=== PATIENT | female | born 1935 | race Caucasian/White ===

== ENCOUNTER 2023-08-05 15:58 | Inpatient (IN) ==
--- NOTE | 2023-08-05 16:26 | Emergency Department Note ---
Impression & Plan AMS (altered mental status), Acute hyponatremia ED Provider Note NAME: SAGAR CAIN AGE: 87 SEX: F : 1935 ARRIVES VIA: Walk-In INFORMANT: Patient, daughter ED PROVIDER(S): Bashir Hoyos DO CHIEF COMPLAINT: AMS HPI: Patient is an 87-year-old female who presents to the ER with a past medical history knee pain, DJD and hyperlipidemia as well as GERD for altered mental status. Daughter who is present at bedside gives the entire history and notes that patient normally texted her around 11 AM. Last known well was last night. She did not text her at 11 and when she eventually called her patient was very confused. She does understand how to work the phone were held attacks. She does not know what was going on. When the daughter got home the house was a mess and patient was not making sense and consequently she brought her in for evaluation. Patient was complaining of a headache at that time. Currently patient complains of a headache as well as some chest pain which has been present since this morning although she forgot about the chest pain intermittently during the exam. Denies any belly pain nausea vomiting or diarrhea. No dysuria urgency or frequency. ADDITIONAL HISTORY OBTAINED: Per HPI Chronic Medical/Social Conditions Affecting Care: Per HPI PAST MEDICAL HISTORY:See Below PAST SURGICAL HISTORY:See Below FAMILY HISTORY:See Below SOCIAL HISTORY:See Below HOME MEDICATIONS:See Below ALLERGIES:See Below VITALS:See Below PHYSICAL EXAMINATION: GENERAL: Sitting up in bed, alert, well appearing, well nourished, no distress, non-toxic EYE EXAM: normal conjunctiva. PERRL and EOM's grossly intact. OROPHARYNX: no exudate, no erythema, lips, buccal mucosa, and tongue normal and mucous membranes are moist NECK: supple, no nuchal rigidity, no adenopathy, non-tender LUNGS: Clear to auscultation. Normal chest wall mechanics HEART: no murmurs, S1 normal and S2 normal ABDOMEN: abdomen soft, non-tender, normo-active bowel sounds, no masses, no rebound or guarding. BACK: Back is symmetrical on inspection and there is no deformity, no midline tenderness, no CVA tenderness. SKIN: no rashes and no bruising UPPER EXTREMITIES: upper extremities are grossly normal. LOWER EXTREMITIES: No pitting edema. NEURO EXAM: Oriented to person but not place or year, cranial nerves II-XII intact, normal speech, no weakness of arms, no weakness of legs. No drift. Finger to nose intact. Gross sensation intact. MEDICAL DECISION MAKING: Patient is an 87-year-old female who presents ER for altered mental status. IV was established blood was obtained. Labs show no significant leukocytosis or anemia. INR unremarkable. BMP along LFTs bilirubin and troponin was negative. Lipase was normal. UA was clean. Patient presented to the ER for altered mental status. No clear source with a negative CT head. She was updated bedside. She was given IV fluids. Updated daughter and patient was admitted after discussion with the hospitalist for further evaluation management treatment. Consults/Care Managements Discussions: Per MDM Triage Nursing notes reviewed. Limited review of prior medical records performed Vital Signs: reviewed and remarkable for HTN Differential diagnosis: Differential diagnoses includes but is not limited to toxic, metabolic, infectious, traumatic, cardiac, neurologic, hematologic, psychiatric and inflammatory etiologies. ER treatment provided: See below Diagnostics interpreted by me include EKG and cardiac monitoring as listed below: -Cardiac Monitoring: An order was placed for continuous cardiac monitoring. The monitor shows a rate of 80 with sinus rhythm. -ECG: Sinus rhythm rate 74 Left axis Septal Q waves QTc 414 -Laboratory studies:Interpreted by me as stated above in MDM and shown below. Imaging studies: Xrays: As interpreted by me: Portable AP upright 1 view of the chest shows no focal infiltrate CTs show: CTA of the head and neck was negative Procedures:none Critical Care: None Past Med/Surg History Medical History Aortic valve sclerosis CKD (chronic kidney disease) stage 3, GFR 30-59 ml/min GERD (gastroesophageal reflux disease) H/O: HTN (hypertension) Hyperparathyroidism Hypothyroid IBS (irritable bowel syndrome) Spinal stenosis, lumbar Surgical History No pertinent past surgical history Social History Smoking Status: Never smoker Hx Alcohol Use: No Hx Substance Use: No Preferred Language: Dominican current occupational status: retired Feels Safe at Home: Yes Allergies Allergies Allergy/AdvReac Type Severity Reaction Status Date / Time domperidone Allergy Unknown UNKNOWN Unverified 08/05/23 17:19 ibuprofen Allergy Unknown CANNOT Unverified 08/05/23 17:19 TAKE DUE KIDNEY FCT naproxen Allergy Unknown CANNOT Unverified 08/05/23 17:19 TAKE DUE TO KIDNEY FCT Penicillins Allergy Unknown HAS Verified 08/05/23 17:19 TOLERATED CEPHALOSPORINS Sulfa (Sulfonamide Allergy Unknown Unknown Verified 08/05/23 17:21 Antibiotics) ibandronate sodium Allergy Unknown Verified 08/05/23 17:20 [From [facility]] shellfish derived Allergy Unknown Verified 08/05/23 17:21 aspirin AdvReac Unknown Unknown Verified 08/05/23 17:19 Home Meds Home Medications Medication Instructions Recorded Confirmed acetaminophen 500 mg tablet 1,000 mg PO QAM 08/05/23 08/05/23 (Tylenol Extra Strength) amlodipine 2.5 mg tablet 2.5 mg PO QAM 08/05/23 08/05/23 aspirin 81 mg tablet,delayed 81 mg PO DAILY 08/05/23 08/05/23 release coenzyme Q10 10 mg capsule (Co 0 mg PO DAILY 08/05/23 08/05/23 Q-10) famotidine 20 mg tablet 20 mg PO AMHS 08/05/23 08/05/23 fentanyl 50 mcg/hr transdermal 1 patch topical [id number] 08/05/23 08/05/23 patch fluticasone propionate 50 2 spray intranasal DAILY PRN Nasal 08/05/23 08/05/23 mcg/actuation nasal Congestion spray,suspension (Flonase Allergy Relief) gabapentin 400 mg capsule 400 mg PO TID 08/05/23 08/05/23 hydrochlorothiazide 25 mg tablet 12.5 mg PO QA 08/05/23 08/05/23 levothyroxine 75 mcg tablet 75 mcg PO QAM 08/05/23 08/05/23 lisinopril 30 mg tablet 30 mg PO QAM 08/05/23 08/05/23 metoprolol succinate 25 mg 25 mg PO .DAILY @ LUNCH 08/05/23 08/05/23 tablet,extended release 24 hr pantoprazole 40 mg tablet,delayed 40 mg PO DAILY 08/05/23 08/05/23 release rosuvastatin 5 mg tablet 5 mg PO DAILY 08/05/23 08/05/23 Results & Data (ED) Vital Signs Vital Signs - 24 hr 08/05/23 16:01 08/05/23 16:14 08/05/23 16:22 Temperature 36.8 C Temperature Source Temporal Artery Scan Pulse Rate 78 77 Pulse Rate from SpO2 Sensor Pulse Rhythm Regular Pulse Strength Normal Respiratory Rate 20 Respiratory Effort / Characteristics Non-Labored Spontaneous Respiratory Depth Normal Respiratory Pattern Regular Blood Pressure 157/90 H Blood Pressure Mean 112 Blood Pressure Position Sitting Pulse Oximetry 93 92 Oxygen Delivery Method Room Air Room Air Sepsis Recent Fever Within 48 Hours No Sepsis New/Unexplained Change in Mental Status No Sepsis Action Taken by Nursing No Action Required 08/05/23 17:50 Temperature Temperature Source Pulse Rate Pulse Rate from SpO2 Sensor 74 Pulse Rhythm Pulse Strength Respiratory Rate Respiratory Effort / Characteristics Respiratory Depth Respiratory Pattern Blood Pressure 140/69 Blood Pressure Mean 92 Blood Pressure Position Pulse Oximetry 93 Oxygen Delivery Method Sepsis Recent Fever Within 48 Hours Sepsis New/Unexplained Change in Mental Status Sepsis Action Taken by Nursing Laboratory Data 08/05/23 16:15 08/05/23 16:15 Lab Results 08/05/23 08/05/23 08/05/23 Range/Units 16:15 16:24 16:29 WBC 10.29 (4.8-10.8) K/ul RBC 4.66 (4.20-5.40) M/uL Hgb 13.9 (12.0-16.0) g/dl Hct 40.5 (37.0-47.0) % MCV 86.9 (80.0-100.0) fL MCH 29.8 (25.0-34.0) pg MCHC 34.3 (32.0-36.0) g/dL RDW Std Deviation 43.2 (36.4-46.3) fL RDW Coeff of Jaylene 13.7 (11.5-14.5) % Plt Count 252 (130-400) K/uL MPV 9.0 L (9.4-12.4) fL Immature Gran % (Auto) 0.4 % Neut % (Auto) 76.2 % Lymph % (Auto) 13.8 % Scott % (Auto) 8.6 % Eos % (Auto) 0.6 % Baso % (Auto) 0.4 % Neut # (Auto) 7.84 H (1.40-6.50) K/uL Lymph # (Auto) 1.42 (1.20-3.40) K/uL Scott # (Auto) 0.89 H (0.11-0.59) K/uL Eos # (Auto) 0.06 (0.00-0.50) K/uL Baso # (Auto) 0.04 (0.00-0.20) K/uL Immature Gran # (Auto) 0.04 (0.01-0.20) K/uL PT 10.9 (9.0-12.0) Seconds INR 1.0 (0.9-1.1) Sodium 134 L (136-145) mmol/L Potassium 4.6 (3.5-5.1) mmol/L Chloride 101 (98-107) mmol/L Carbon Dioxide 26 (21-32) mmol/L Anion Gap 7 (3-11) BUN 24 H (6-23) mg/dl Creatinine 1.28 H (0.6-1.2) mg/dl Est Cr Clr Drug Dosing 24.7 ml/min Est GFR ( Amer) 43.8 ml/min Est GFR (Non-Af Amer) 37.8 ml/min BUN/Creatinine Ratio 18.8 (10-20) Glucose 89 (70-99(Fasting)) mg/dl POC Glucose 85 (70-99) mg/dl Calcium 9.9 (8.6-10.3) mg/dl Total Bilirubin 0.7 (0.2-1.0) mg/dl AST 15 (13-39) U/L ALT 11 (7-52) U/L Alkaline Phosphatase 49 (34-104) U/L Troponin I High Sens 8.7 (0-14) pg/ml Total Protein 7.9 (6.0-8.3) gm/dl Albumin 4.5 (3.4-5.0) gm/dl Globulin 3.4 (2.5-4.0) gm/dl Albumin/Globulin Ratio 1.3 (0.9-2) Lipase 32 (11-82) U/L Urine Color Yellow Urine Appearance Clear (Clear) Urine pH 6.5 (4.5-7.5) Ur Specific [place] 1.019 (1.000-1.030) Urine Protein Negative (Negative) Urine Glucose (UA) Negative (Negative) Urine Ketones Negative (Negative) Urine Blood 2+ H (Negative) Urine Nitrite Negative (Negative) Urine Bilirubin Negative (Negative) Urine Urobilinogen Negative (Negative) Ur Leukocyte Esterase Trace H (Negative) Urine WBC (Auto) 1-5 (0-5) /hpf Urine RBC (Auto) 10-30 H (0-4) /hpf U Hyaline Cast (Auto) 1-5 (0-5) /lpf U Epithel Cells (Auto) >30 H (0-5) /lpf Urine Bacteria (Auto) Negative (Negative) Administered Medications Discontinued Medications Sodium Chloride (Nss) 1,000 mls @ 999 mls/hr IV .Q1H1M ONE Stop: 08/05/23 17:22 Last Infusion: 08/05/23 18:31 Dose: Infused Documented By: Admin: 08/05/23 16:32 Dose: 999 mls/hr Documented By: LEO Ioversol (Optiray 350 500ml) 107 ml IV ONCE ONE Stop: 08/05/23 17:17 Last Admin: 08/05/23 17:17 Dose: 107 ml Documented By: PANDA Imaging Data Radiologist's Impression: Chest X-Ray 08/05/23 16:09 XR chest 1V portable CLINICAL HISTORY: Chest pain, nonspecific COMPARISON STUDY: Chest radiograph June 17, 2022. FINDINGS: Patient is rotated. No pneumothorax or pleural effusion is present. There is no consolidation or evidence for pulmonary edema. Cardiomediastinal silhouette is stable. IMPRESSION: No acute cardiopulmonary findings. No change in appearance of the chest. ACT 112: Negative or not required by law. Electronically signed by: Codey Cameron M.D. 08/05/2023 4:41 PM Head CTA 08/05/23 16:22 CT angio neck with con, CT angio head wo/w CLINICAL HISTORY: ams TECHNIQUE: Contiguous axial CT images of the head were acquired from the base of the skull to the vertex without intravenous contrast administration. CT angiography of the head and neck was performed following intravenous administration of iodinated contrast. Coronal and sagittal MIPS were obtained from the axial data set and were submitted for review. Automated dose lowering techniques and/or adjustment according to patient size were utilized for this examination. All measurements were calculated based on NASCET criteria. CT DOSE: 1214.79 mGy.cm Comparison: None available at the time of this dictation. FINDINGS: CT head: There is no acute intracranial hemorrhage or evidence of acute territorial infarction. No shift of the midline structures, mass effect, or extra-axial abnormalities are shown. Performed interstitial thickening is seen. CTA Neck: The left common carotid artery shares common origin with the innominate artery. Atherosclerotic plaque is present in the aortic arch and at the origin of the great vessels. The common carotid, external carotid, cervical segments of the internal carotid arteries, and the cervical segments of the vertebral arteries are patent without hemodynamically significant stenosis. The vertebral arteries are codominant. CTA Head: The anterior and posterior cerebral circulations are patent. No hemodynamically significant stenosis, aneurysm, dissection, or arteriovenous malformation is shown. IMPRESSION: 1. No acute intracranial hemorrhage, evidence of acute territorial infarction, or other acute intracranial disease process. 2. No occlusion, hemodynamically significant stenosis, or dissection in the major cervical arteries. 3. No occlusion, hemodynamically significant stenosis, aneurysm, dissection, or arteriovenous malformation in the major intracranial arteries. Assessment of stenosis of the internal carotid arteries is based on NASCET criteria. ACT 112: Negative or not required by law. Electronically signed by: Miquel Chua M.D. 08/05/2023 6:22 PM Neck CTA 08/05/23 16:22 CT angio neck with con, CT angio head wo/w CLINICAL HISTORY: ams TECHNIQUE: Contiguous axial CT images of the head were acquired from the base of the skull to the vertex without intravenous contrast administration. CT angiography of the head and neck was performed following intravenous administration of iodinated contrast. Coronal and sagittal MIPS were obtained from the axial data set and were submitted for review. Automated dose lowering techniques and/or adjustment according to patient size were utilized for this examination. All measurements were calculated based on NASCET criteria. CT DOSE: 1214.79 mGy.cm Comparison: None available at the time of this dictation. FINDINGS: CT head: There is no acute intracranial hemorrhage or evidence of acute territorial infarction. No shift of the midline structures, mass effect, or extra-axial abnormalities are shown. Performed interstitial thickening is seen. CTA Neck: The left common carotid artery shares common origin with the innominate artery. Atherosclerotic plaque is present in the aortic arch and at the origin of the great vessels. The common carotid, external carotid, cervical segments of the internal carotid arteries, and the cervical segments of the vertebral arteries are patent without hemodynamically significant stenosis. The vertebral arteries are codominant. CTA Head: The anterior and posterior cerebral circulations are patent. No hemodynamically significant stenosis, aneurysm, dissection, or arteriovenous malformation is shown. IMPRESSION: 1. No acute intracranial hemorrhage, evidence of acute territorial infarction, or other acute intracranial disease process. 2. No occlusion, hemodynamically significant stenosis, or dissection in the major cervical arteries. 3. No occlusion, hemodynamically significant stenosis, aneurysm, dissection, or arteriovenous malformation in the major intracranial arteries. Assessment of stenosis of the internal carotid arteries is based on NASCET criteria. ACT 112: Negative or not required by law. Electronically signed by: Miquel Chua M.D. 08/05/2023 6:22 PM Discharge Plan Visit Data Chief Complaint: TIA Symptoms Stated Complaint: HEADACHE, CONFUSION, WEAKNESS, MEM LOSS ED Provider: Bashir Hoyos Discharge Problem: AMS (altered mental status), Acute hyponatremia Patient Disposition: Admitted As Inpatient Discharge Instructions Interventions: ED Discharge Assessment Last Done: 08/05/23 21:25 Discharge Problem: AMS (altered mental status) Qualifiers: Altered mental status type: unspecified Qualified Code(s): R41.82 - Altered mental status, unspecified
[2023-08-05 16:27] LABS: Basophils # (auto) 0.04 K/uL (0.00-0.20); Basophils % (auto) 0.4 %; Eosinophils # (auto) 0.06 K/uL (0.00-0.50); Eosinophils % (auto) 0.6 %; Hematocrit (blood only) 40.5 % (37.0-47.0); Hemoglobin 13.9 g/dl (12.0-16.0); Immature Granulocytes # (auto) 0.04 K/uL (0.01-0.20); Immature Granulocytes % (auto) 0.4 %; Lymphocytes # (auto) 1.42 K/uL (1.20-3.40); Lymphocytes % (auto) 13.8 %; Mean Corpuscular Hemoglobin 29.8 pg (25.0-34.0); Mean Corpuscular Hgb Conc 34.3 g/dL (32.0-36.0); Mean Corpuscular Volume 86.9 fL (80.0-100.0); Monocytes # (auto) 0.89 K/uL (0.11-0.59); Monocytes % (auto) 8.6 %; Neutrophils # (auto) 7.84 K/uL (1.40-6.50); Neutrophils % (auto) 76.2 %; Platelet Count 252 K/uL (130-400); RDW Coefficient of Variation 13.7 % (11.5-14.5); RDW Standard Deviation 43.2 fL (36.4-46.3); Red Blood Count 4.66 M/uL (4.20-5.40); White Blood Count 10.29 K/ul (4.8-10.8)
[2023-08-05] MEDS: SODIUM CHLORIDE 0.9% 1,000 ML IV ONE (16:32)
[2023-08-05 16:40] LABS: Prothrombin Time 10.9 Seconds (9.0-12.0)
--- NOTE | 2023-08-05 16:42 | XRay Report ---
XR chest 1V portable CLINICAL HISTORY: Chest pain, nonspecific COMPARISON STUDY: Chest radiograph June 17, 2022. FINDINGS: Patient is rotated. No pneumothorax or pleural effusion is present. There is no consolidati on or evidence for pulmonary edema. Cardiomediastinal silhouette is stable. IMPRESSION: No acute cardiopulmonary findings. No change in appearance of the chest. ACT 112: Negative or not required by law. Electronically signed by: Codey Cameron M.D. 08/05/2023 4:41 PM
[2023-08-05 16:46] LABS: Albumin Level 4.5 gm/dl (3.4-5.0); Bilirubin,Total 0.7 mg/dl (0.2-1.0); Calcium 9.9 mg/dl (8.6-10.3); Potassium 4.6 mmol/L (3.5-5.1)
[2023-08-05 16:52] LABS: Albumin Globulin Ratio 1.3 (0.9-2); BUN Creatinine Ratio 18.8 (10-20); Creatinine Clr Calc Pharmacy 24.7 ml/min; Est GFR (African American) 43.8 ml/min; Est GFR (Non-African American) 37.8 ml/min; Globulin 3.4 gm/dl (2.5-4.0); Total Protein 7.9 gm/dl (6.0-8.3)
[2023-08-05 16:55] LABS: Appearance Urine Clear (Clear); Bacteria Urine Automated Negative (Negative); Bilirubin Urine Negative (Negative); Blood Urine 2+ (Negative); Color Urine Yellow; Epithelial Cell Urine Auto >30 /lpf (0-5); Glucose Urine UA Negative (Negative); Ketones Urine Negative (Negative); Leukocyte Esterase Urine Trace (Negative); Nitrite Urine Negative (Negative); Protein Urine Negative (Negative); Specific Gravity Urine 1.019 (1.000-1.030); Urobilinogen Urine Negative (Negative); pH Urine 6.5 (4.5-7.5)
[2023-08-05 16:55] LABS: Troponin I High Sensitivity 8.7 pg/ml (0-14)
[2023-08-05] MEDS: OPTIRAY 350 500ml IV ONE (17:17)
--- NOTE | 2023-08-05 18:23 | CT Scan Report ---
CT angio neck with con, CT angio head wo/w CLINICAL HISTORY: ams TECHNIQUE: Contiguous axial CT images of the head were acquired from the base of the skull to the dawood sidra without intravenous contrast administration. CT angiography of the head and neck was performed f ollowing intravenous administration of iodinated contrast. Coronal and sagittal MIPS were obtained fr om the axial data set and were submitted for review. Automated dose lowering techniques and/or adjus tment according to patient size were utilized for this examination. All measurements were calculated based on NASCET criteria. CT DOSE: 1214.79 mGy.cm Comparison: None available at the time of this dictation. FINDINGS: CT head: There is no acute intracranial hemorrhage or evidence of acute territorial infarction. No sh ift of the midline structures, mass effect, or extra-axial abnormalities are shown. Performed interstitial thickening is seen. CTA Neck: The left common carotid artery shares common origin with the innominate artery. Atheroscle rotic plaque is present in the aortic arch and at the origin of the great vessels. The common carotid , external carotid, cervical segments of the internal carotid arteries, and the cervical segments of the vertebral arteries are patent without hemodynamically significant stenosis. The vertebral arterie s are codominant. CTA Head: The anterior and posterior cerebral circulations are patent. No hemodynamically significan t stenosis, aneurysm, dissection, or arteriovenous malformation is shown. IMPRESSION: 1. No acute intracranial hemorrhage, evidence of acute territorial infarction, or other acute intrac ranial disease process. 2. No occlusion, hemodynamically significant stenosis, or dissection in the major cervical arteries. 3. No occlusion, hemodynamically significant stenosis, aneurysm, dissection, or arteriovenous malfor mation in the major intracranial arteries. Assessment of stenosis of the internal carotid arteries is based on NASCET criteria. ACT 112: Negative or not required by law. Electronically signed by: Miquel Chua M.D. 08/05/2023 6:22 PM
--- NOTE | 2023-08-05 18:34 | History & Physical Report ---
Date of Service August 05, 2023 Assessment & Plan (1) AMS (altered mental status): Plan Pt is an 87yoF with PMHx significant for Hypothyroidism, HLD, hyperparathyroidism, HTN, GERD, IBS, CKD, DJD, chronic pain syndrome who presents with increased confusion that she states started the night prior to arrival. Altered mental status Acute toxic/metabolic encephalopathy Pt states AMS started night before, daughter noticed when she did not get a regular call head CT, head and neck CTA with no acute findings Brain MRI pending UA suggestive of infection, ordered urine Cx, follow On daily fentanyl patch, possible narcotic side effect with gabapentin 400mg TID? Consider Neurology consult for further TIA/stroke workup, PT/OT/Speech EEG ordered and pending Lyme and tick borne testing pending Delirium precautions. Frequent reorientation, avoid sedating medications as able (will hold gabapentin 400mg TID temporarily in setting of acute confusion, resume as able) Continue to monitor Hyponatremia Mild at 134 NSS @ 80 for 1 bag Abnormal EKG Pt with EKGs noting first degree heart block While not worrisome will order echo she is on a beta guilherme Continue to monitor on telemetry for potential progression Hyperparthyroidism Per [facility], nephrology recommended holding the home hctz On hold here CKD Cr stable, baseline of ~1.4 Continue to monitor Continue other home meds as ordered DVT prophylaxis: heparin SQ Diet: HH Dispo: Med/Surg with tele History of Present Illness Chief Complaint: Confusion Primary Care Provider: Milton Moreno MD Pt is an 87yoF with PMHx significant for Hypothyroidism, HLD, hyperparathyroidism, HTN, GERD, IBS, CKD, DJD, chronic pain syndrome who presents with increased confusion that she states started the night prior to arrival. Daughter however notes that her mother was last well about 9 pm last night but she noticed the acute confusion this morning. She states that she goes to work in the AM and her mother will usually text her by 11AM. However she did not receive a text today and her mother was not answering her phone calls. Eventually her mother answered a few hours later and told her she did not remember how to use the phone. Daughter states that when she got home things were in disarray, one dog was out. Pt states that she does not remember any of those events. Pt does note that she has been very tired recently. Very worn out. Sleeping quite a bit. Denies dysuria. Does have a chronic Hx of urinary incontinence. Denies fevers, chills or night sweats. They do note a prior episode of this before. Allergies Allergy/AdvReac Type Severity Reaction Status Date / Time domperidone Allergy Unknown UNKNOWN Unverified 08/05/23 17:19 ibuprofen Allergy Unknown CANNOT Unverified 08/05/23 17:19 TAKE DUE KIDNEY FCT naproxen Allergy Unknown CANNOT Unverified 08/05/23 17:19 TAKE DUE TO KIDNEY FCT Penicillins Allergy Unknown HAS Verified 08/05/23 17:19 TOLERATED CEPHALOSPORINS Sulfa (Sulfonamide Allergy Unknown Unknown Verified 08/05/23 17:21 Antibiotics) ibandronate sodium Allergy Unknown Verified 08/05/23 17:20 [From [facility]] shellfish derived Allergy Unknown Verified 08/05/23 17:21 aspirin AdvReac Unknown Unknown Verified 08/05/23 17:19 Home Medications Medication Instructions Recorded Confirmed Type acetaminophen 500 mg tablet 1,000 mg PO QAM 08/05/23 08/05/23 History (Tylenol Extra Strength) amlodipine 2.5 mg tablet 2.5 mg PO QA 08/05/23 08/05/23 History aspirin 81 mg tablet,delayed 81 mg PO DAILY 08/05/23 08/05/23 History release coenzyme Q10 10 mg capsule (Co 0 mg PO DAILY 08/05/23 08/05/23 History Q-10) famotidine 20 mg tablet 20 mg PO AMHS 08/05/23 08/05/23 History fentanyl 50 mcg/hr transdermal 1 patch topical [id number] 08/05/23 08/05/23 History patch fluticasone propionate 50 2 spray intranasal DAILY PRN Nasal 08/05/23 08/05/23 History mcg/actuation nasal Congestion spray,suspension (Flonase Allergy Relief) gabapentin 400 mg capsule 400 mg PO TID 08/05/23 08/05/23 History hydrochlorothiazide 25 mg tablet 12.5 mg PO QAM 08/05/23 08/05/23 History levothyroxine 75 mcg tablet 75 mcg PO QAM 08/05/23 08/05/23 History lisinopril 30 mg tablet 30 mg PO QAM 08/05/23 08/05/23 History metoprolol succinate 25 mg 25 mg PO .DAILY @ LUNCH 08/05/23 08/05/23 History tablet,extended release 24 hr pantoprazole 40 mg tablet,delayed 40 mg PO DAILY 08/05/23 08/05/23 History release rosuvastatin 5 mg tablet 5 mg PO DAILY 08/05/23 08/05/23 History Past Med/Surg History Medical History Aortic valve sclerosis CKD (chronic kidney disease) stage 3, GFR 30-59 ml/min GERD (gastroesophageal reflux disease) H/O: HTN (hypertension) Hyperparathyroidism Hypothyroid IBS (irritable bowel syndrome) Spinal stenosis, lumbar Surgical History No pertinent past surgical history Social History Smoking Status: Never smoker Hx Alcohol Use: No Hx Substance Use: No Preferred Language: Estonian current occupational status: retired Feels Safe at Home: Yes Review of Systems Review of Systems: All systems reviewed & are unremarkable except as noted in HPI & below Physical Exam Physical Exam: General: Alert, takes some time to answer orientation questions. No acute distress Skin: No noted rashes or bruises Psych: Appropriate mood and affect Neuro: Orientation requires effort and pt aware it is happening HEENT: NC/AT Chest: Nontender to palpation. CV: RRR Resp: Breath sounds clear bilaterally, no increased effort of breathing. Abdomen: Soft, nontender, nondistended. Extremities: No edema in lower extremities bilaterally. Results & Data Results & Data Vital Signs (Past 12 Hours) Vital Signs Temp Pulse Resp BP Pulse Ox O2 Del Method 08/05/23 16:22 77 08/05/23 16:14 92 Room Air 08/05/23 16:01 36.8 C 78 20 157/90 H 93 Room Air Diagnostic Findings Chest X-Ray 08/05/23 16:09 XR chest 1V portable CLINICAL HISTORY: Chest pain, nonspecific COMPARISON STUDY: Chest radiograph June 17, 2022. FINDINGS: Patient is rotated. No pneumothorax or pleural effusion is present. There is no consolidation or evidence for pulmonary edema. Cardiomediastinal silhouette is stable. IMPRESSION: No acute cardiopulmonary findings. No change in appearance of the chest. ACT 112: Negative or not required by law. Electronically signed by: Codey Cameron M.D. 08/05/2023 4:41 PM Head CTA 08/05/23 16:22 CT angio neck with con, CT angio head wo/w CLINICAL HISTORY: ams TECHNIQUE: Contiguous axial CT images of the head were acquired from the base of the skull to the vertex without intravenous contrast administration. CT angiography of the head and neck was performed following intravenous administration of iodinated contrast. Coronal and sagittal MIPS were obtained from the axial data set and were submitted for review. Automated dose lowering techniques and/or adjustment according to patient size were utilized for this examination. All measurements were calculated based on NASCET criteria. CT DOSE: 1214.79 mGy.cm Comparison: None available at the time of this dictation. FINDINGS: CT head: There is no acute intracranial hemorrhage or evidence of acute territorial infarction. No shift of the midline structures, mass effect, or extra-axial abnormalities are shown. Performed interstitial thickening is seen. CTA Neck: The left common carotid artery shares common origin with the innominate artery. Atherosclerotic plaque is present in the aortic arch and at the origin of the great vessels. The common carotid, external carotid, cervical segments of the internal carotid arteries, and the cervical segments of the vertebral arteries are patent without hemodynamically significant stenosis. The vertebral arteries are codominant. CTA Head: The anterior and posterior cerebral circulations are patent. No hemodynamically significant stenosis, aneurysm, dissection, or arteriovenous malformation is shown. IMPRESSION: 1. No acute intracranial hemorrhage, evidence of acute territorial infarction, or other acute intracranial disease process. 2. No occlusion, hemodynamically significant stenosis, or dissection in the major cervical arteries. 3. No occlusion, hemodynamically significant stenosis, aneurysm, dissection, or arteriovenous malformation in the major intracranial arteries. Assessment of stenosis of the internal carotid arteries is based on NASCET criteria. ACT 112: Negative or not required by law. Electronically signed by: Miquel Chua M.D. 08/05/2023 6:22 PM Neck CTA 08/05/23 16:22 CT angio neck with con, CT angio head wo/w CLINICAL HISTORY: ams TECHNIQUE: Contiguous axial CT images of the head were acquired from the base of the skull to the vertex without intravenous contrast administration. CT angiography of the head and neck was performed following intravenous administration of iodinated contrast. Coronal and sagittal MIPS were obtained from the axial data set and were submitted for review. Automated dose lowering techniques and/or adjustment according to patient size were utilized for this examination. All measurements were calculated based on NASCET criteria. CT DOSE: 1214.79 mGy.cm Comparison: None available at the time of this dictation. FINDINGS: CT head: There is no acute intracranial hemorrhage or evidence of acute territorial infarction. No shift of the midline structures, mass effect, or extra-axial abnormalities are shown. Performed interstitial thickening is seen. CTA Neck: The left common carotid artery shares common origin with the innominate artery. Atherosclerotic plaque is present in the aortic arch and at the origin of the great vessels. The common carotid, external carotid, cervical segments of the internal carotid arteries, and the cervical segments of the vertebral arteries are patent without hemodynamically significant stenosis. The vertebral arteries are codominant. CTA Head: The anterior and posterior cerebral circulations are patent. No hemodynamically significant stenosis, aneurysm, dissection, or arteriovenous malformation is shown. IMPRESSION: 1. No acute intracranial hemorrhage, evidence of acute territorial infarction, or other acute intracranial disease process. 2. No occlusion, hemodynamically significant stenosis, or dissection in the major cervical arteries. 3. No occlusion, hemodynamically significant stenosis, aneurysm, dissection, or arteriovenous malformation in the major intracranial arteries. Assessment of stenosis of the internal carotid arteries is based on NASCET criteria. ACT 112: Negative or not required by law. Electronically signed by: Miquel Chua M.D. 08/05/2023 6:22 PM (1) AMS (altered mental status) Altered mental status type: unspecified Qualified Code(s): R41.82 - Altered mental status, unspecified
[2023-08-05] MEDS ORDERED: FLUTICASONE PROPIONATE NA SPR 16 GM BTL NAE PRN (21:52)
[2023-08-05] MEDS ORDERED: POLYETHYLENE (MIRALAX) 17 GM PACK PO PRN (22:27)
[2023-08-05] MEDS ORDERED: ONDANSETRON INJ 2 MG/ML 2 ML VIAL IV PRN (22:27)
[2023-08-05] MEDS: SODIUM CHLORIDE 0.9% 1,000 ML IV SCH (22:55)
[2023-08-05 23:07] LABS: Lyme Screen Rflx Confirmation Positive (Negative)
[2023-08-06] MEDS: GADOBUTROL 65ML VIAL IV ONE (01:45)
[2023-08-06] MEDS: CHECK fentaNYL PATCH PLACEMENT SCH (01:45)
--- NOTE | 2023-08-06 03:55 | Magnetic Resonance Report ---
Exam(s): MRI HEAD W/WO Contrast IV Amt: 5.5cc gadavist EXAM: MR Head Without and With Intravenous Contrast CLINICAL HISTORY: Reason for exam: AMS. TECHNIQUE: Magnetic resonance images of the head/brain without and with intravenous contrast in multiple planes. CONTRAST: Patient received 5.5cc gadavist of IV contrast COMPARISON: Comparison made to prior head CT from August 05, 2023. FINDINGS: Brain: There are multiple small to tiny foci of acute ischemic injury in the left occipital lobe and left thalamus. Mild nonspecific white matter changes. The flow voids at the base of the right are intact. No mass. No hemorrhage. Normal enhancement of the brain parenchyma. The dural venous sinuses are. Ventricles: Mild ventriculomegaly. Bones/joints: Unremarkable. No acute fracture. Sinuses: Chronic ethmoid sinusitis. No acute sinusitis. Mastoid air cells: Unremarkable as visualized. No mastoid effusion. Orbits: Unremarkable as visualized. IMPRESSION: Acute ischemic injuries within the left occipital lobe and thalamus. No evidence of hemorrhagic transformation. Communications: Verify Receipt Electronically signed by: Deepa Best MD 08/06/23 02:27 AM
[2023-08-06] MEDS: LEVOTHYROXINE SODIUM 75 MCG TABLET PO SCH (05:36)
[2023-08-06 06:53] LABS: Basophils # (auto) 0.05 K/uL (0.00-0.20); Basophils % (auto) 0.5 %; Eosinophils # (auto) 0.05 K/uL (0.00-0.50); Eosinophils % (auto) 0.5 %; Hematocrit (blood only) 36.7 % (37.0-47.0); Hemoglobin 12.7 g/dl (12.0-16.0); Immature Granulocytes # (auto) 0.04 K/uL (0.01-0.20); Immature Granulocytes % (auto) 0.4 %; Lymphocytes # (auto) 2.75 K/uL (1.20-3.40); Lymphocytes % (auto) 26.4 %; Mean Corpuscular Hemoglobin 30.4 pg (25.0-34.0); Mean Corpuscular Hgb Conc 34.6 g/dL (32.0-36.0); Mean Corpuscular Volume 87.8 fL (80.0-100.0); Mean Platelet Volume 9.4 fL (9.4-12.4); Monocytes # (auto) 1.19 K/uL (0.11-0.59); Monocytes % (auto) 11.4 %; Neutrophils # (auto) 6.34 K/uL (1.40-6.50); Neutrophils % (auto) 60.8 %; Platelet Count 223 K/uL (130-400); RDW Coefficient of Variation 13.6 % (11.5-14.5); RDW Standard Deviation 43.7 fL (36.4-46.3); Red Blood Count 4.18 M/uL (4.20-5.40); White Blood Count 10.42 K/ul (4.8-10.8)
[2023-08-06 07:18] LABS: Albumin Globulin Ratio 1.3 (0.9-2); Albumin Level 3.8 gm/dl (3.4-5.0); BUN Creatinine Ratio 14.3 (10-20); Bilirubin,Total 0.8 mg/dl (0.2-1.0); Calcium 9.1 mg/dl (8.6-10.3); Creatinine Clr Calc Pharmacy 28.3 ml/min; Est GFR (African American) 51.5 ml/min; Est GFR (Non-African American) 44.4 ml/min; Magnesium 1.7 mg/dl (1.7-2.4); Phosphorus 3.3 mg/dl (2.5-4.9); Potassium 4.2 mmol/L (3.5-5.1); Total Protein 6.8 gm/dl (6.0-8.3)
[2023-08-06 07:30] LABS: Toxic Vacuolation 2+
[2023-08-06] MEDS: ACETAMINOPHEN 500 MG TAB PO SCH (08:47)
[2023-08-06] MEDS: ROSUVASTATIN CALCIUM 5 MG TAB PO SCH (08:47)
[2023-08-06] MEDS: PANTOprazole 40 MG TAB PO SCH (08:47)
[2023-08-06] MEDS: CLOPIDOGREL BISULFATE 75 MG TAB PO ONE (08:47)
[2023-08-06] MEDS: amLODIPine BESYLATE 5 MG TAB PO SCH (08:47)
[2023-08-06] MEDS: ASPIRIN 81 MG ECTAB PO SCH (08:48)
[2023-08-06] MEDS: FAMOTIDINE 20 MG TAB PO SCH (08:48)
[2023-08-06] MEDS: lisinopril 10 MG TAB PO SCH (08:48)
[2023-08-06] MEDS: CLOPIDOGREL BISULFATE 75 MG TAB PO SCH (08:49)
[2023-08-06] MEDS ORDERED: HEPARIN SOD 5,000 UNIT/0.5 ML VIAL SQ SCH (09:00)
[2023-08-06] MEDS: GABAPENTIN 400 MG CAP PO SCH (10:20)
--- OUTSIDE RECORDS SUMMARY | 2023-08-06 11:18 | External Medical Summary | Summary of Care ---
Author Name Unknown Organization [facility] Address [address] [facility] [place] [address] Phone [phone] Care Team Providers Care Laborer [employer] Name Role Phone Milton Moreno MD Primary Care Provider Reason for Visit * Reason Comments eRx-Medication Refill Encounter Details Date Type Department Care Team (Late st Contact Info) Description 07/31/2023 Refill Cardiology, [facility] [address] [place] [address] Nivia Landeros, [address] [place] [address] Palpitations; HTN, goal below 150/90 Allergies Active Allergy Reactions Criticality Noted Date Comments Ibandronate Sodium 02/04/2010 Domperidone 04/16/2009 Side effects- bad, vivid dreams, but still taking it Penicillin G 08/25/1997 rash Shellfish-Derived Products 2 Sulfa Antibiotics 08/25/1997 Does not remember documented as of this encounter (statuses as of 07/31/2023) Medications Medication Sig Dispensed Refills Start Date End Date Status ASPIRIN 81 MG PO TABSIndications:t akes in the evening Take by mouth. Indications: takes in the evening 0 12/06/2013 Active Coenzyme Q10 (CO Q 10) 10 MG CAPSIndications:t akes at lunch Take 3 Tabs by mouth daily. Indications: takes at lunch 0 Active acetaminophen (TYLENOL) 500 MG TabletIndications :takes at lunch Take 2 Tablets by mouth in the morning. 0 Active Cholecalciferol (VITAMIN D) 50 MCG (2000 UT) CapsuleIndication s:takes at lunch Take 2,000 Units by mouth daily. Indications: takes at lunch 0 Active Fluticasone Propionate 50 MCG/ACT Nasal SuspensionIndicat ions:Chronic rhinitis Administer 2 Sprays into each nostril daily. 3 units for 3 months 48 g 3 05/31/2021 Active Triamcinolone Acetonide 0.1 % External Cream (Aristocort)Indic ations:Dermatitis Apply to rash two times a day x 2 weeks then stop. 15 g 0 04/02/2022 Active Famotidine 20 MG Oral Tablet (Pepcid)Indicatio ns:Gastroesophage al reflux disease, unspecified whether esophagitis present Take 1 Tablet by mouth in the morning and 1 Tablet before bedtime. 180 Tablet 1 01/02/2023 Active Gabapentin 400 MG Oral Capsule (Neurontin)Indica tions:Spinal stenosis, lumbar region, without neurogenic claudication Take 1 Capsule by mouth in the morning and 1 Capsule at noon and 1 Capsule before bedtime. 270 Capsule 3 01/03/2023 Active Pantoprazole Sodium 40 MG Oral Tablet Delayed Release (Protonix) TAKE 1 TABLET BY MOUTH EVERY DAY 90 Tablet 3 01/23/2023 Active Rosuvastatin Calcium 5 MG Oral Tablet (Crestor)Indicati ons:Dyslipidemia, goal LDL below 100 TAKE 1 TABLET BY MOUTH EVERY DAY 90 Tablet 3 01/23/2023 Active Lisinopril 30 MG Oral Tablet TAKE 1 TABLET BY MOUTH EVERY DAY IN THE MORNING 90 Tablet 3 01/23/2023 Active hydroCHLOROthiazi de 25 MG Oral Tablet (Hydrodiuril)Fior cations:HTN, goal below 150/90 Take 0.5 Tablets by mouth in the morning. HOLD MEDICATION FOR NOW-01/26/23. 90 Tablet 3 01/26/2023 Active Levothyroxine Sodium 75 MCG Oral Tablet (Levoxyl)Indicati ons:Hypothyroidis m, unspecified type (at least 30 min prior to breakfast or other meds) 90 Tablet 1 01/28/2023 Active amLODIPine Besylate 2.5 MG Oral Tablet (Norvasc)Indicati ons:HTN, goal below 150/90 Take 1 Tablet by mouth in the morning. 90 Tablet 2 02/02/2023 Active fentaNYL 50 MCG/HR Transdermal Patch 72 Hour (Duragesic)Indica tions:Spinal stenosis, lumbar region, without neurogenic claudication Place 1 Patch topically on the skin every 3 days. Apply for pain 10 Patch 0 07/07/2023 Active Metoprolol Succinate ER 25 MG Oral Tablet Extended Release 24 Hour (toPROL XL)Indications:Pa lpitations,HTN, goal below 150/90 TAKE 1 TABLET BY MOUTH DAILY TAKE AT LUNCH TIME 90 Tablet 3 07/31/2023 Active Metoprolol Succinate ER 25 MG Oral Tablet Extended Release 24 Hour (toPROL XL)Indications:Pa lpitations,HTN, goal below 150/90 TAKE 1 TABLET BY MOUTH DAILY TAKE AT LUNCH TIME 90 Tablet 3 07/28/2022 07/31/19 24 Discontinued documented as of this encounter (statuses as of 07/31/2023) Active Problems Problem Noted Date Diagnosed Date Chronic kidney disease, stage 3b 09/18/2020 Overview: Per CKD protocol Hypertensive kidney disease with stage 3b chronic kidney disease 03/19/2020 Overview: Per CKD protocol Hyperparathyroidism, secondary renal 06/24/2019 Non-rheumatic mitral regurgitation 04/28/2017 Palpitations 02/06/2017 Non-rheumatic tricuspid valve insufficiency 01/10 Aortic valve sclerosis 02/06/2017 HTN, goal below 150/90 08/20/2016 MEDICATION USE AGREEMENT 09/05/2014 Overview: 09/05/14 Dyslipidemia, goal LDL below 100 06/03/2013 Spinal stenosis, lumbar ashwini on, without neurogenic claudication 11/23/2012 Neuropathy 11/23/2012 DJD (degenerative joint disease) of knee 013 Hypothyroidism 12/01/2011 Vitamin D deficiency 12/01/2011 Idiopathic scoliosis 04/15/2011 Postmenopausal atrophic vaginitis 02/24/2011 Wedge Deformity - T9 11/13/2009 Esophageal reflux IBS (irritable bowel syndrome) Diverticulosis Gastroparesis Rhinitis, chronic Chronic pain syndrome Senile osteoporosis Slow transit constipation documented as of this encounter (statuses as of 07/31/2023) Resolved Problems Problem Noted Date Diagnosed Date Resolved Date Hypertensive kidney disease with chronic kidney disease stage III 08/13/2018 03/22/2020 Overview: Per CKD protocol Essential hypertension with goal blood pressure less than 140/90 02/20/2016 08/20/2016 HTN, goal below 140/90 06/06/201502/19 HTN, goal below 140/90 03/13/201409/05 Preop examination 12/06/2013 09/05/2014 Right knee DJD 06/03/2013 02/20/2017 Knee pain, right 06/03/2013 08/20/2016 Osteoarthritis of hip 11/23/20122016 Overview: ICD-10 update of inactive term Tick bite of thigh 03/03/2012 5 Dyslipidemia, goal LDL below 100 03/03/2012 03/10/2015 Toxic effect of venom 03/03/20122014 Overview: ICD-10 update of inactive term Need for shingles vaccine 03/03/2012 Dyslipidemia, goal LDL below 100 12/09/2011 01/25/2013 Kidney disease, chronic, sta ge III (GFR 30-59 ml/min) 12/01/2011 08/18/2018 Hypothyroidism 12/01/2011 05/25/2012 Backache 12/01/2011 09/05/2014 Overweight (BMI 25.0-29.9) 04/15/2011 0 08/20/2016 Overview: BMI= 26.23 04/15/11 Cervicalgia 03/13/2011 09/05/2014 DJD, NECK 03/13/2011 09/05/2014 Abdominal pain, generalized 03/04/2011 09/05/2014 Backache 02/10/2011 12/01/2011 OVERWEIGHT, BMI= 27.80 10/08/10 10/08/2010 08/20/2016 Vitamin D deficiency 10/08/2010 012 OVERWEIGHT, BMI= 27.27 03/19/10 03/19/2010 08/20/2016 Urinary tract infection 02/08/201008/10 Osteoporosis 12/25/2009 09/05/2014 Slow transit constipation 09/04/2009 Chronic pain syndrome 07/16/20092014 MEDICATION USE AGREEMENT 07/16/2009 Dyslipidemia, goal LDL below 100 04/19/2009 06/03/2013 Overview: Per Lipid Taxonomy. HTN, goal below 130/80 03/26/200902/10 DIAPHORESIS 12/01/2008 09/05/2014 R/O TIA 12/01/2008 09/05/2014 Pneumonia due to organism 11/16/2008 Overview: ICD-10 update of inactive term Malaise and fatigue 11/16/2008 10/09/19 11 Delirium due to general medical condition 11/16/2008 10/08/2010 Overview: ICD-10 update of inactive term HYPONATREMIA 11/16/2008 10/08/2010 Chronic rhinitis 11/16/2008 09/05/2014 TICK BITE, RIGHT NECK 08/28/20082014 Toxic effect of venom 08/28/20082014 Overview: ICD-10 update of inactive term Gastroparesis 06/27/2008 09/05/2014 DJD, LEFT KNEE 04/17/2008 09/05/2014 ADVANCE DIRECTIVE INFORMATION 04/12/2008 09/05/2014 Overview: No, Advance Directive brochure given to patient. Disorder of gallbladder 03/21/200808/10 GERD (gastroesophageal reflux disease) 01/24/2008 07/16/2009 Abdominal pain, epigastric 01/24/2008 1 05/19/2009 Kidney disease, chronic, sta ge III (GFR 30-59 ml/min) 06/11/2007 12/01/2011 Overview: Based on labs from 05/19/07 Periumbilical abdominal pain 09/19/2005 03/19/2010 Overview: ICD-10 update of inactive term Lumbosacral spondylosis 12/11/200408/10 Spinal stenosis of lumbar re gion without neurogenic claudication 12/11/2004 01/19/2006 Hypopotassemia 10/25/2004 01/19/2006 Postmenopausal bleeding 10/25/200401/09 S/P SURGERY FOR INTESTINAL OBSTRUCTION 08/14/2004 09/05/2014 ROUTINE MEDICAL EXAM 02/02/2004 015 Gynecological examination 02/02/2004 Special screening for malign ant neoplasms, colon 02/02/2004 07/19/2008 Overview: Resolved per Screening Diagnosis Protocol #6 Screening for malignant neoplasm of breast 02/02/2004 07/19/2008 Overview: Resolved per Screening Diagnosis Protocol #6 Loss of height 02/02/2004 09/05/2014 Menopause 02/02/2004 09/05/2014 JOINT PAIN-PELVIS 09/19/2003 01/19/2006 NEUROPATHY, RIGHT LEG 06/30/20032014 Need for influenza vaccination 04/04/2003 09/05/2014 SPINAL STENOSIS-LUMBAR 11/22/200209/05 DISC DIS DCD-BDS-GGWINS 11/22/200201/2010 PAIN IN LIMB, RIGHT LEG 11/22/200208/10 AC MAXILLARY SINUSITIS, RIGHT 09/07/2002 01/19/2006 ACUTE URI NOS 09/07/2002 01/19/2006 Nausea 09/07/2002 01/19/2006 Overview: ICD-10 update of inactive term PULSATILE TINNITUS 09/07/200209/05/ 5 BENIGN HYPERTENSION 08/23/2002 03/26/20 09 DISC DIS OOW-QQU-IVXGRD 07/28/200201/09 DIVERTICULOSIS OF COLON 07/28/200208/10 Overview: Colonoscopy 03/19/06--repeat 10 years Chest pain 03/19/2010 Esophageal reflux 09/05/2014 Mixed dyslipidemia 9 Overview: Per Lipid Taxonomy. Irritable bowel syndrome Hypothyroidism 12/01/2011 Carpal tunnel syndrome 09/05 HTN, goal below 140/90 03/06 HTN, goal below 150/90 03/13 HTN, goal below 150/90 06/06 documented as of this encounter (statuses as of 07/31/2023) Immunizations Name Administration Dates Next Due Pneumococcal Conjugate Vacc, 13 Valent (Prevnar) 03/10/2015 Season Influenza, Quad, PF, Adjuvanted, 65+ Yrs, IM (FLUAD) 03/02/2020 Seasonal Influenza, PF, 6 M & above, IM , (FluLaval or Fluzone) 01/24/2019,02/09/2018,02/20/2017 Seasonal Influenza, Quadriva lent Hd (Fluzone Hd) 03/30/2023,03/15/2022,03/18/2021 Seasonal Influenza, Quadriva lent, No Preserve, IM 03/07/2016,03/10/2015 Seasonal Influenza, Split, I IV3, With Preserve, Inj 03/06/2014,01/25/2013,03/03/2012,2010,03/28/2010,02/05/2009,05/09/2008,1 05/30/2006 TDAP (age 10 and older)(Boostrix) 12/11/2012 Varicella Zoster Vaccine (Adult) 02/17/2012 Zoster Vaccine Recombinant (Shingrix) 10/25/2018 documented as of this encounter Social History Tobacco Use Types Packs/Day Years Used Date Smoking Tobacco: Never Smokeless Tobacco: Never Alcohol Use Standard Drinks/Week Comments No 0 (1 standard drink = 0.6 oz pur e alcohol) none PHQ-2 Answer Date Recorded PHQ Adult Total Score 0 06/23/2022 Hunger Vital Sign Answer Date Recorded Within the past 12 months, y ou worried that your food would run out before you got the money to buy more. Never true 06/23/19 23 Within the past 12 months, t he food you bought just didn't last and you didn't have money to get more. Never true 06/23/2022 Sex and Gender Information Value Date Recorded Sex Assigned at Female 12/28/2021 1:11 PM EDT Gender Identity Female 12/28/2021 1:11 PM EDT Sexual Orientation Straight 12/28/2021 1: 11 PM EDT Job Start Date Occupation Industry Not on file Not on file Not on file documented as of this encounter Miscellaneous Notes * Telephone Encounter - Nivia Landeros DO - 07/31/2023 11:47 AM EDTSigned Prescriptions: Disp Refills Metoprolol Succinate ER 25 MG Oral Tablet *90 Tab*3 Sig: TAKE 1 TABLET BY MOUTH DAILY TAKE AT LUNCH TIME Authorizing Provider: NIVIA LANDEROS * Telephone Encounter - Bushra Beaver COT - 07/31/2023 9:44 AM EDTPending Prescriptions: Disp Refills Metoprolol Succinate ER 25 MG Oral Tablet *90 Tab*3 Sig: TAKE 1 TABLET BY MOUTH DAILY TAKE AT LUNCH TIME * Telephone Encounter - Bushra Beaver COT - 07/31/2023 9:43 AM EDT Did you pend patient's preferred pharmacy and medication before forwarding?yes Pharmacy: [facility] #[id number] Pending Prescriptions: Disp Refills Metoprolol Succinate ER 25 MG Oral Tablet*90 Tab*3 Sig: TAKE 1 TABLET BY MOUTH DAILY TAKE AT LUNCH TIME Last Visit: 07/02/2022 (in office), Visit date not found (telemedicine) Next Visit: 01/04/2024 If no future appointments scheduled, and last appointment is greater than a year ago, please schedule patient for a follow-up appointment Last date the medication was ordered: 07-28-2022 Is this request for a controlled substance?No Urine Drug Screen: Results for orders placed or performed in visit on 08/20/16 OPIOIDS/BENZO COMPLIANCE MONITORING W/INTERP Result Value COMPLIANCE INTERP (NOTE) URINE DRUG SCREEN RESULT Amphetamine NEGATIVE Barbiturates NEGATIVE Benzodiazepines NEGATIVE Cannabinoids NEGATIVE Cocaine Metabolite NEGATIVE METHADONE METABOLITE NEGATIVE Morphine / Codeine NEGATIVE OXYCODONE NEGATIVE COMMENT THE ABOVE SCREENING RESULTS ARE PRESUMPTIVE AND CAN ONLY BE USED FOR MEDICAL PURPOSES. CONFIRMATORY TESTING IS AVAILABLE UPON REQUEST. Cutoff Concentration URINE VALID INTERP NORMAL CREATININE RUIZ 154 NITRITE RUIZ 15 pH RUIZ 4.8 Results for orders placed or performed in visit on 07/11/15 OPIOIDS/BENZO COMPLIANCE MONITORING TEST Result Value URINE DRUG SCREEN RESULT Amphetamine NEGATIVE Barbiturates NEGATIVE Benzodiazepines NEGATIVE Cannabinoids NEGATIVE Cocaine Metabolite NEGATIVE METHADONE METABOLITE NEGATIVE Morphine / Codeine NEGATIVE OXYCODONE NEGATIVE COMMENT THE ABOVE SCREENING RESULTS ARE PRESUMPTIVE AND CAN ONLY BE USED FOR MEDICAL PURPOSES. CONFIRMATORY TESTING IS AVAILABLE UPON REQUEST. Cutoff Concentration URINE VALID INTERP NORMAL CREATININE RUIZ 112 NITRITE RUIZ 14 pH RUIZ 4.8 *Note: Due to a large number of results and/or encounters for the requested time period, some results have not been displayed. A complete set of results can be found in Results Review. Patient Phone Numbers Labs: Lab Results Component Value Date/Time CREAT 1.4 (H) 06/08/2023 03:49 PM CREAT 1.4 (H) 03/19/2020 11:32 AM POTASSIUM 4.7 06/08/2023 03:49 PM POTASSIUM 4.2 03/19/2020 11:32 AM TSH 0.63 06/08/2023 03:49 PM TSH 0.88 12/30/2019 01:48 PM LDLCALC 78 06/08/2023 03:49 PM LDLCALC 76 05/16/2019 11:50 AM LDLDIRECT NOT APPLICABLE 05/16/2019 11:50 AM LDLDIRECT 96 02/20/2016 04:10 PM ALT 14 06/08/2023 03:49 PM ALT 12 05/16/2019 11:50 AM documented in this encounter Plan of Treatment Upcoming Encounters Date Type Department Care Team (Late st Contact Info) Description 09/24/2023 3:30 PM EDT Office Visit Orthopaedics [facility] [address] [place] [address] Aris Bejarano DO [address] [place] [address] 01/04/2024 3:30 PM EDT Office Visit Cardiology, [facility] [address] [place] [address] Lyla Qureshi PA-C [address] [place] [phone] 05/09/2024 3:00 PM EST Office Visit Nephrology [address] [place] [address] Amy Montero MD [address] [facility], [place] [address] Health Maintenance Due Date Last Done Comments DXA Scan 10/08/2018 10/08/2016, 08/09, 02/24/2012, Additional history exists Zoster Vaccines (3 of 3) 12/20/2018 10/25/2018, 01/2012 DTaP,Tdap,and Td Vaccines (2 - Td or Tdap) 12/11/2022 12/11/2012, 02/09/2000 Mammogram 12/20/2022 12/20/2021, 07/09, 07/22/2019, Additional history exists COVID-19 Vaccine (3 - season) 2023 09/06/2020, 08/16/2020 Depression Screening 06/23/2023 06/23/2022, 02/20/2017, 03/10/2015 (Discussed) Albumin/Creatinine Ratio 07/25/2023 023, 03/19/2020, 08/31/2017, Additional history exists CKD HGB USE SMARTSET 71715 06/08/202406/08, 07/24/2022, 03/19/2020, Additional history exists CKD PHOS USE SMARTSET 13518 06/08/202405/12, 07/24/2022, 03/19/2020, Additional history exists TSH 06/08/2024 06/08/2023, 07/09, 06/12/2021, Additional history exists *BISPHONATE OR OTHER ACCEPTABLE MEDICATION NEEDED FOR OSTEOPOROSIS (REFER TO SMARTSET #1146) Addressed 03/10/2015 (Declined) Overridden w ith the intention of not completing the topic Pneumococcal Vaccine: 65+ Years Completed 03/10/2015, 02/02/2004 VITAMIN D LEVEL ONCE IN A LIFETIME-USE SMARTSET# 18605 Completed 07/24/2022, 03/19/2020, 05/13/2019, Additional history exists Influenza Vaccine (FLU shot) Completed 03/30/2023, 03/15/2022, 03/18/2021, Additional history exists GARDASIL-HPV IMMUNIZATION SERIES Aged Out No longer eligible based on patient's age to complete this topic Hepatitis B Aged Out No longer eligi ble based on patient's age to complete this topic MENINGOCOCCAL (MENACTRA/MENVEO) Aged Out No longer eligible based on patient's age to complete this topic documented as of this encounter Medical Devices Not on filedocumented as of this encounter Visit Diagnoses Diagnosis Palpitations HTN, goal below 150/90 documented in this encounter Advance Directives Latest Code Status on File Code Status Date Activated Date Inactivated Comments None 08/28/2003 3:18 PM 08/28/2003 3:18 PM 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
--- OUTSIDE RECORDS SUMMARY | 2023-08-06 11:18 | External Medical Summary | Summary of Care ---
Author Name Unknown Organization [facility] Address [address] [facility] [place] [address] Phone [phone] Care Team Providers Care Pressurised Container Filler Name Role Phone Milton Moreno MD Primary Care Provider [phone] Reason for Referral * Evaluate & Treat - Unlimited Visits (Within 10 days (routine)) - Authorized Specialty Diagnoses / Procedures Referred By Tam odom Referred To Contact Physical Therapy / Physical Medicine And Rehab Diagnoses Nontraumatic complete tear of right rotator cuff Chronic right shoulder pain Primary osteoarthritis of one hip, left Maria Fernanda Kennedy MD [address] [employer] [place] [id number] Referral ID Status Reason Start Date Expiration Date Visits Requested Visits Authorized [id number] Authorized Specialty Services Required 07/28/2023 999 999 Question Answer Referral Priority Within 10 days (routine) Where should this appointment be scheduled? [facility] * Evaluate & Treat - Unlimited Visits (Within 10 days (routine)) - Authorized Specialty Diagnoses / Procedures Referred By Tam odom Referred To Contact Orthopaedic Surgery / Orthopedics Diagnoses Primary osteoarthritis of one hip, left Maria Fernanda Kennedy MD [address] [employer] [place] [id number] Referral ID Status Reason Start Date Expiration Date Visits Requested Visits Authorized [id number] Authorized Specialty Services Required 07/28/2023 999 999 Question Answer Referral Priority Within 10 days (routine) Where should this appointment be scheduled? [facility] What body part is the patient being seen for? Hip What condition is the patient being seen for? Arthritis including related infection Comments Sobo or [place] Reason for Visit * Reason Comments Follow Up Left hip NEW PATIENT Right shoulder Encounter Details Date Type Department Care Team (Latest Contact Info) Description 07/28/2023 1:30 PM EDT Office Visit Orthopaedics [facility] [address] [place] [address] Maria Fernanda Kennedy MD [address] [place] [address] Nontraumatic complete tear of right rotator cuff*; Chronic right shoulder pain; Primary osteoarthritis of one hip, left Allergies Active Allergy Reactions Criticality Noted Date Comments Ibandronate Sodium 02/04/2010 Domperidone 04/16/2009 Side effects- bad, vivid dreams, but still taking it Penicillin G 08/25/1997 rash Shellfish-Derived Products 2 Sulfa Antibiotics 08/25/1997 Does not remember documented as of this encounter (statuses as of 07/28/2023) Medications Medication Sig Dispensed Refills Start Date End Date Status ASPIRIN 81 MG PO TABSIndications:alfreda es in the evening Take by mouth. Indications: takes in the evening 0 12/06/2013 Active Coenzyme Q10 (CO Q 10) 10 MG CAPSIndications:alfreda es at lunch Take 3 Tabs by mouth daily. Indications: takes at lunch 0 Active acetaminophen (TYLENOL) 500 MG TabletIndications:t akes at lunch Take 2 Tablets by mouth in the morning. 0 Active Cholecalciferol (VITAMIN D) 50 MCG (1999) CapsuleIndications: takes at lunch Take 2,000 Units by mouth daily. Indications: takes at lunch 0 Active Fluticasone Propionate 50 MCG/ACT Nasal SuspensionIndicatio ns:Chronic rhinitis Administer 2 Sprays into each nostril daily. 3 units for 3 months 48 g 3 05/31/2021 Active Triamcinolone Acetonide 0.1 % External Cream (Aristocort)Indicat ions:Dermatitis Apply to rash two times a day x 2 weeks then stop. 15 g 0 04/02/2022 Active Metoprolol Succinate ER 25 MG Oral Tablet Extended Release 24 Hour (toPROL XL)Indications:Palp itations,HTN, goal below 150/90 TAKE 1 TABLET BY MOUTH DAILY TAKE AT LUNCH TIME 90 Tablet 3 07/28/2022 Active Famotidine 20 MG Oral Tablet (Pepcid)Indications :Gastroesophageal reflux disease, unspecified whether esophagitis present Take 1 Tablet by mouth in the morning and 1 Tablet before bedtime. 180 Tablet 1 01/02/2023 Active Gabapentin 400 MG Oral Capsule (Neurontin)Indicati ons:Spinal stenosis, lumbar region, without neurogenic claudication Take 1 Capsule by mouth in the morning and 1 Capsule at noon and 1 Capsule before bedtime. 270 Capsule 3 01/03/2023 Active Pantoprazole Sodium 40 MG Oral Tablet Delayed Release (Protonix) TAKE 1 TABLET BY MOUTH EVERY DAY 90 Tablet 3 01/23/2023 Active Rosuvastatin Calcium 5 MG Oral Tablet (Crestor)Indication s:Dyslipidemia, goal LDL below 100 TAKE 1 TABLET BY MOUTH EVERY DAY 90 Tablet 3 01/23/2023 Active Lisinopril 30 MG Oral Tablet TAKE 1 TABLET BY MOUTH EVERY DAY IN THE MORNING 90 Tablet 3 01/23/2023 Active hydroCHLOROthiazide 25 MG Oral Tablet (Hydrodiuril)Indica tions:HTN, goal below 150/90 Take 0.5 Tablets by mouth in the morning. HOLD MEDICATION FOR NOW-01/26/23. 90 Tablet 3 01/26/2023 Active Levothyroxine Sodium 75 MCG Oral Tablet (Levoxyl)Indication s:Hypothyroidism, unspecified type (at least 30 min prior to breakfast or other meds) 90 Tablet 1 01/28/2023 Active amLODIPine Besylate 2.5 MG Oral Tablet (Norvasc)Indication s:HTN, goal below 150/90 Take 1 Tablet by mouth in the morning. 90 Tablet 2 02/02/2023 Active fentaNYL 50 MCG/HR Transdermal Patch 72 Hour (Duragesic)Indicati ons:Spinal stenosis, lumbar region, without neurogenic claudication Place 1 Patch topically on the skin every 3 days. Apply for pain 10 Patch 0 07/07/2023 Active Hospital, Clinic, or Other Facility Administered Medication Ordered Dose Route Frequency Start Date End Date Status lidocaine 1% 1 mL - triamcinolone acetonide 40 mg/mL 1 mL inj 2 mLIndications:Nontraumatic complete tear of right rotator cuff 2 mL IJ ONCE 07/28/2023 07/28/2023 Ended documented as of this encounter (statuses as of 07/28/2023) Active Problems Problem Noted Date Diagnosed Date [...] as of this encounter (statuses as of 07/28/2023) Resolved Problems Problem Noted Date Diagnosed Date [...] 04/04/2003 09/05/2014 SPINAL STENOSIS-LUMBAR 11/22/200209/05 DISC DIS [id number] 11/22/200201/2010 PAIN IN LIMB, RIGHT LEG 11/22/200208/10 AC MAXILLARY SINUSITIS, RIGHT 09/07/2002 01/19/2006 ACUTE URI NOS 09/07/2002 01/19/2006 Nausea 09/07/2002 01/19/2006 Overview: ICD-10 update of inactive term PULSATILE TINNITUS 09/07/2002 5 BENIGN HYPERTENSION 08/23/2002 03/26/20 09 DISC DIS [id number] 07/28/200201/09 DIVERTICULOSIS OF COLON 07/28/200208/10 Overview: Colonoscopy 03/19/06--repeat 10 years Chest pain 03/19/2010 Esophageal reflux 09/05/2014 Mixed dyslipidemia 9 Overview: Per Lipid Taxonomy. Irritable bowel syndrome Hypothyroidism 12/01/2011 Carpal tunnel syndrome 09/05 HTN, goal below 140/90 03/06 HTN, goal below 150/90 03/13 HTN, goal below 150/90 06/06 documented as of this encounter (statuses as of 07/28/2023) Immunizations Name Administration Dates Next Due Pneumococcal [...] on file documented as of this encounter Progress Notes * Maria Fernanda Kennedy MD - 07/28/2023 2:14 PM EDT .hfsJannetteariana Downing is a 87 year old female who presents for follow up hip pain/injury to [facility] Sports Medicine. Alexia Freeman Palomojuan is here unaccompanied History: Chief Complaint Patient presents with Follow Up Left hip NEW PATIENT Right shoulder Nursing Notes: Maya Tan, MED ASSIST 07/28/23 1334 Signed Patient presents today for left hip. Previously injected 06/22/2023, which states it did not help her at all. When she walks, pain is 8/10. Patient is also here for right shoulder pain. Limited ROM. Patient presents today for follow up of left hip and new problem right shoulder. I have been following her left hip issues since mid 2022 and she underwent ultrasound-guided hip injection 12/09/2022 with a about 2 months of relief. She had a return of pain a few months ago so a repeat injection wasperformed 06/22/2023. Unfortunately, she reports today that she did not get that much relief from that. Has groin pain and buttock pain. In regards to her right shoulder, has had pain now for several months. Pain is worse in the front of the shoulder and occasionally radiates to around the back of the shoulder but does not radiate down the arm. There is no associated numbness or tingling. Pain is worse when reaching up overhead. No prior injuries or surgeries. Review of systems: All others negative except those noted above in HPI. Physical Exam There were no vitals filed for this visit. Estimated body mass index is 25.85 kg/m as calculated from the following: Height as of 07/27/23: 1.499 m (4' 11"). Weight as of 07/27/23: 58.1 kg (128 lb). General: generally well-nourished and in no acute distress HEENT: normocephalic, atraumatic, sclera anicteric. Psych: mood and affect normal , cooperative Card: Peripheral pulses: normal in affected extremity (s) Resp: equal chest rise, non-tachypneic, non-labored breathing Skin: no rash, normal Neuro: Sensation: normal on affected extremity (s) MSK: Gait/station/stance: Mildly antalgic with the use of a cane Hip Exam No obvious deformity, no redness, swelling, warmth, bruising, abrasion. Mild tenderness at greater trochanter. Pain at end range internal and external rotation. Positive YASH and FADIR. Shoulder exam: No obvious deformity, redness, swelling, warmth, bruising, or abrasions on inspection. She was tenderness to palpation over the anterior shoulder seemingly over the biceps tendon. Slight subacromial tenderness as well. No AC joint tenderness. Has a painful arc but otherwise fairly preserved and symmetric range of motion to 160 of forward flexion, 45 of external rotation, and internal rotationto lumbar spine with negative lift-off. Strength is 5/5 to internal rotation, 4/5 to external rotation and empty can. She was a positive Marquez and Neer's. Positive Speed's. Radiology: The following images were personally reviewed Four view x-ray of the right shoulder reveals mild glenohumeral joint and moderate AC joint osteoarthritis - per my interpretation. Awaiting formal radiology interpretation. Assessment and Plan: ICD-10-CM 1. Nontraumatic complete tear of right rotator cuff M75.121 2. Chronic right shoulder pain M25.511 G89.29 3. Primary osteoarthritis of one hip, left M16.12 Very pleasant 87-year-old female seen today for follow up of left hip pain and new problem right shoulder pain. Left hip pain remains consistent mostly with osteoarthritis, but on exam today has somemild findings of greater trochanteric pain syndrome as well. Recommend that she reestablish with physical therapy as she never truly completed a course last time due to car trouble. New referral was placed today. In addition, as she was had diminished relief from repeat steroid injections discussedmeeting with a surgeon to discuss hip replacement. Referral placed. In regards to her right shoulder, suspect that the majority of her issues are due to chronic rotator cuff tears. A limited musculoskeletal ultrasound was performed of the right shoulder just for educational purposes only and revealed complete tears of the supraspinatus with difficulty identifying the stump pointing towards chronic retracted tears. Discussed treatment options including injections,physical therapy, and surgical referral. She was interested in a trial of physical therapy and injections today. See procedure note below. She will message me through the portal or give the office a call update me on her symptoms in a few weeks. Procedure note: Subacromial injection on RIGHT Time out: Prior to injection, a time out was called to confirm the administration of appropriate medicine, patient name, procedure and confirm to the best of our ability and knowledge the presence of any necessary risks and benefits. Patient verbalizes understanding. Posteriolateral approach used. Sterile techinique applied. Skin sterilized with chlorhexidine and cleaned with alcohol swab. Subacromial bursa injected using 1.5 inch, 25 gauge needle. Injected with 1 ml 1% Lidocaine + 1 ml of Triamcinolone acetonide 40 mg/mL. Patient tolerated procedure with no sig nificant bleeding or adverse reaction. Patient instructed to call or return to clinic for fever or warmth and redness at injection site for potential infection. Patient also advised as to potential for steroid flare reaction including increased pain and redness at injection site which should be treated with ice and resolve within 24 hours. MD Maria Fernanda Shrestha MD Primary Care Sports Medicine [facility] Orthopaedics [facility] [address] [facility] [place] [address] documented in this encounter Nursing Notes * Maya Tan MED ASSIST - 07/28/2023 1:32 PM EDT Patient presents today for left hip. Previously injected 06/22/2023, which states it did not help her at all. When she walks, pain is 8/10. Patient is also here for right shoulder pain. Limited ROM. documented in this encounter Plan of Treatment Upcoming Encounters Date Type Department Care Team (Late st Contact Info) Description 09/24/2023 3:30 PM EDT Office Visit Orthopaedics [facility] [address] [facility] [place] [address] Aris Bejarano, [address] [place] [address] 01/04/2024 3:30 PM EDT Office Visit Cardiology, [facility] [address] [place] [address] Lyla Qureshi PA-C [address] [place] [address] [place] [address] 05/09/2024 3:00 PM EST Office Visit Nephrology [address] [place] [address] Amy Montero MD [address] [facility] [place] [address] Pending Results Name Type Priority Associated Diagnoses Date /Time XR SHOULDER, 2 OR MORE VIEWS Medical Imaging Routine Chronic right shoulder pain 07/28/2023 1:46 PM EDT Scheduled Referrals Name Type Priority Associated Diagnoses Orde r Schedule ORTHOPAEDICS REFERRAL OP Referral Within 10 days (routine) Primary osteoarthritis of one hip, left Ordered: 07/28/2023 PHYSICAL THERAPY REFERRAL OP Referral Within 10 days (routine) Nontraumatic complete tear of right rotator cuff Chronic right shoulder pain Primary osteoarthritis of one hip, left Ordered: 07/28/2023 Health Maintenance Due Date Last Done Comments DXA Scan 10/08/2018 10/08/2016, 08/09, 02/24/2012, Additional history exists Zoster Vaccines (3 of 3) 12/20/2018 10/25/2018, 01/2012 DTaP,Tdap,and Td Vaccines (2 - Td or Tdap) 12/11/2022 12/11/2012, 02/09/2000 Mammogram 12/20/2022 12/20/2021, 07/09, 07/22/2019, Additional history exists COVID-19 Vaccine (2022- season) 2023 09/06/2020, 08/16/2020 Depression Screening 06/23/2023 06/23/2022, 02/20/2017, 03/10/2015 (Discussed) Albumin/Creatinine Ratio 07/25/2023 023, 03/19/2020, 08/31/2017, Additional history exists CKD HGB USE SMARTSET 84626 06/08/202406/08, 07/24/2022, 03/19/2020, Additional history exists CKD PHOS USE SMARTSET 34094 06/08/202405/12, 07/24/2022, 03/19/2020, Additional history exists TSH 06/08/2024 06/08/2023, 07/09, 06/12/2021, Additional history exists *BISPHONATE OR OTHER ACCEPTABLE MEDICATION NEEDED FOR OSTEOPOROSIS (REFER TO SMARTSET #1146) Addressed 03/10/2015 (Declined) Overridden w ith the intention of not completing the topic Pneumococcal Vaccine: 65+ Years Completed 03/10/2015, 02/02/2004 VITAMIN D LEVEL ONCE IN A LIFETIME-USE SMARTSET# [id number] Completed 07/24/2022, 03/19/2020, 05/13/2019, Additional history exists [...] as of this encounter Visit Diagnoses Diagnosis Nontraumatic complete tear of right rotator cuff- Primary Chronic right shoulder pain Pain in joint, shoulder region Primary osteoarthritis of one hip, left documented in this encounter Administered Medications Inactive Administered Medications - up to 3 most recent administrations Medication Order MAR Action Action Date Dose Rate Site lidocaine 1% 1 mL - triamcinolone acetonide 40 mg/mL 1 mL inj 2 mL 2 mL, Injection, ONCE, On Thu07/28/23 at 1445, For 1 dose, Lidocaine 1% 1mL Triamcinolone Acetonide 40 mg/mL 1 mL (Final concentration = 20 mg/mL) REFRIGERATE and SHAKE WELL Given 07/28/2023 2:13 PM EDT 2 mL Shoulder Right documented in this encounter Advance Directives Latest Code Status on File Code Status Date Activated Date Inactivated Comments None 08/28/2003 3:18 PM 08/28/2003 3:18 PM Care Teams Pressurised Container Filler Relationship Specialty Start Date End Date Milton Moreno MD [address], [place] [id number] PCP - General Family Medicine 12/07/17 documented as of this encounter
--- OUTSIDE RECORDS SUMMARY | 2023-08-06 11:18 | External Medical Summary | Summary of Care ---
Author Name Unknown Organization [facility] Address [address] [facility] [place] [address] Phone [phone] Care Team Providers Care Regional Office Coordinator Name Role Phone Milton Moreno MD Primary Care Provider [phone] Encounter Details Date Type Department Care Team (Late st Contact Info) Description 07/26/2023 Patient Reported Data Patient Survey Ortho [facility] Allergies Active Allergy Reactions Criticality Noted Date Comments Ibandronate Sodium 02/04/2010 Domperidone 04/16/2009 Side effects- bad, vivid dreams, but still taking it Penicillin G 08/25/1997 rash Shellfish-Derived Products 2 Sulfa Antibiotics 08/25/1997 Does not remember documented as of this encounter (statuses as of 07/26/2023) Medications Medication Sig Dispensed Refills Start Date [...] then stop. 15 g 0 04/02/2022 Active Additional Information Patient not taking.Reported on 01/23/2023 Metoprolol Succinate ER 25 MG Oral Tablet [...] for pain 10 Patch 0 07/07/2023 Active documented as of this encounter (statuses as of 07/26/2023) Active Problems Problem Noted Date Diagnosed Date [...] as of this encounter (statuses as of 07/26/2023) Resolved Problems Problem Noted Date Diagnosed Date [...] 04/04/2003 09/05/2014 SPINAL STENOSIS-LUMBAR 11/22/200209/05 DISC DIS [id number] 11/22/2002 11/0 01/2010 PAIN IN LIMB, RIGHT LEG 11/22/200208/10 AC MAXILLARY SINUSITIS, RIGHT 09/07/2002 01/19/2006 ACUTE URI NOS 09/07/2002 01/19/2006 Nausea 09/07/2002 01/19/2006 Overview: ICD-10 update of inactive term PULSATILE TINNITUS 09/07/2002 5 BENIGN HYPERTENSION 08/23/2002 03/26/20 09 DISC DIS [id number] 07/28/200201/09 DIVERTICULOSIS OF COLON 07/28/200208/10 Overview: Colonoscopy 03/19/06--repeat 10 years Chest pain 03/19/2010 Esophageal reflux 09/05/2014 Mixed dyslipidemia 9 Overview: Per Lipid Taxonomy. Irritable bowel syndrome Hypothyroidism 12/01/2011 Carpal tunnel syndrome 09/05 HTN, goal below 140/90 03/06 HTN, goal below 150/90 03/13 HTN, goal below 150/90 06/06 documented as of this encounter (statuses as of 07/26/2023) Immunizations Name Administration Dates Next Due Pneumococcal [...] on file documented as of this encounter Plan of Treatment Upcoming Encounters Date Type Department Care Team (Late st Contact Info) Description 07/27/2023 2:30 PM EDT Office Visit Nephrology [address] [place] [address] Juliette Benjamin PA-C [address] [place] [address] 07/28/2023 1:30 PM EDT Office Visit Orthopaedics [facility] [address] [place] [address] Maria Fernanda Kennedy MD [address] [place] [address] 01/04/2024 3:30 PM EDT Office Visit Cardiology, [facility] 132 [facility] [place] [address] Lyla Qureshi PA-C [address] [place] [address] Health Maintenance Due Date Last Done Comments DXA Scan 10/08/2018 10/08/2016, 08/09, 02/24/2012, Additional history exists Zoster Vaccines (3 of 3) 12/20/2018 10/25/2018, 01/2012 DTaP,Tdap,and Td Vaccines (2 - Td or Tdap) 12/11/2022 12/11/2012, 02/09/2000 Mammogram 12/20/2022 12/20/2021, 07/09, 07/22/2019, Additional history exists COVID-19 Vaccine ( - 2022- season) 2023 09/06/2020, 08/16/2020 Depression Screening 06/23/2023 06/23/2022, 02/20/2017, 03/10/2015 (Discussed) Albumin/Creatinine Ratio 07/25/2023 023, 03/19/2020, 08/31/2017, Additional history exists CKD HGB USE SMARTSET 50933 06/08/202406/08, 07/24/2022, 03/19/2020, Additional history exists CKD PHOS USE SMARTSET 02064 06/08/202405/12, 07/24/2022, 03/19/2020, Additional history exists TSH 06/08/2024 06/08/2023, 07/09, 06/12/2021, Additional history exists *BISPHONATE OR OTHER ACCEPTABLE MEDICATION NEEDED FOR OSTEOPOROSIS (REFER TO SMARTSET #1146) Addressed 03/10/2015 (Declined) Overridden w ith the intention of not completing the topic Pneumococcal Vaccine: 65+ Years Completed 03/10/2015, 02/02/2004 VITAMIN D LEVEL ONCE IN A LIFETIME-USE SMARTSET# [id number] Completed 07/24/2022, 03/19/2020, 05/13/2019, Additional history exists [...] Not on filedocumented as of this encounter Advance Directives Latest Code Status on File Code Status Date Activated Date Inactivated Comments None 08/28/2003 3:18 PM 08/28/2003 3:18 PM Care Teams Regional Office Coordinator Relationship Specialty Start Date End Date Milton Moreno MD [address] [place] [address] PCP - General Family Medicine 12/07/17 documented as of this encounter
--- OUTSIDE RECORDS SUMMARY | 2023-08-06 11:18 | External Medical Summary | Summary of Care ---
Author Name Unknown Organization [facility] Address [address] [facility] [place] [address] Phone [phone] Care Team Providers Care Presetter Operator Name Role Phone Milton Moreno MD Primary Care Provider [phone] Encounter Details Date Type Department Care Team [...] 04/04/2003 09/05/2014 SPINAL STENOSIS-LUMBAR 11/22/200209/05 DISC DIS [id number] 11/22/2002 11/0 01/2010 PAIN IN LIMB, RIGHT LEG 11/22/200208/10 AC MAXILLARY SINUSITIS, RIGHT 09/07/2002 01/19/2006 ACUTE URI NOS 09/07/2002 01/19/2006 Nausea 09/07/2002 01/19/2006 Overview: ICD-10 update of inactive term PULSATILE TINNITUS 09/07/2002 5 BENIGN HYPERTENSION 08/23/2002 03/26/20 09 DISC DIS [id number] 07/28/200201/09 DIVERTICULOSIS OF COLON 07/28/200208/10 Overview: Colonoscopy [...] 07/27/2023 2:30 PM EDT Office Visit Nephrology [address] [place] [address] Juliette Benjamin PA-C [address] [place] [address] 07/28/2023 1:30 PM EDT Office Visit Orthopaedics [facility] [address] [place] [address] Maria Fernanda Kennedy MD [address] [place] [address] 01/04/2024 3:30 PM EDT Office Visit Cardiology, [facility] 132 [facility] [place] [address] Lyla Qureshi PA-C [address] [place] [address] Health Maintenance Due Date Last Done Comments [...] Additional history exists CKD HGB USE SMARTSET 31687 06/08/202406/08, 07/24/2022, 03/19/2020, Additional history exists CKD PHOS USE SMARTSET 66529 06/08/202405/12, 07/24/2022, 03/19/2020, Additional history exists TSH 06/08/2024 06/08/2023, 07/09, 06/12/2021, Additional history exists *BISPHONATE OR OTHER ACCEPTABLE MEDICATION NEEDED FOR OSTEOPOROSIS (REFER TO SMARTSET #1146) Addressed 03/10/2015 (Declined) Overridden w ith the intention of not completing the topic Pneumococcal Vaccine: 65+ Years Completed 03/10/2015, 02/02/2004 VITAMIN D LEVEL ONCE IN A LIFETIME-USE SMARTSET# 32375 Completed 07/24/2022, 03/19/2020, 05/13/2019, Additional history exists [...] 3:18 PM 08/28/2003 3:18 PM Care Teams Presetter Operator Relationship Specialty Start Date End Date Milton Moreno MD [address] [place] [address] PCP - General Family Medicine 12/07/17 documented as of this encounter
--- OUTSIDE RECORDS SUMMARY | 2023-08-06 11:18 | External Medical Summary | Summary of Care ---
Author Name Unknown Organization [facility] Address [address] [facility] [place] [address] Phone [phone] Care Team Providers Care Insurance Claims Adjuster Name Role Phone Milton Moreno MD Primary Care Provider [phone] Encounter Details Date Type Department Care Team [...] 04/04/2003 09/05/2014 SPINAL STENOSIS-LUMBAR 11/22/200209/05 DISC DIS LLA-SOL-CJNMYM 11/22/2002 11/0 01/2010 PAIN IN LIMB, RIGHT LEG 11/22/200208/10 AC MAXILLARY SINUSITIS, RIGHT 09/07/2002 01/19/2006 ACUTE URI NOS 09/07/2002 01/19/2006 Nausea 09/07/2002 01/19/2006 Overview: ICD-10 update of inactive term PULSATILE TINNITUS 09/07/2002 5 BENIGN HYPERTENSION 08/23/2002 03/26/20 09 DISC DIS IHX-TRP-HXXRPN 07/28/200201/09 DIVERTICULOSIS OF COLON 07/28/200208/10 Overview: Colonoscopy [...] 07/27/2023 2:30 PM EDT Office Visit Nephrology [address] [place] [address] Juliette Benjamin PA-C [address] [place] [address] 07/28/2023 1:30 PM EDT Office Visit Orthopaedics [facility] [address] [place] [address] Maria Fernanda Kennedy MD [address] [place] [address] 01/04/2024 3:30 PM EDT Office Visit Cardiology, [facility] [address] [facility] [place] [address] Lyla Qureshi PA-C [address] [place] [address] Health Maintenance Due Date Last Done Comments [...] Additional history exists CKD HGB USE SMARTSET 91314 06/08/202406/08, 07/24/2022, 03/19/2020, Additional history exists CKD PHOS USE SMARTSET 54208 06/08/202405/12, 07/24/2022, 03/19/2020, Additional history exists TSH 06/08/2024 06/08/2023, 07/09, 06/12/2021, Additional history exists *BISPHONATE OR OTHER ACCEPTABLE MEDICATION NEEDED FOR OSTEOPOROSIS (REFER TO SMARTSET #1146) Addressed 03/10/2015 (Declined) Overridden w ith the intention of not completing the topic Pneumococcal Vaccine: 65+ Years Completed 03/10/2015, 02/02/2004 VITAMIN D LEVEL ONCE IN A LIFETIME-USE SMARTSET# 44814 Completed 07/24/2022, 03/19/2020, 05/13/2019, Additional history exists [...] 3:18 PM 08/28/2003 3:18 PM Care Teams Insurance Claims Adjuster Relationship Specialty Start Date End Date Milton Moreno MD [address] [place] [address] PCP - General Family Medicine 12/07/17 documented as of this encounter
--- OUTSIDE RECORDS SUMMARY | 2023-08-06 11:18 | External Medical Summary | Summary of Care ---
Author Name Unknown Organization [facility] Address [address] [facility] [address] Phone [phone] Care Team Providers Care Email Marketing Coordinator Name Role Phone Milton Moreno MD Primary Care Provider [phone] Reason for Visit * Reason Comments Re-Check Encounter Details Date Type Department Care Team (Late st Contact Info) Description 07/27/2023 2:30 PM EDT Office Visit Nephrology [address] [place] [address] ZemaJuliette ortega PA-C [address] [place] [address] Chronic kidney disease, stage 3b (HCC)*; HTN, goal below 140/90; Hyperparathyroidism, secondary renal (HCC) Allergies Active Allergy Reactions Criticality Noted Date Comments Ibandronate Sodium 02/04/2010 Domperidone 04/16/2009 Side effects- bad, vivid dreams, but still taking it Penicillin G 08/25/1997 rash Shellfish-Derived Products 2 Sulfa Antibiotics 08/25/1997 Does not remember documented as of this encounter (statuses as of 07/27/2023) Medications Medication Sig Dispensed Refills Start Date [...] 0 Active Cholecalciferol (VITAMIN D) 50 MCG (1999 UT) CapsuleIndications: takes at lunch Take 2,000 Units [...] as of this encounter (statuses as of 07/27/2023) Active Problems Problem Noted Date Diagnosed Date [...] as of this encounter (statuses as of 07/27/2023) Resolved Problems Problem Noted Date Diagnosed Date [...] 04/04/2003 09/05/2014 SPINAL STENOSIS-LUMBAR 11/22/200209/05 DISC DIS IAT-HJX-FXUZZR 11/22/200201/2010 PAIN IN LIMB, RIGHT LEG 11/22/200208/10 AC MAXILLARY SINUSITIS, RIGHT 09/07/2002 01/19/2006 ACUTE URI NOS 09/07/2002 01/19/2006 Nausea 09/07/2002 01/19/2006 Overview: ICD-10 update of inactive term PULSATILE TINNITUS 09/07/2002 5 BENIGN HYPERTENSION 08/23/2002 03/26/20 09 DISC DIS GYX-CAZ-DFIIGX 07/28/200201/09 DIVERTICULOSIS OF COLON 07/28/200208/10 Overview: Colonoscopy 03/19/06--repeat 10 years Chest pain 03/19/2010 Esophageal reflux 09/05/2014 Mixed dyslipidemia 9 Overview: Per Lipid Taxonomy. Irritable bowel syndrome Hypothyroidism 12/01/2011 Carpal tunnel syndrome 09/05 HTN, goal below 140/90 03/06 HTN, goal below 150/90 03/13 HTN, goal below 150/90 06/06 documented as of this encounter (statuses as of 07/27/2023) Immunizations Name Administration Dates Next Due Pneumococcal [...] on file documented as of this encounter Last Filed Vital Signs Vital Sign Reading Time Taken Comments Blood Pressure 122/70 07/27/2023 2:31 PM EDT Pulse 68 07/27/2023 2:31 PM EDT Temperature - - Respiratory Rate 16 07/27/2023 2:31 PM EDT Oxygen Saturation - - Inhaled Oxygen Concentration - - Weight 58.1 kg (128 lb) 07/27/2023 2:31 PM EDT Height 149.9 cm (4' 11") 07/27/2023 2:31 PM EDT Body Mass Index 25.85 07/27/2023 2:31 PM EDT documented in this encounter Progress Notes * Juliette Benjamin PA-C - 07/27/2023 2:30 PM EDT NEPHROLOGY CLINIC NOTE Nephrology [address] [place] [address] Patient Name: Alexia Downing Patient Active Problem List Diagnosis Code Wedge Deformity - T9 M53.9 Postmenopausal atrophic vaginitis N95.2 Idiopathic scoliosis M41.20 Hypothyroidism E03.9 Vitamin D deficiency E55.9 Spinal stenosis, lumbar region, without neurogenic claudication M48.061 Neuropathy G62.9 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 Dyslipidemia, goal LDL below 100 E78.5 Esophageal reflux K21.9 IBS (irritable bowel syndrome) K58.9 Diverticulosis K57.90 Gastroparesis K31.84 Rhinitis, chronic J31.0 Chronic pain syndrome G89.4 Senile osteoporosis M81.0 Slow transit constipation K59.01 MEDICATION USE AGREEMENT [id number] HTN, goal below 150/90 I10 Palpitations R00.2 Non-rheumatic tricuspid valve insufficiency I36.1 Aortic valve sclerosis I35.8 Non-rheumatic mitral regurgitation I34.0 Hyperparathyroidism, 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 87 year old female presents for f/u of CKD stage G I am meeting her today for the first time. Past Medical history includes htn for over 10 years, hypothyroidism, and palpitations. Also w/ aortic sclerosis and non rheumatic tricuspid valve insufficiency. No tobacco. no NSAIDs. No diabetes. Nomyeloma HTN urgency ER eval reported at 06/2022 OV. 2019: diagnosed with symptomatic gastroparesis. Notes dyspepsia-worsened with caffeine. She is alsoon carafate and protonix for dyspepsia symptoms. Struggles to maintain po fluids >> 16 oz daily water and 16 oz daily coffee. Started using CBD oil on left knee and to help sleep. She says that this has brought a great improvement in her pain control. Still on fentanyl and gabapentin. Supplements include cholecalciferol. . Home blood pressure checks: on occasion upper arm bp cuff validation unknown ? NSAID use: No Tylenol was advised up to 6 daily Herbals/supplements: Vit D, Coenzyme q10 History of stones: No Family history of CKD or ESRD: No Today 07/27/23 Denies any recent hospitalizations, procedures or infections. Cont to drink 16 oz water daily, 16 oz coffee daily. Gets up late AM, feeds dogs, drinks coffee midday; Incontinence continues Still struggling with incontinence reports mainly with drinking water has to wear diapers when she consumes water On questioning patient unsure if this has been worked up in the pass- she reports she has spoke with PCP office before but can not recall the outcome Overall reports feeling except for arthritic pain REVIEW OF SYSTEMS General:+ fatigue Head: No significant headache Respiratory: No wheezing, No shortness of breath Cardiovascular:No chest pain, No palpitations, and No syncope, +Falls last one in the fall time while working in the yard Gastrointestinal: No nausea, vomiting, diarrhea No blood in stools Urinary: No dysuira, No hematuria. +bilaterally flank pain on occasion Musculoskeletal: No edema Skin: No itching All other systems were reviewed and were negative. Current Outpatient Medications Medication Sig Dispense Refill ASPIRIN 81 MG PO TABS Take by mouth. Indications: takes in the evening Coenzyme Q10 (CO Q 10) 10 MG CAPS Take 3 Tabs by mouth daily. Indications: takes at lunch acetaminophen (TYLENOL) 500 MG Tablet Take 2 Tablets by mouth in the morning. Cholecalciferol (VITAMIN D) 50 MCG (2000 UT) Capsule Take 2,000 Units by mouth daily. Indications: takes at lunch Fluticasone Propionate 50 MCG/ACT Nasal Suspension Administer 2 Sprays into each nostril daily. 3 units for 3 months 48 g 3 Triamcinolone Acetonide 0.1 % External Cream (Aristocort) Apply to rash two times a day x 2 weeks then stop. 15 g 0 Metoprolol Succinate ER 25 MG Oral Tablet Extended Release 24 Hour (toPROL XL) TAKE 1 TABLET BY MOUTH DAILY TAKE AT LUNCH TIME 90 Tablet 3 Famotidine 20 MG Oral Tablet (Pepcid) Take 1 Tablet by mouth in the morning and 1 Tablet before bedtime. 180 Tablet 1 Gabapentin 400 MG Oral Capsule (Neurontin) Take 1 Capsule by mouth in the morning and 1 Capsule at noon and 1 Capsule before bedtime. 270 Capsule 3 Pantoprazole Sodium 40 MG Oral Tablet Delayed Release (Protonix) TAKE 1 TABLET BY MOUTH EVERY DAY 90 Tablet 3 Rosuvastatin Calcium 5 MG Oral Tablet (Crestor) TAKE 1 TABLET BY MOUTH EVERY DAY 90 Tablet 3 Lisinopril 30 MG Oral Tablet TAKE 1 TABLET BY MOUTH EVERY DAY IN THE MORNING 90 Tablet 3 hydroCHLOROthiazide 25 MG Oral Tablet (Hydrodiuril) Take 0.5 Tablets by mouth in the morning. HOLD MEDICATION FOR NOW-01/26/23. 90 Tablet 3 Levothyroxine Sodium 75 MCG Oral Tablet (Levoxyl) (at least 30 min prior to breakfast or other meds) 90 Tablet 1 amLODIPine Besylate 2.5 MG Oral Tablet (Norvasc) Take 1 Tablet by mouth in the morning. 90 Tablet 2 fentaNYL 50 MCG/HR Transdermal Patch 72 Hour (Duragesic) Place 1 Patch topically on the skin every 3 days. Apply for pain 10 Patch 0 No current facility-administered medications for this visit. PHYSICAL EXAMINATION Last 4 BP Readings: BP Readings from Last 4 Encounters: 07/27/23 122/70 06/08/23 110/60 02/02/23 130/60 01/23/23 128/62 Last 3 Weights: Wt Readings from Last 3 Encounters: 07/27/23 58.1 kg (128 lb) 06/08/23 56.2 kg (124 lb) 02/02/23 55.3 kg (122 lb) BP 122/70 | Pulse 68 | Resp 16 | Ht 1.499 m (4' 11") | Wt 58.1 kg (128 lb) | BMI 25.85 kg/m | BSA1.56 m Wt Readings from Last 1 Encounters: 07/27/23 58.1 kg (128 lb) General appearance: alert, no apparent distress. Ambulatory with cane HEAD: Normocephalic, No masses, lesions, tenderness Respiratory: clear to auscultation, no rhonchi, no wheezes, and no crackles Heart: regular rate and regular rhythm Abdomen: abdomen soft, non-tender, and no CVA tenderness EXTREMITIES: No edema, No cyanosis or clubbing Skin: skin color, texture, turgor are normal NEURO: alert & oriented x 3 with fluent speech, no focal motor/sensory deficits No tremor Patient is a reliable historian of events LABS: Latest Reference Range & Units 07/24/22 12:57 09/02/22 13:52 01/19/23 15:30 01/23/23 12:54 03/30/23 13:55 06/08/23 15:49 Sodium 135 - 146 mmol/L 142 135 134 (L) 132 (L) 143 140 Potassium 3.5 - 5.1 mmol/L 4.4 4.4 5.2 (H) 5.1 5.1 4.7 Chloride 98 - 107 mmol/L 104 97 (L) 96 (L) 94 (L) 105 102 CO2 22 - 32 mmol/L 28 26 22 27 26 26 BUN 6 - 20 mg/dL 22 (H) 20 39 (H) 25 (H) 19 18 Creatinine 0.5 - 1.0 mg/dL 1.7 (H) 1.8 (H) 2.4 (H) 1.3 (H) 1.4 (H) 1.4 (H) Estimated Glomerular Filtration Rate >=60 mL/min 30 (L) 28 (L) 19 (L) 39 (L) 36 (L) 36 (L) Anion Gap 7 - 15 mmol/L 10 12 16 (H) 11 12 12 Glucose 70 - 120 mg/dL 82 77 98 98 97 90 Calcium 8.4 - 10.2 mg/dL 9.8 9.8 10.3 (H) 10.3 (H) 9.8 9.7 Magnesium 1.5 - 2.6 mg/dL 2.0 2.0 1.9 Phosphorus 2.5 - 4.8 mg/dL 3.6 4.2 (L): Data is abnormally low (H): Data is abnormally high Latest Reference Range & Units 08/31/17 16:29 09/09/18 12:25 03/19/20 11:38 07/24/22 13:10 07/24/22 13:11 Albumin / Creatinine Ratio, Urine <30 mg/g Creat 14 <15 17 Protein/ Creatinine Ratio, Urine <150 mg/g 109 PROTEIN/CREAT RATIO <150 mg/g 138 IMAGING: EXAM: Renal sonogram 07/16/2020 HISTORY: 84-year-old woman with microscopic hematuria TECHNIQUE: Multiple real-time scans were taken. COMPARISON: Renal sonogram 03/30/2012 FINDINGS: The kidneys are normal in position. Right kidney measured 8.9 x 4.1 x 2.8 cm. Left kidney measured 10.5 x 4.5 x 3.3 cm. There are prominent extrarenal pelves bilaterally. There is no hydronephrosis or calculi. Echogenicity of renal parenchyma is within normal limits. There is thinning of the renal parenchyma and renal sinus lipomatosis. Urinary bladder is grossly unremarkable. There is no abdominal aortic aneurysm. IMPRESSION IMPRESSION: 1. Mild atrophy of the kidneys. 2. Prominent extrarenal pelves bilaterally but no hydronephrosis. ASSESSMENT/PLAN: The patient's most recent labs (from 2 months ago) were reviewed and the assessment/plan is as follows: CKD more stable with most recent labs from the fall . Will re-evaluate labs to monitor stability. 2bouts of hyponatremia but stable in the pass 6 months. Volume status good Chronic kidney disease, stage 3b (HCC) (Primary) - URINALYSIS WITH MICROSCOPIC EXAM; Future; Expected date: 11/09/2023 - ALBUMIN / CREATININE RATIO, URINE; Future; Expected date: 11/09/2023 - BASIC METABOLIC PANEL; Future; Expected date: 11/09/2023 HTN, goal below 140/90 Blood pressure with acceptable control- continue amlodipine, lisinopril, metoprolol, and HCTZ Hyperparathyroidism, secondary renal (HCC) Labs placed for assessment - PTH; Future; Expected date: 11/09/2023 - 25-HYDROXY VITAMIN D; Future; Expected date: 11/09/2023 Labs placed for completion in November No changes to medication Discussed fluid intake vs incontinence issues- Pt to discuss with PCP Avoid medicines like aleve, advil, ibuprofen, aspirin more than 81 mg daily and other NSAIDS which are not good for kidney patients. Take only tylenol (acetaminophen) up to 2000 mg daily as needed for pain or as directed by your primary care provider. Reviewed previous status of kidney function and goals of care. All questions were answered. Follow Up: Return for Return with Physician. | For: Return with Physician | Check-out note: 4 months with [facility] in November Juliette Benjamin PA-C Nephrology [address] [place] [address] documented in this encounter Nursing Notes * Raven Norris RN - 07/27/2023 2:31 PM EDT Check up, no concerns documented in this encounter Plan of Treatment Upcoming Encounters Date Type Department Care Team (Late st Contact Info) Description 07/28/2023 1:30 PM EDT Office Visit Orthopaedics [facility] [address] [place] [address] Maria Fernanda Kennedy MD [address] [place] [address] 01/04/2024 3:30 PM EDT Office Visit Cardiology, [facility] [address] [place] [address] Lyla Qureshi PA-C [address] [place] [address] [place] [address] 05/09/2024 3:00 PM EST Office Visit Nephrology [address] [place] [address] Amy Montero MD [address] [facility] [place] [id number] Scheduled Orders Name Type Priority Associated Diagnoses Orde r Schedule URINALYSIS WITH MICROSCOPIC EXAM Lab Routine Chronic kidney disease, stage 3b (HCC) Expected: 11/09/2023, Expires: 07/26/2024 ALBUMIN / CREATININE RATIO, URINE Lab Routine Chronic kidney disease, stage 3b (HCC) Expected: 11/09/2023, Expires: 07/26/2024 BASIC METABOLIC PANEL Lab Routine Chronic kidney disease, stage 3b (HCC) Expected: 11/09/2023, Expires: 07/26/2024 PTH Lab Routine Chronic kidney disease, stage 3b (HCC) Expected: 11/09/2023, Expires: 07/26/2024 25-HYDROXY VITAMIN D Lab Routine Chronic kidney disease, stage 3b (HCC) Expected: 11/09/2023, Expires: 07/26/2024 Health Maintenance Due Date Last Done Comments [...] Additional history exists CKD HGB USE SMARTSET 82180 06/08/202406/08, 07/24/2022, 03/19/2020, Additional history exists CKD PHOS USE SMARTSET 45177 06/08/202405/124, 07/24/2022, 03/19/2020, Additional history exists TSH 06/08/2024 06/08/2023, 07/09, 06/12/2021, Additional history exists *BISPHONATE OR OTHER ACCEPTABLE MEDICATION NEEDED FOR OSTEOPOROSIS (REFER TO SMARTSET #1146) Addressed 03/10/2015 (Declined) Overridden w ith the intention of not completing the topic Pneumococcal Vaccine: 65+ Years Completed 03/10/2015, 02/02/2004 VITAMIN D LEVEL ONCE IN A LIFETIME-USE SMARTSET# 65973 Completed 07/24/2022, 03/19/2020, 05/13/2019, Additional history exists [...] as of this encounter Visit Diagnoses Diagnosis Chronic kidney disease, stage 3b (HCC)- Primary HTN, goal below 140/90 Unspecified essential hypertension Hyperparathyroidism, secondary renal (HCC) Secondary hyperparathyroidism (of renal origin) documented in this encounter Advance Directives Latest Code Status on File Code Status Date Activated Date Inactivated Comments None 08/28/2003 3:18 PM 08/28/2003 3:18 PM Care Teams Email Marketing Coordinator Relationship Specialty Start Date End Date Milton Moreno MD [address] [place] [address] PCP - General Family Medicine 12/07/17 documented as of this encounter
--- OUTSIDE RECORDS SUMMARY | 2023-08-06 11:18 | External Medical Summary | Summary of Care ---
Author Name Unknown Organization [facility] Address [address] [facility] [place] [address] Phone [phone] Care Team Providers Care Nutrition Helper Name Role Phone Milton Moreno MD Primary Care Provider [phone] Reason for Referral * Evaluate & Treat - Unlimited Visits (Within 10 days (routine)) - Authorized Specialty Diagnoses / Procedures Referred By Tam odom Referred To Contact Physical Therapy / Physical Medicine And Rehab Diagnoses Nontraumatic complete tear of right rotator cuff Chronic right shoulder pain Primary osteoarthritis of one hip, left Maria Fernanda Kennedy MD [address] [employer] [place] [address] Referral ID Status Reason Start Date Expiration Date Visits Requested Visits Authorized [id number] Authorized Specialty Services Required 07/28/2023 999 999 Question Answer Referral Priority Within 10 days (routine) Where should this appointment be scheduled? [facility] * Evaluate & Treat - Unlimited Visits (Within 10 days (routine)) - Authorized Specialty Diagnoses / Procedures Referred By Tam odom Referred To Contact Orthopaedic Surgery / Orthopedics Diagnoses Primary osteoarthritis of one hip, left Maria Fernanda Kennedy MD [address] [place] [address] Referral ID Status Reason Start Date Expiration Date Visits Requested Visits Authorized [id number] Authorized Specialty Services Required 07/28/2023 999 999 [...] 07/28/2023 1:30 PM EDT Office Visit Orthopaedics [facility] [address] [place] [address] Maria Fernanda Kennedy MD [address] [place] [address] Nontraumatic complete tear of right rotator cuff*; [...] 04/04/2003 09/05/2014 SPINAL STENOSIS-LUMBAR 11/22/200209/05 DISC DIS UMW-CTY-TRMVZE 11/22/200201/2010 PAIN IN LIMB, RIGHT LEG 11/22/200208/10 AC MAXILLARY SINUSITIS, RIGHT 09/07/2002 01/19/2006 ACUTE URI NOS 09/07/2002 01/19/2006 Nausea 09/07/2002 01/19/2006 Overview: ICD-10 update of inactive term PULSATILE TINNITUS 09/07/2002 5 BENIGN HYPERTENSION 08/23/2002 03/26/20 09 DISC DIS OTY-ADR-ONSNIM 07/28/200201/09 DIVERTICULOSIS OF COLON 07/28/200208/10 Overview: Colonoscopy [...] presents for follow up hip pain/injury to [facility] Sports Medicine. Alexia Freeman Palomojuan is [...] Fernanda Shrestha MD Primary Care Sports Medicine [facility] Orthopaedics [facility] [address] [facility] [place] [address] documented in this encounter Nursing Notes * [...] 09/24/2023 3:30 PM EDT Office Visit Orthopaedics [facility] [address] [facility] [place] [address] Aris Bejarano, [address] [place] [address] 01/04/2024 3:30 PM EDT Office Visit Cardiology, [facility] [address] [place] [address] Lyla Qureshi PA-C [address] [place] [address] [place] [address] 05/09/2024 3:00 PM EST Office Visit Nephrology [address] [place] [address] Amy Montero MD [address] [facility] [place] [place] [address] Pending Results Name Type Priority Associated Diagnoses [...] Additional history exists CKD HGB USE SMARTSET 85601 06/08/202406/08, 07/24/2022, 03/19/2020, Additional history exists CKD PHOS USE SMARTSET 48226 06/08/202405/12, 07/24/2022, 03/19/2020, Additional history exists TSH 06/08/2024 06/08/2023, 07/09, 06/12/2021, Additional history exists *BISPHONATE OR OTHER ACCEPTABLE MEDICATION NEEDED FOR OSTEOPOROSIS (REFER TO SMARTSET #1146) Addressed 03/10/2015 (Declined) Overridden w ith the intention of not completing the topic Pneumococcal Vaccine: 65+ Years Completed 03/10/2015, 02/02/2004 VITAMIN D LEVEL ONCE IN A LIFETIME-USE SMARTSET# 46599 Completed 07/24/2022, 03/19/2020, 05/13/2019, Additional history exists [...] 3:18 PM 08/28/2003 3:18 PM Care Teams Nutrition Helper Relationship Specialty Start Date End Date Milton Moreno MD [address] [place], [place] [id number] PCP - General Family Medicine 12/07/17 documented as of this encounter
--- OUTSIDE RECORDS SUMMARY | 2023-08-06 11:18 | External Medical Summary | Summary of Care ---
Author Name Unknown Organization [facility] Address [address] [facility] [place] [address] Phone [phone] Care Team Providers Care Chronic Disease Epidemiologist Name Role Phone Milton Moreno MD Primary Care Provider [phone] Reason for Visit * Reason Comments eRx-Medication Refill Encounter Details Date Type Department Care Team (Late st Contact Info) Description 07/31/2023 Refill Cardiology, [facility] [address] [place] [address] Nivia Landeros, [address] [place] [address] Palpitations; HTN, goal below 150/90 Allergies Active Allergy Reactions Criticality Noted Date Comments Ibandronate Sodium 02/04/2010 Domperidone 04/16/2009 Side effects- bad, vivid dreams, but still taking it Penicillin G 08/25/1997 rash Shellfish-Derived Products 2 Sulfa Antibiotics 08/25/1997 Does not remember documented as of this encounter (statuses as of 08/04/2023) Medications Medication Sig Dispensed Refills Start Date [...] as of this encounter (statuses as of 08/04/2023) Active Problems Problem Noted Date Diagnosed Date [...] as of this encounter (statuses as of 08/04/2023) Resolved Problems Problem Noted Date Diagnosed Date [...] 04/04/2003 09/05/2014 SPINAL STENOSIS-LUMBAR 11/22/200209/05 DISC DIS [id number]-NPAQDP 11/22/200201/2010 PAIN IN LIMB, RIGHT LEG 11/22/200208/10 AC MAXILLARY SINUSITIS, RIGHT 09/07/2002 01/19/2006 ACUTE URI NOS 09/07/2002 01/19/2006 Nausea 09/07/2002 01/19/2006 Overview: ICD-10 update of inactive term PULSATILE TINNITUS 09/07/200209/05/ 5 BENIGN HYPERTENSION 08/23/2002 03/26/20 09 DISC DIS FUX-YUE-TFARFG 07/28/200201/09 DIVERTICULOSIS OF COLON 07/28/200208/10 Overview: Colonoscopy 03/19/06--repeat 10 years Chest pain 03/19/2010 Esophageal reflux 09/05/2014 Mixed dyslipidemia 9 Overview: Per Lipid Taxonomy. Irritable bowel syndrome Hypothyroidism 12/01/2011 Carpal tunnel syndrome 09/05 HTN, goal below 140/90 03/06 HTN, goal below 150/90 03/13 HTN, goal below 150/90 06/06 documented as of this encounter (statuses as of 08/04/2023) Immunizations Name Administration Dates Next Due Pneumococcal Conjugate Vacc, 13 Valent (Prevnar) 03/10/2015 Pneumococcal Polysaccharide PPV23 (Pneumovax) 02/02/2004 Season Influenza, Quad, PF, Adjuvanted, 65+ Yrs, IM (FLUAD) 03/02/2020 Seasonal Influenza, PF, 6 M & above, IM , (FluLaval or Fluzone) 01/24/2019,02/09/2018,02/20/2017 Seasonal Influenza, Quadriva lent Hd (Fluzone Hd) 03/30/2023,03/15/2022,03/18/2021 Seasonal Influenza, Quadriva lent, No Preserve, IM 03/07/2016,03/10/2015 Seasonal Influenza, Split, I IV3, With Preserve, Inj 03/06/2014,01/25/2013,03/03/2012,02/10,03/28/2010,02/05/2009,05/09/2008 ,03/30/2007,03/06/2005,02/28/2004,03/12 TD - Tetanus/Diptheria (ADULT) 02/09/2000 TDAP (age 10 and older)(Boostrix) 12/11/2012 Varicella [...] encounter Miscellaneous Notes * Telephone Encounter - Pina Robbins CPhT - 08/04/2023 1:01 PM EDT Pt calling to request metoprolol. Informed pt that RX is available at their pharmacy. Pt verbalizedunderstanding and stated they will check with their pharmacy regarding this medication. Thank you, Pina Robbins CPhT-[facility] Resistor Inspector Application Penetration Tester [facility] ([facility]) (formerly Telepharmacy) 08/04/2023,1:01 PM * Telephone Encounter - Nivia Landeros DO - 07/31/2023 11:47 AM EDTSigned Prescriptions: Disp Refills Metoprolol Succinate ER 25 MG Oral Tablet *90 Tab*3 Sig: TAKE 1 TABLET BY MOUTH DAILY TAKE AT LUNCH TIME Authorizing Provider: NIVIA LANDEROS * Telephone Encounter - Bushra Beaver CMA - 07/31/2023 9:44 AM EDTPending Prescriptions: Disp Refills Metoprolol Succinate ER 25 MG Oral Tablet *90 Tab*3 Sig: TAKE 1 TABLET BY MOUTH DAILY TAKE AT LUNCH TIME * Telephone Encounter - Bushra Beaver CMA - 07/31/2023 9:43 AM EDT Did you pend patient's preferred pharmacy and medication before forwarding?yes Pharmacy: [id number] Pending Prescriptions: Disp Refills Metoprolol Succinate ER [...] 09/24/2023 3:30 PM EDT Office Visit Orthopaedics [facility] [address] [facility] [place] [address] Aris Bejarano, [address] [place] [address] 01/04/2024 3:30 PM EDT Office Visit Cardiology, [facility] [address] [facility] [place] [address] Lyla Qureshi PA-C [address] [facility] [place] [id number] 05/09/2024 3:00 PM EST Office Visit Nephrology [address] [place] [address] Amy Montero MD [address] [place] [address] Health Maintenance Due Date Last Done Comments DXA Scan 10/08/2018 10/08/2016, 08/09, 02/24/2012, Additional history exists Zoster Vaccines (3 of 3) 12/20/2018 10/25/2018, 01/2012 DTaP,Tdap,and Td Vaccines (2 - Td or Tdap) 12/11/2022 12/11/2012, 02/09/2000 Mammogram 12/20/2022 12/20/2021, 07/09, 07/22/2019, Additional history exists COVID-19 Vaccine ( season) 2023 09/06/2020, 08/16/2020 Depression Screening 06/23/2023 06/23/2022, 02/20/2017, 03/10/2015 (Discussed) Albumin/Creatinine Ratio 07/25/2023 023, 03/19/2020, 08/31/2017, Additional history exists CKD HGB USE SMARTSET 41389 06/08/202406/08, 07/24/2022, 03/19/2020, Additional history exists CKD PHOS USE SMARTSET 47637 06/08/202405/12, 07/24/2022, 03/19/2020, Additional history exists TSH 06/08/2024 06/08/2023, 07/09, 06/12/2021, Additional history exists *BISPHONATE OR OTHER ACCEPTABLE MEDICATION NEEDED FOR OSTEOPOROSIS (REFER TO SMARTSET #1146) Addressed 03/10/2015 (Declined) Overridden w ith the intention of not completing the topic Pneumococcal Vaccine: 65+ Years Completed 03/10/2015, 02/02/2004 VITAMIN D LEVEL ONCE IN A LIFETIME-USE SMARTSET# 14065 Completed 07/24/2022, 03/19/2020, 05/13/2019, Additional history exists [...] 3:18 PM 08/28/2003 3:18 PM Care Teams Chronic Disease Epidemiologist Relationship Specialty Start Date End Date Milton Moreno MD [address] [place] [address] PCP - General Family Medicine 12/07/17 documented as of this encounter
--- OUTSIDE RECORDS SUMMARY | 2023-08-06 11:19 | External Medical Summary | Summary of Care ---
Author Name Unknown Organization [facility] Address [address] [facility] [place] [address] Phone [phone] Care Team Providers Care Animal Husbandry Technician Name Role Phone Milton Moreno MD Primary Care Provider [phone] Encounter Details Date Type Department Care Team (Late st Contact Info) Description 07/21/2023 Patient Reported Data Patient Survey Ortho [facility]BERD Allergies Active Allergy Reactions Criticality Noted Date Comments Ibandronate Sodium 02/04/2010 Domperidone 04/16/2009 Side effects- bad, vivid dreams, but still taking it Penicillin G 08/25/1997 rash Shellfish-Derived Products 2 Sulfa Antibiotics 08/25/1997 Does not remember documented as of this encounter (statuses as of 07/21/2023) Medications Medication Sig Dispensed Refills Start Date [...] as of this encounter (statuses as of 07/21/2023) Active Problems Problem Noted Date Diagnosed Date [...] as of this encounter (statuses as of 07/21/2023) Resolved Problems Problem Noted Date Diagnosed Date [...] 04/04/2003 09/05/2014 SPINAL STENOSIS-LUMBAR 11/22/200209/05 DISC DIS SZO-TGF-PPSTFI 11/22/2002 11/0 01/2010 PAIN IN LIMB, RIGHT LEG 11/22/200208/10 AC MAXILLARY SINUSITIS, RIGHT 09/07/2002 01/19/2006 ACUTE URI NOS 09/07/2002 01/19/2006 Nausea 09/07/2002 01/19/2006 Overview: ICD-10 update of inactive term PULSATILE TINNITUS 09/07/2002 5 BENIGN HYPERTENSION 08/23/2002 03/26/20 09 DISC DIS SZQ-TDQ-MGILWB 07/28/200201/09 DIVERTICULOSIS OF COLON 07/28/200208/10 Overview: Colonoscopy 03/19/06--repeat 10 years Chest pain 03/19/2010 Esophageal reflux 09/05/2014 Mixed dyslipidemia 9 Overview: Per Lipid Taxonomy. Irritable bowel syndrome Hypothyroidism 12/01/2011 Carpal tunnel syndrome 09/05 HTN, goal below 140/90 03/06 HTN, goal below 150/90 03/13 HTN, goal below 150/90 06/06 documented as of this encounter (statuses as of 07/21/2023) Immunizations Name Administration Dates Next Due Pneumococcal [...] 07/27/2023 2:30 PM EDT Office Visit Nephrology [address] [place] [address] Juliette Benjamin PA-C [address] [place] [address] 07/28/2023 1:30 PM EDT Office Visit Orthopaedics [facility] [address] [place] [address] Maria Fernanda Kennedy MD [address] [place] [address] 01/04/2024 3:30 PM EDT Office Visit Cardiology, [facility] [address] [facility] [place] [address] Lyla Qureshi PA-C [address] [place] [address] Health Maintenance Due Date Last Done Comments [...] Additional history exists CKD HGB USE SMARTSET 76511 06/08/202406/08, 07/24/2022, 03/19/2020, Additional history exists CKD PHOS USE SMARTSET 67292 06/08/202405/12, 07/24/2022, 03/19/2020, Additional history exists TSH 06/08/2024 06/08/2023, 07/09, 06/12/2021, Additional history exists *BISPHONATE OR OTHER ACCEPTABLE MEDICATION NEEDED FOR OSTEOPOROSIS (REFER TO SMARTSET #1146) Addressed 03/10/2015 (Declined) Overridden w ith the intention of not completing the topic Pneumococcal Vaccine: 65+ Years Completed 03/10/2015, 02/02/2004 VITAMIN D LEVEL ONCE IN A LIFETIME-USE SMARTSET# 93402 Completed 07/24/2022, 03/19/2020, 05/13/2019, Additional history exists [...] 3:18 PM 08/28/2003 3:18 PM Care Teams Animal Husbandry Technician Relationship Specialty Start Date End Date Milton Moreno MD [address] [place] [address] PCP - General Family Medicine 12/07/17 documented as of this encounter
--- OUTSIDE RECORDS SUMMARY | 2023-08-06 11:19 | External Medical Summary | Summary of Care ---
Author Name Unknown Organization [facility] Address [address] [facility] [place] [address] Phone [phone] Care Team Providers Care Billboard Erector Name Role Phone Milton Moreno MD Primary Care Provider [phone] Encounter Details Date Type Department Care Team [...] 04/04/2003 09/05/2014 SPINAL STENOSIS-LUMBAR 11/22/200209/05 DISC DIS ZZW-PNX-AFJSXJ 11/22/2002 11/0 01/2010 PAIN IN LIMB, RIGHT LEG 11/22/200208/10 AC MAXILLARY SINUSITIS, RIGHT 09/07/2002 01/19/2006 ACUTE URI NOS 09/07/2002 01/19/2006 Nausea 09/07/2002 01/19/2006 Overview: ICD-10 update of inactive term PULSATILE TINNITUS 09/07/2002 5 BENIGN HYPERTENSION 08/23/2002 03/26/20 09 DISC DIS WSW-UOW-DZDXHD 07/28/200201/09 DIVERTICULOSIS OF COLON 07/28/200208/10 Overview: Colonoscopy [...] 07/27/2023 2:30 PM EDT Office Visit Nephrology [address] [place] [address] Juliette Benjamin PA-C [address] [place] [address] 07/28/2023 1:30 PM EDT Office Visit Orthopaedics [facility] [address] [place] [address] Maria Fernanda Kennedy MD [address] [place] [address] 01/04/2024 3:30 PM EDT Office Visit Cardiology, [facility] [address] [facility] [place] [address] Lyla Qureshi PA-C [address] [place] [address] Health Maintenance Due Date Last Done Comments [...] Additional history exists CKD HGB USE SMARTSET 58691 06/08/202406/08, 07/24/2022, 03/19/2020, Additional history exists CKD PHOS USE SMARTSET 67105 06/08/202405/12, 07/24/2022, 03/19/2020, Additional history exists TSH 06/08/2024 06/08/2023, 07/09, 06/12/2021, Additional history exists *BISPHONATE OR OTHER ACCEPTABLE MEDICATION NEEDED FOR OSTEOPOROSIS (REFER TO SMARTSET #1146) Addressed 03/10/2015 (Declined) Overridden w ith the intention of not completing the topic Pneumococcal Vaccine: 65+ Years Completed 03/10/2015, 02/02/2004 VITAMIN D LEVEL ONCE IN A LIFETIME-USE SMARTSET# [id number] Completed 07/24/2022, 03/19/2020, 05/13/2019, Additional history exists [...] 3:18 PM 08/28/2003 3:18 PM Care Teams Billboard Erector Relationship Specialty Start Date End Date Milton Moreno MD [address] [place] [address] PCP - General Family Medicine 12/07/17 documented as of this encounter
--- OUTSIDE RECORDS SUMMARY | 2023-08-06 11:19 | External Medical Summary | Summary of Care ---
Author Name Unknown Organization [facility] Address [address] [place] [address] Phone [phone] Care Team Providers Care Wire Weaver Helper Name Role Phone Carlos Mroeno MD Primary Care Provider [phone] Reason for Referral * Medication Prior Authorization - Closed Specialty Diagnoses / Procedures Referred By Contac t Referred To Contact Diagnoses Spinal stenosis, lumbar region, without neurogenic claudication Carlos Moreno MD [address] [place] [address] Referral ID Status Reason Start Date Expiration Date Visits Re quested Visits Authorized [id number] Closed [phone] Reason for Visit * Reason Onset Date Comments Medication Refill 07/06/2023 Encounter Details Date Type Department Care Team (Late st Contact Info) Description 07/06/2023 Refill [facility] [address] [place] [facility] [place] [id number] Carlos Moreno MD [address], [place] [id number] Spinal stenosis, lumbar region, without neurogenic claudication Allergies Active Allergy Reactions Criticality Noted Date Comments Ibandronate Sodium 02/04/2010 Domperidone 04/16/2009 Side effects- bad, vivid dreams, but still taking it Penicillin G 08/25/1997 rash Shellfish-Derived Products 2 Sulfa Antibiotics 08/25/1997 Does not remember documented as of this encounter (statuses as of 07/07/2023) Medications Medication Sig Dispensed Refills Start Date [...] 07/28/2022 Active Famotidine 20 MG Oral Tablet (Pepcid)Indicatio [...] for pain 10 Patch 0 07/07/2023 Active fentaNYL 50 MCG/HR Transdermal Patch 72 Hour (Duragesic)Indica tions:Spinal stenosis, lumbar region, without neurogenic claudication Place 1 Patch topically on the skin every 3 days. Apply for pain 10 Patch 0 06/05/2023 Discontinue d(Refill) documented as of this encounter (statuses as of 07/07/2023) Active Problems Problem Noted Date Diagnosed Date [...] as of this encounter (statuses as of 07/07/2023) Resolved Problems Problem Noted Date Diagnosed Date [...] 04/04/2003 09/05/2014 SPINAL STENOSIS-LUMBAR 11/22/200209/05 DISC DIS JWD-EPP-DMWJVP 11/22/200201/2010 PAIN IN LIMB, RIGHT LEG 11/22/200208/10 AC MAXILLARY SINUSITIS, RIGHT 09/07/2002 01/19/2006 ACUTE URI NOS 09/07/2002 01/19/2006 Nausea 09/07/2002 01/19/2006 Overview: ICD-10 update of inactive term PULSATILE TINNITUS 09/07/200209/05/ 5 BENIGN HYPERTENSION 08/23/2002 03/26/20 09 DISC DIS YES-TBV-TLVFIC 07/28/200201/09 DIVERTICULOSIS OF COLON 07/28/200208/10 Overview: Colonoscopy 03/19/06--repeat 10 years Chest pain 03/19/2010 Esophageal reflux 09/05/2014 Mixed dyslipidemia 9 Overview: Per Lipid Taxonomy. Irritable bowel syndrome Hypothyroidism 12/01/2011 Carpal tunnel syndrome 09/05 HTN, goal below 140/90 03/06 HTN, goal below 150/90 03/13 HTN, goal below 150/90 06/06 documented as of this encounter (statuses as of 07/07/2023) Immunizations Name Administration Dates Next Due Pneumococcal [...] encounter Miscellaneous Notes * Telephone Encounter - Calros Moreno MD - 07/07/2023 5:17 PM ESTSigned Prescriptions: Disp Refills fentaNYL 50 MCG/HR Transdermal Patch 72 Ho*10 Pat*0 Sig: Place 1 Patch topically on the skin every 3 days. Apply for pain Authorizing Provider: CARLOS MORENO * Telephone Encounter - Leanne Amador CPhT - 07/07/2023 11:33 AM EST Pt calling to make sure the correct pharmacy was requested for her patches Thank you, Leanne Amador CPhT II Masonry Teacher [facility] ([facility]) (Formerly Telepharmacy) 07/07/2023, 11:33 AM * Telephone Encounter - Wyatt Sher [facility] - 07/07/2023 10:19 AM ESTPending Prescriptions: Disp Refills fentaNYL 50 MCG/HR Transdermal Patch 72 Ho*10 Pat*0 Sig: Place 1 Patch topically on the skin every 3 days. Apply for pain * Telephone Encounter - Wyatt Sher [facility] - 07/07/2023 10:19 AM EST I have reviewed the patients controlled substance dispensing history in the Prescription Drug Monitoring Program in compliance with the [facility] regulations before prescribing a controlled substance. PDMP checked on 07/07/2023. Pending Prescriptions: Disp Refills fentaNYL 50 MCG/HR Transdermal Patch 72 Ho*10 Pat*0 Sig: Place 1 Patch topically on the skin every 3 days. Apply for pain Last Visit: 06/08/2023 (in office), Visit date not found (telemedicine) Next Visit: Visit date not found Date medication was last filled: 06-05-23 Date medication is due for refill: 07-04-23 Pharmacy: [facility] #[id number] Is this request for a controlled substance? and Urine Drug Screen Not completed Toxicology results: Results for orders placed or performed in [...] results can be found in Results Review. Please approve if appropriate. Thanks, Wyatt Sher, Christa.Ph. Clinical Pharmacist [facility] [phone] 07/07/2023,10:19 AM * Telephone Encounter - Juliane Rose, chef passenger vessel - 07/06/2023 11:05 AM EST Did you pend patient's preferred pharmacy and medication before forwarding?yes Pharmacy: [facility] [employer]/[facility]ARMACY #[id number] [id number] [facility] Pending Prescriptions: Disp Refills fentaNYL 50 MCG/HR Transdermal Patch 72 H*10 Pat*0 Sig: Place 1 Patch topically on the skin every 3 days. Apply for pain Last Visit: 06/08/2023 (in office), Visit date not found (telemedicine) Next Visit: Visit date not found If no future appointments scheduled, and last appointment is greater than a year ago, please schedule patient for a follow-up appointment Last date the medication was ordered: 06-05-23 Is this request for a controlled substance?Yes, What was the last refill date 06-05-23 w/ quantity 10 and dosage 50 mcg/hr and Urine Drug Screen was completed Urine Drug Screen: Results for orders placed [...] 07/27/2023 2:30 PM EDT Office Visit Nephrology [address] [place] [address] Juliette Benjamin PA-C [address] [place] [address] 07/28/2023 1:30 PM EDT Office Visit Orthopaedics [facility] [address] [place] [address] Maria Fernanda Kennedy MD [address] [place] [address] 01/04/2024 3:30 PM EDT Office Visit Cardiology, [facility] [address] [place] [address] Lyla Qureshi PA-C [address] [place] [address] Health Maintenance Due Date Last Done Comments [...] Additional history exists CKD HGB USE SMARTSET 55431 06/08/202406/08, 07/24/2022, 03/19/2020, Additional history exists CKD PHOS USE SMARTSET 39860 06/08/202405/12, 07/24/2022, 03/19/2020, Additional history exists TSH 06/08/2024 06/08/2023, 07/09, 06/12/2021, Additional history exists *BISPHONATE OR OTHER ACCEPTABLE MEDICATION NEEDED FOR OSTEOPOROSIS (REFER TO SMARTSET #1146) Addressed 03/10/2015 (Declined) Overridden w ith the intention of not completing the topic Pneumococcal Vaccine: 65+ Years Completed 03/10/2015, 02/02/2004 VITAMIN D LEVEL ONCE IN A LIFETIME-USE SMARTSET# 56449 Completed 07/24/2022, 03/19/2020, 05/13/2019, Additional history exists [...] as of this encounter Visit Diagnoses Diagnosis Spinal stenosis, lumbar region, without neurogenic claudication documented in this encounter Advance Directives Latest Code Status on File Code Status Date Activated Date Inactivated Comments None 08/28/2003 3:18 PM 08/28/2003 3:18 PM Care Teams Wire Weaver Helper Relationship Specialty Start Date End Date Carlos Moreno MD [address] [place] [address] PCP - General Family Medicine 12/07/17 documented as of this encounter
--- OUTSIDE RECORDS SUMMARY | 2023-08-06 11:20 | External Medical Summary | Summary of Care ---
Author Name Unknown Organization [facility] Address [address] [place] [address] Phone [phone] Care Team Providers Care Surveying Technician Name Role Phone Mliton Moreno MD Primary Care Provider Reason for Visit * Reason Comments Outpatient Testing Encounter Details Date Type Department Care Team (Late st Contact Info) Description 06/08/2023 9:40 AM EST Laboratory Laboratory, [place] [address] [place] [address] [place] [address] [place] [address] [facility] Other*[id number]; Encounter for long-term (current) use of medications; Other fatigue; Dyslipidemia, goal LDL below 100; HTN, goal below 150/90; Acquired hypothyroidism Allergies Active Allergy Reactions Criticality Noted Date Comments Ibandronate Sodium 02/04/2010 Domperidone 04/16/2009 Side effects- bad, vivid dreams, but still taking it Penicillin G 08/25/1997 rash Shellfish-Derived Products 2 Sulfa Antibiotics 08/25/1997 Does not remember documented as of this encounter (statuses as of 06/08/2023) Medications Medication Sig Dispensed Refills Start Date [...] Apply for pain 10 Patch 0 06/05/2023 Active documented as of this encounter (statuses as of 06/08/2023) Active Problems Problem Noted Date Diagnosed Date [...] as of this encounter (statuses as of 06/08/2023) Resolved Problems Problem Noted Date Diagnosed Date [...] 04/04/2003 09/05/2014 SPINAL STENOSIS-LUMBAR 11/22/200209/05 DISC DIS [id number] 11/22/200201/2010 PAIN IN LIMB, RIGHT LEG 11/22/200208/10 AC MAXILLARY SINUSITIS, RIGHT 09/07/2002 01/19/2006 ACUTE URI NOS 09/07/2002 01/19/2006 Nausea 09/07/2002 01/19/2006 Overview: ICD-10 update of inactive term PULSATILE TINNITUS 09/07/2002 5 BENIGN HYPERTENSION 08/23/2002 03/26/20 09 DISC DIS [id number]-[id number] 07/28/200201/09 DIVERTICULOSIS OF COLON 07/28/200208/10 Overview: Colonoscopy 03/19/06--repeat 10 years Chest pain 03/19/2010 Esophageal reflux 09/05/2014 Mixed dyslipidemia 9 Overview: Per Lipid Taxonomy. Irritable bowel syndrome Hypothyroidism 12/01/2011 Carpal tunnel syndrome 09/05 HTN, goal below 140/90 03/06 HTN, goal below 150/90 03/13 HTN, goal below 150/90 06/06 documented as of this encounter (statuses as of 06/08/2023) Immunizations Name Administration Dates Next Due Pneumococcal [...] Care Team (Late st Contact Info) Description 06/22/2023 2:00 PM EST Office Visit Orthopaedics [address] [place] [address] Maria Fernanda Kennedy MD [address] [place] [address] 07/20/2023 2:30 PM EDT Office Visit Cardiology, [facility] [address] [place] [address] Octavio Bolivar, [address] [place] [address] 07/27/2023 2:30 PM EDT Office Visit Nephrology [address] [place] [id number] Juliette Benjamin PA-C [address] [place] [address] Pending Results Name Type Priority Associated Diagnoses Date /Time MYCODE SUBSEQUENT ADULT Lab Routine MyCode Research Other*[id number] 06/08/2023 3:49 PM EST MAGNESIUM Lab Routine Encounter for long-term (current) use of medications 06/08/2023 3:49 PM EST VITAMIN B12 Lab Routine Encounter for long-term (current) use of medications 06/08/2023 3:49 PM EST CBC Lab Routine Other fatigue 06/08/2023 3:49 PM EST PHOSPHORUS Lab Routine Other fatigue 06/08/2023 3:49 PM EST LIPID PANEL WITH DIRECT LDL IF TG IS HIGH Lab Routine Dyslipidemia, goal LDL below 100 06/08/2023 3:49 PM EST COMPREHENSIVE METABOLIC PANEL Lab Routine HTN, goal below 150/90 06/08/2023 3:49 PM EST TSH WITH FREE T4 IF INDICATED Lab Routine Acquired hypothyroidism 06/08/2023 3:49 PM EST MYCODE SST1 Lab Routine [facility] Other*[id number] 06/08/2023 3:49 PM EST MYCODE SST2 Lab Routine [facility] Other*[id number] 06/08/2023 3:49 PM EST Health Maintenance Due Date Last Done Comments DXA Scan 10/08/2018 10/08/2016, 08/09, 02/24/2012, Additional history exists Zoster Vaccines (3 of 3) 12/20/2018 10/25/2018, 01/2012 DTaP,Tdap,and Td Vaccines (2 - Td or Tdap) 12/11/2022 12/11/2012, 02/09/2000 Mammogram 12/20/2022 12/20/2021, 07/09, 07/22/2019, Additional history exists COVID-19 Vaccine ( - season) 2023 09/06/2020, 08/16/2020 Depression Screening 06/23/2023 06/23/2022, 02/20/2017, 03/10/2015 (Discussed) Albumin/Creatinine Ratio 07/25/2023 023, 03/19/2020, 08/31/2017, Additional history exists CKD HGB USE SMARTSET 72503 07/25/202307/24, 03/19/2020, 05/13/2019, Additional history exists CKD PHOS USE SMARTSET 27092 07/25/202307/09, 03/19/2020, 05/13/2019, Additional history exists TSH 07/25/2023 07/24/2022, 06/2021, 07/03/2020, Additional history exists *BISPHONATE OR OTHER ACCEPTABLE MEDICATION NEEDED FOR OSTEOPOROSIS (REFER TO SMARTSET #1146) Addressed 03/10/2015 (Declined) Overridden w ith the intention of not completing the topic Pneumococcal Vaccine: 65+ Years Completed 03/10/2015, 02/02/2004 VITAMIN D LEVEL ONCE IN A LIFETIME-USE SMARTSET# [id number] Completed 07/24/2022, 03/19/2020, 05/13/2019, Additional history exists [...] as of this encounter Visit Diagnoses Diagnosis MyCode Research Other*[id number] Encounter for long-term (current) use of medications Encounter for long-term (current) use of other medications Other fatigue Dyslipidemia, goal LDL below 100 Other and unspecified hyperlipidemia HTN, goal below 150/90 Acquired hypothyroidism Unspecified hypothyroidism documented in this encounter Advance Directives Latest Code Status on File Code Status Date Activated Date Inactivated Comments None 08/28/2003 3:18 PM 08/28/2003 3:18 PM Care Teams Surveying Technician Relationship Specialty Start Date End Date Milton Moreno MD [address] [place] [address] PCP - General Family Medicine 12/07/17 documented as of this encounter
--- OUTSIDE RECORDS SUMMARY | 2023-08-06 11:20 | External Medical Summary ---
Author Name Unknown Address Unknown Organization K01[place] [place] [address] [place] [id number] Laboratory Report Ordering Provider Test Date Status JESUS GONZALEZ 06/08/2023 15:49:04 Final Observation Date Value Abnormality Reference (Units ) Status Vitamin B12 06/08/2023 15:49:04 [phone] (pg/mL) Final Performing Location LAB[facility]ATORY [facility] - [address] [place] [address]
--- OUTSIDE RECORDS SUMMARY | 2023-08-06 11:20 | External Medical Summary | Summary of Care ---
Author Name Unknown Organization [facility] Address [address] [facility] [place] [address] Phone [phone] Care Team Providers Care Building Mover Name Role Phone Milton Moreno MD Primary Care Provider [phone] Encounter Details Date Type Department Care Team (Late st Contact Info) Description 06/18/2023 Patient Reported Data Patient Survey Ortho [facility] Allergies Active Allergy Reactions Criticality Noted Date Comments Ibandronate Sodium 02/04/2010 Domperidone 04/16/2009 Side effects- bad, vivid dreams, but still taking it Penicillin G 08/25/1997 rash Shellfish-Derived Products 2 Sulfa Antibiotics 08/25/1997 Does not remember documented as of this encounter (statuses as of 06/18/2023) Medications Medication Sig Dispensed Refills Start Date [...] as of this encounter (statuses as of 06/18/2023) Active Problems Problem Noted Date Diagnosed Date [...] as of this encounter (statuses as of 06/18/2023) Resolved Problems Problem Noted Date Diagnosed Date [...] 04/04/2003 09/05/2014 SPINAL STENOSIS-LUMBAR 11/22/200209/05 DISC DIS [id number] 11/22/2002 11/0 01/2010 PAIN IN LIMB, RIGHT LEG 11/22/200208/10 AC MAXILLARY SINUSITIS, RIGHT 09/07/2002 01/19/2006 ACUTE URI NOS 09/07/2002 01/19/2006 Nausea 09/07/2002 01/19/2006 Overview: ICD-10 update of inactive term PULSATILE TINNITUS 09/07/2002 5 BENIGN HYPERTENSION 08/23/2002 03/26/20 09 DISC DIS [id number]-TNN-FPRYPT 07/28/200201/09 DIVERTICULOSIS OF COLON 07/28/200208/10 Overview: Colonoscopy 03/19/06--repeat 10 years Chest pain 03/19/2010 Esophageal reflux 09/05/2014 Mixed dyslipidemia 9 Overview: Per Lipid Taxonomy. Irritable bowel syndrome Hypothyroidism 12/01/2011 Carpal tunnel syndrome 09/05 HTN, goal below 140/90 03/06 HTN, goal below 150/90 03/13 HTN, goal below 150/90 06/06 documented as of this encounter (statuses as of 06/18/2023) Immunizations Name Administration Dates Next Due Pneumococcal [...] 06/22/2023 2:00 PM EST Office Visit Orthopaedics [facility] [address] [place] [address] Maria Fernanda Kennedy MD [address] [place] [address] 07/20/2023 2:30 PM EDT Office Visit Cardiology, [facility] [address] [place] [address] Octavio Bolivar, [address] [place] [address] 07/27/2023 2:30 PM EDT Office Visit Nephrology [address] [place] [address] Juliette Benjamin PA-C [address] [place] [address] Health Maintenance Due Date Last Done Comments [...] Additional history exists CKD HGB USE SMARTSET 82301 06/08/202406/08, 07/24/2022, 03/19/2020, Additional history exists CKD PHOS USE SMARTSET 53992 06/08/202405/12, 07/24/2022, 03/19/2020, Additional history exists TSH 06/08/2024 06/08/2023, 07/09, 06/12/2021, Additional history exists *BISPHONATE OR OTHER ACCEPTABLE MEDICATION NEEDED FOR OSTEOPOROSIS (REFER TO SMARTSET #1146) Addressed 03/10/2015 (Declined) Overridden w ith the intention of not completing the topic Pneumococcal Vaccine: 65+ Years Completed 03/10/2015, 02/02/2004 VITAMIN D LEVEL ONCE IN A LIFETIME-USE SMARTSET# 00213 Completed 07/24/2022, 03/19/2020, 05/13/2019, Additional history exists [...] 3:18 PM 08/28/2003 3:18 PM Care Teams Building Mover Relationship Specialty Start Date End Date Milton Moreno MD [address] [place] [address] PCP - General Family Medicine 12/07/17 documented as of this encounter
--- OUTSIDE RECORDS SUMMARY | 2023-08-06 11:20 | External Medical Summary | Summary of Care ---
Author Name Unknown Organization [facility] Address [address] [facility] [place] [address] Phone [phone] Care Team Providers Care Television Parts Tester Name Role Phone Milton Moreno MD Primary Care Provider [phone] Encounter Details Date Type Department Care Team [...] 04/04/2003 09/05/2014 SPINAL STENOSIS-LUMBAR 11/22/200209/05 DISC DIS [id number] 11/22/2002 11/0 01/2010 PAIN IN LIMB, RIGHT LEG 11/22/200208/10 AC MAXILLARY SINUSITIS, RIGHT 09/07/2002 01/19/2006 ACUTE URI NOS 09/07/2002 01/19/2006 Nausea 09/07/2002 01/19/2006 Overview: ICD-10 update of inactive term PULSATILE TINNITUS 09/07/2002 5 BENIGN HYPERTENSION 08/23/2002 03/26/20 09 DISC DIS FNI-VDZ-EFCBUD 07/28/200201/09 DIVERTICULOSIS OF COLON 07/28/200208/10 Overview: Colonoscopy [...] 06/22/2023 2:00 PM EST Office Visit Orthopaedics [facility] [address] [place] [address] Maria Fernanda Kennedy MD [address] [place] [address] 07/20/2023 2:30 PM EDT Office Visit Cardiology, [facility] [address] [place] [address] Octavio Bolivar, [address] [place] [address] 07/27/2023 2:30 PM EDT Office Visit Nephrology [address] [place] [address] Juliette Benjamin PA-C [address] [place] [address] Health Maintenance Due Date Last Done Comments [...] Additional history exists CKD HGB USE SMARTSET 83270 06/08/202406/08, 07/24/2022, 03/19/2020, Additional history exists CKD PHOS USE SMARTSET 93947 06/08/202405/12, 07/24/2022, 03/19/2020, Additional history exists TSH 06/08/2024 06/08/2023, 07/09, 06/12/2021, Additional history exists *BISPHONATE OR OTHER ACCEPTABLE MEDICATION NEEDED FOR OSTEOPOROSIS (REFER TO SMARTSET #1146) Addressed 03/10/2015 (Declined) Overridden w ith the intention of not completing the topic Pneumococcal Vaccine: 65+ Years Completed 03/10/2015, 02/02/2004 VITAMIN D LEVEL ONCE IN A LIFETIME-USE SMARTSET# 66723 Completed 07/24/2022, 03/19/2020, 05/13/2019, Additional history exists [...] 3:18 PM 08/28/2003 3:18 PM Care Teams Television Parts Tester Relationship Specialty Start Date End Date Milton Moreno MD [address] [place] [address] PCP - General Family Medicine 12/07/17 documented as of this encounter
--- OUTSIDE RECORDS SUMMARY | 2023-08-06 11:20 | External Medical Summary ---
Author Name Unknown Address Unknown Organization K01:[facility] [place] [address] [facility] [place] [address] Laboratory Report Ordering Provider Test Date Status JESUS GONZALEZ 06/08/2023 15:49:04 Final Observation Date Value Abnormality Reference (Units ) Status BUN 06/08/2023 15:49:04 18 6-20 (mg/dL) Final Creatinine 06/08/2023 15:49:04 1.4 Above high normal 0.5-1.0 (mg/dL) Final Glomerular filtration rate/1.73 sq M.predicted [Volume Rate/Area] in Serum, Plasma or Blood by Creatinine-based formula (CKD-EPI) 06/08/2023 15:49:04 36 Below low normal >=60 (mL/min) Final eGFR is calculated based on the CKD-EPI 2020 equation SODIUM 06/08/2023 15:49:04 140 135-146 (m mol/L) Final Potassium 06/08/2023 15:49:04 4.7 3.5-5.1 (m mol/L) Final Cl 06/08/2023 15:49:04 102 98-107 (mm ol/L) Final CO2 06/08/2023 15:49:04 26 22-32 (mmo l/L) Final Anion gap 06/08/2023 15:49:04 12 7-15 (mmol /L) Final Glucose 06/08/2023 15:49:04 90 70-120 (mg /dL) Final Albumin 06/08/2023 15:49:04 4.7 3.8-5.0 (g /dL) Final AST (Aspartate aminotransferase) 06/08/2023 15:49:04 19 10-35 (U/L) Final Alk Phos 06/08/2023 15:49:04 56 35-130 (U/ L) Final Bilirubin, Total 06/08/2023 15:49:04 0.3 <=1 .2 (mg/dL) Final Calcium 06/08/2023 15:49:04 9.7 8.4-10.2 ( mg/dL) Final Protein 06/08/2023 15:49:04 7.3 6.0-8.3 (g /dL) Final ALT (Alanine aminotransferase) 06/08/2023 15:49:04 14 10-35 (U/L) Final Performing Location [facility] [place] [facility] [address] [facility] [address]
--- OUTSIDE RECORDS SUMMARY | 2023-08-06 11:20 | External Medical Summary ---
Author Name Unknown Address Unknown Organization K01:[facility]ATORY [facility] [place] [address] [place] [address] Laboratory Report Ordering Provider Test Date Status JHOAN HOLLIS 06/08/2023 15:49:04 Final Observation Date Value Abnormality Reference (Units ) Status MYCODE SPECIMEN-SST 06/08/2023 15:49:04 Freezing of extracted DNA, whole blood and/or serum. Final Performing Location LABORATORY [facility] [place] - [address] [place] [address]
--- OUTSIDE RECORDS SUMMARY | 2023-08-06 11:20 | External Medical Summary | Summary of Care ---
Author Name Unknown Organization [facility] Address [address] [place] [address] Phone [phone] Care Team Providers Care Administrative Volunteer Name Role Phone Milton Moreno MD Primary Care Provider Reason for Visit * Reason Comments Follow Up Left hip * Evaluate & Treat - Unlimited Visits (Within 30 days (routine)) - Authorized Specialty Diagnoses / Procedures Referred By Tam odom Referred To Contact Sports Medicine / Orthopedics Diagnoses Primary osteoarthritis of one hip, left Milton Moreno MD [address] [place] [address] Maria Fernanda Kennedy MD [address] [place] [address] Referral ID Status Reason Start Date Expiration Date Visits Requested Visits Authorized [id number] Authorized Specialty Services Required 06/08/[phone] Encounter Details Date Type Department Care Team (Latest Contact Info) Description 06/22/2023 2:00 PM EST Office Visit Orthopaedics [facility] [address] [place] [address] Maria Fernanda Kennedy MD [address] [place] [address] Primary osteoarthritis of one hip, left* Allergies Active Allergy Reactions Criticality Noted Date Comments Ibandronate Sodium 02/04/2010 Domperidone 04/16/2009 Side effects- bad, vivid dreams, but still taking it Penicillin G 08/25/1997 rash Shellfish-Derived Products 2 Sulfa Antibiotics 08/25/1997 Does not remember documented as of this encounter (statuses as of 06/22/2023) Medications Medication Sig Dispensed Refills Start Date [...] for pain 10 Patch 0 06/05/2023 Active Hospital, Clinic, or Other Facility Administered Medication Ordered Dose Route Frequency Start Date End Date Status lidocaine 1% 1 mL - triamcinolone acetonide 40 mg/mL 1 mL inj 2 mLIndications:Primary osteoarthritis of one hip, left 2 mL IJ ONCE 06/22/2023 06/22/2023 Ended documented as of this encounter (statuses as of 06/22/2023) Active Problems Problem Noted Date Diagnosed Date [...] as of this encounter (statuses as of 06/22/2023) Resolved Problems Problem Noted Date Diagnosed Date [...] 04/04/2003 09/05/2014 SPINAL STENOSIS-LUMBAR 11/22/200209/05 DISC DIS [id number]-GGMUUD 11/22/200201/2010 PAIN IN LIMB, RIGHT LEG 11/22/200208/10 AC MAXILLARY SINUSITIS, RIGHT 09/07/2002 01/19/2006 ACUTE URI NOS 09/07/2002 01/19/2006 Nausea 09/07/2002 01/19/2006 Overview: ICD-10 update of inactive term PULSATILE TINNITUS 09/07/200209/05/ 5 BENIGN HYPERTENSION 08/23/2002 03/26/20 09 DISC DIS PIT-QEG-ZVIONT 07/28/200201/09 DIVERTICULOSIS OF COLON 07/28/200208/10 Overview: Colonoscopy 03/19/06--repeat 10 years Chest pain 03/19/2010 Esophageal reflux 09/05/2014 Mixed dyslipidemia 9 Overview: Per Lipid Taxonomy. Irritable bowel syndrome Hypothyroidism 12/01/2011 Carpal tunnel syndrome 09/05 HTN, goal below 140/90 03/06 HTN, goal below 150/90 03/13 HTN, goal below 150/90 06/06 documented as of this encounter (statuses as of 06/22/2023) Immunizations Name Administration Dates Next Due Pneumococcal [...] Notes * Maria Fernanda Kennedy MD - 06/22/2023 2:30 PM EST Alexia Downing is a 87 year old female who presents for follow up hip pain/injury to [facility] Sports Medicine. Alexia Downing is here unaccompanied History: Chief Complaint Patient presents with Follow Up Left hip Nursing Notes: Maya Tan, MED ASSIST 06/22/23 1357 Signed Pt presents today for left hip injection, previously injected . Injection started wearing off in February. Patient presents today for follow up of left hip. I initially saw her for her hip last summer and she underwent ultrasound-guided hip injection 12/09/2022. She feels that she got about 2 months of relief from this. She is wondering if climbing a lot of stairs in February is what caused the pain to return. No weakness numbness or tingling. Review of systems: All others negative except those noted above in HPI. Physical Exam There were no vitals filed for this visit. Estimated body mass index is 25.04 kg/m as calculated from the following: Height as of 06/08/23: 1.499 m (4' 11"). Weight as of 06/08/23: 56.2 kg (124 lb). General: generally well-nourished and in no acute distress HEENT: normocephalic, atraumatic, sclera anicteric. Psych: mood and affect normal , cooperative Card: Peripheral pulses: normal in affected extremity (s) Resp: equal chest rise, non-tachypneic, non-labored breathing Skin: no rash, normal Neuro: Sensation: normal on affected extremity (s) MSK: Gait/station/stance: Mildly antalgic with the use of a cane Hip Exam Inspection: No obvious deformity, no redness, swelling, warmth, bruising, abrasion. No tenderness to palpation. Pain at end range internal and external rotation. Assessment and Plan: ICD-10-CM 1. Primary osteoarthritis of one hip, left M16.12 Very pleasant 87-year-old female seen today for follow up of left hip pain from osteoarthritis. Shehad some questions regarding repeat injection versus hip replacement. I answered her questions to the best of my ability. Ultimately, she would like to try another hip injection today to see if it lasts longer as she does not have any demanding activities coming up in the next couple of months. Bowenwihunter see her back in 1 month for re-evaluation of the hip and if she feels that the benefits starting to wear off consider referral to Dr. Bejarano or Dr. Holden. She would also like her right shoulder evaluated at that time. Procedure note: US guided LEFT hip injection Time out: Prior to injection, a time out was called to confirm the administration of appropriate medicine, patient name, procedure and confirm to the best of our ability and knowledge the presence of any necessary risks and benefits. Patient verbalizes understanding. Ultrasound utilized to guide injection Ultrasound required due to: patient size (obese) any to visualize specific joint recess and avoid other structures including femoral artery nerve A limited musculoskeletal ultrasound was performed of the LEFT femoroacetabular joint. A sagittal oblique view was obtained joint. There is no joint effusion or iliopsoas bursal effusion. With the use of power Doppler, the femoral neurovascular bundle was identified medial and superior to the joint. It was confirmed that there were no vascular structures in the proposed injection path. Aseptic technique applied. Skin cleaned with alcohol swab and chlorhexidine per standard protocol. Using a sagittal oblique view of the right femoral acetabular joint with an in plane approach, a 22 gauge spinal needle was inserted into the joint capsule. After visual confirmation of placement within the joint capsule was made, the joint was injected with 1 mL lidocaine 1% and 1 mL triamcinolone a cetonide 40 mg/mL and visualized entering the desired space. Patient tolerated procedure with no significant bleeding or adverse reaction. The above assessment and plan were discussed at length. All questions were answered, and the patient expressed understanding. Maria Fernanda Kennedy MD Primary Care Sports Medicine [facility] Orth[facility] [address] [facility] [place] [address] documented in this encounter Nursing Notes * Maya Tan MED ASSIST - 06/22/2023 1:56 PM EST Pt presents today for left hip injection, previously injected . Injection started wearing off in February. documented in this encounter Plan of Treatment Upcoming Encounters Date Type Department Care Team (Late st Contact Info) Description 07/27/2023 2:30 PM EDT Office Visit Nephrology [address] [place] [address] Juliette Benjamin PA-C [address] [place] [address] [place] [address] 07/28/2023 1:30 PM EDT Office Visit Orthopaedics [facility] [address] [place] [address] Maria Fernanda Kennedy MD [address] [facility] [place] [address] Health Maintenance Due Date Last Done Comments [...] Additional history exists CKD HGB USE SMARTSET 42333 06/08/202406/08, 07/24/2022, 03/19/2020, Additional history exists CKD PHOS USE SMARTSET 77895 06/08/202405/12, 07/24/2022, 03/19/2020, Additional history exists TSH 06/08/2024 06/08/2023, 07/09, 06/12/2021, Additional history exists *BISPHONATE OR OTHER ACCEPTABLE MEDICATION NEEDED FOR OSTEOPOROSIS (REFER TO SMARTSET #1146) Addressed 03/10/2015 (Declined) Overridden w ith the intention of not completing the topic Pneumococcal Vaccine: 65+ Years Completed 03/10/2015, 02/02/2004 VITAMIN D LEVEL ONCE IN A LIFETIME-USE SMARTSET# [id number] Completed 07/24/2022, 03/19/2020, 05/13/2019, Additional history exists [...] as of this encounter Visit Diagnoses Diagnosis Primary osteoarthritis of one hip, left- Primary documented in this encounter Administered Medications Inactive Administered Medications - up to 3 most recent administrations Medication Order MAR Action Action Date Dose Rate Site lidocaine 1% 1 mL - triamcinolone acetonide 40 mg/mL 1 mL inj 2 mL 2 mL, Injection, ONCE, On 06/22/23 at 1515, For 1 dose, Lidocaine 1% 1mL Triamcinolone Acetonide 40 mg/mL 1 mL (Final concentration = 20 mg/mL) REFRIGERATE and SHAKE WELL Given 06/22/2023 2:35 PM EST 2 mL Hip Left documented in this encounter Advance Directives Latest Code Status on File Code Status Date Activated Date Inactivated Comments None 08/28/2003 3:18 PM 08/28/2003 3:18 PM Care Teams Administrative Volunteer Relationship Specialty Start Date End Date Milton Moreno MD [address] [place] [address] PCP - General Family Medicine 12/07/17 documented as of this encounter
--- OUTSIDE RECORDS SUMMARY | 2023-08-06 11:20 | External Medical Summary | Summary of Care ---
Author Name Unknown Organization [facility] Address [address] [place] [address] Phone [phone] Care Team Providers Care Cloud Subject Matter Expert Name Role Phone Milton Moreno MD Primary Care Provider [phone] Reason for Referral * Ancillary Services (Within 30 days (routine)) - Authorized Specialty Diagnoses / Procedures Referred By Tam odom Referred To Contact Audiology Diagnoses Bilateral hearing loss, unspecified hearing loss type Milton Moreno MD [address] [place] [address] Referral ID Status Reason Start Date Expiration Date Visits Requested Visits Authorized [id number] Authorized Ancillary Services Required 06/08/2023 999 999 Question Answer Referral Priority Within 30 days (routine) Where should this appointment be scheduled? External Reason for Referral: Hearing Loss Is this sudden hearing loss or post chemotherapy hearing loss? No * Evaluate & Treat - Unlimited Visits (Within 30 days (routine)) - Authorized Specialty Diagnoses / Procedures Referred By Tam odom Referred To Contact Sports Medicine / Orthopedics Diagnoses Primary osteoarthritis of one hip, left Milton Moreno MD [address] [place] [address] Maria Fernanda Kennedy MD [address] [place] [address] Referral ID Status Reason Start Date Expiration Date Visits Requested Visits Authorized [id number] Authorized Specialty Services Required 06/08/[phone] Question Answer Referral Priority Within 30 days (routine) Where should this appointment be scheduled? [facility] What body part is the patient being seen for? Hip What condition is the patient being seen for? Arthritis including related infection Reason for Visit * Reason Comments Follow Up Wants ears checked - tinnitus Encounter Details Date Type Department Care Team (Latest Contact Info) Description 06/08/2023 2:20 PM EST Office Visit [facility] [address] [place] [address] Milton Moreno MD [address] [place] [address] Bilateral hearing loss, unspecified hearing loss type*; Acquired hypothyroidism; Primary osteoarthritis of one hip, left; Encounter for long-term (current) use of medications; Other fatigue; HTN, goal below 150/90; Chronic kidney disease, stage 3b (HCC); Dyslipidemia, goal LDL below 100 Allergies Active Allergy Reactions Criticality Noted Date [...] Cholecalciferol (VITAMIN D) 50 MCG (2000 UT) CapsuleIndications: takes at lunch Take 2,000 [...] 04/04/2003 09/05/2014 SPINAL STENOSIS-LUMBAR 11/22/200209/05 DISC DIS [id number] 11/22/200201/2010 PAIN IN LIMB, RIGHT LEG 11/22/200208/10 AC MAXILLARY SINUSITIS, RIGHT 09/07/2002 01/19/2006 ACUTE URI NOS 09/07/2002 01/19/2006 Nausea 09/07/2002 01/19/2006 Overview: ICD-10 update of inactive term PULSATILE TINNITUS 09/07/2002 5 BENIGN HYPERTENSION 08/23/2002 03/26/20 09 DISC DIS TEX-OMX-[id number] 07/28/200201/09 DIVERTICULOSIS OF COLON 07/28/200208/10 Overview: Colonoscopy [...] Sign Reading Time Taken Comments Blood Pressure 110/60 06/08/2023 2:36 PM EST Pulse 66 06/08/2023 2:36 PM EST Temperature 36.6 C (97.8 F) 06/08/2023 2:36 PM ES T Respiratory Rate 16 06/08/2023 2:36 PM EST Oxygen Saturation - - Inhaled Oxygen Concentration - - Weight 56.2 kg (124 lb) 06/08/2023 2:36 PM EST Height 149.9 cm (4' 11") 06/08/2023 2:36 PM EST Body Mass Index 25.04 06/08/2023 2:36 PM EST documented in this encounter Progress Notes * Milton Moreno MD - 06/08/2023 3:17 PM EST Subjective: Alexia Downing is a 87 year old female. Chief Complaint Patient presents with Follow Up Wants ears checked -tinnitus HPI: 87-year-old seen today for scheduled visit. Having more difficulty with hearing and tinnitus. Especially the right ear. Had hearing testing done about a year ago. She really did not feel she gotmuch out a the exam. I can not locate the audiologic report from the director of digital marketing at the [employer] [facility] [employer]. She is interested in seeing a different director of digital marketing. She continues to have a lot a pain in the groin areas especially on the left. About 6 months ago she had an injection with Dr. Kennedy in Sports Medicine and apparently this did help a good bit but the pain not unexpectedly has recurred. Not having much problem with the right hip. Has a lot of other areas of diffuse pain including the Um upper thoracic spine in the base of her thumbs in the knees as well as the hips. Remains on fentanyl 50 mcg patch. She notes that she has more discomfort on the 3rd day of a patch. She knows she can use Tylenol up the 3 g a day. Not bothered with chest pain but she has fatigue. She also tells me that she has a hard time staying awake. 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 Apply for pain 10 Patch 0 Triamcinolone Acetonide 0.1 % External Cream (Aristocort) Apply to rash two times a day x 2 weeks then stop. (Patient not taking: Reported on 01/23/2023) 15 g 0 No current facility-administered medications for this visit. Review of patient's allergies indicates: Allergen Reactions Boniva [Ibandronate Sodium] Domperidone Side effects- bad, vivid dreams, but still taking it Penicillin G rash Shellfish-Derived Products Sulfa Antibiotics Does not remember Objective: BP 110/60 | Pulse 66 | Temp 36.6 C (97.8 F) | Resp 16 | Ht 1.499 m (4' 11") | Wt 56.2 kg (124 lb) | BMI 25.04 kg/m | BSA 1.53 m Physical Exam: CONST: alert, pleasant, no acute distress HEAD: normocephalic, atraumatic NECK: supple, soft, no adenopathy EARS: canals normal, TMs normal. She does not have any cerumen in either ear in both tympanic membranes are clear Eyes - PERRLA, EOM'I OROPHARYNX: clear, no swelling or erythema, moist CV: regular rate and rhythm, no murmur CHEST: clear to auscultation bilaterally, no rales or wheezing ABD: soft, non tender, non distended, no masses or hepatosplenomegaly EXT: no edema, no joint swelling or deformities, N SKIN: no rash or significant lesions ASSESSMENT/PLAN: Bilateral hearing loss, unspecified hearing loss type (Primary) - AUDIOLOGY REFERRAL OP Acquired hypothyroidism - TSH WITH FREE T4 IF INDICATED; Future; Expected date: 06/08/2023 Continue levothyroxine 75 mcg daily Primary osteoarthritis of one hip, left - SPORTS MEDICINE REFERRAL OP. I make this referral anticipating that she will have another left hip injection but I think it would be a good idea that she at least talk with Dr. Kennedy about possibility of hip replacement. She is reluctant strictly because of her age. Encounter for long-term (current) use of medications-Protonix - MAGNESIUM; Future; Expected date: 06/08/2023 - VITAMIN B12; Future; Expected date: 06/08/2023 Other fatigue - CBC; Future; Expected date: 06/08/2023 TSH HTN, goal below 150/90-well controlled - COMPREHENSIVE METABOLIC PANEL; Future; Expected date: 06/08/2023 Continue lisinopril 30 mg daily metoprolol succinate 25 mg daily and hydrochlorothiazide 25 mg, half tablet or 12.5 mg daily Chronic kidney disease, stage 3b (HCC)-stable but low CKD 3 Dyslipidemia, goal LDL below 100 - LIPID PANEL WITH DIRECT LDL IF TG IS HIGH; Future; Expected date: 06/08/2023 -continue rosuvastatin 5 mg daily. Check-out note: Schedule with audiology in [place] - lesil Moreno MD documented in this encounter Nursing Notes * Olena Fernandes LPN - 06/08/2023 2:40 PM EST The patient has been properly identified by confirmation of name and date of . Chief Complaint Patient presents with Follow Up Wants ears checked -tinnitus documented in this encounter Plan of Treatment Upcoming Encounters Date Type Department Care Team (Late st Contact Info) Description 06/22/2023 2:00 PM EST Office Visit Orthopaedics [facility] [address] [place] [address] Maria Fernanda Kennedy MD [address] [place] [address] 07/20/2023 2:30 PM EDT Office Visit Cardiology, [facility] [address] [place] [address] Octavio Bolivar DO [address] [place] [address] 07/27/2023 2:30 PM EDT Office Visit Nephrology [address] [place] [address] Juliette Benjamin PA-C [address] [facility] [place] [address] Pending Results Name Type Priority Associated Diagnoses Date /Time MAGNESIUM Lab Routine Encounter for long-term (current) [...] Routine Acquired hypothyroidism 06/08/2023 3:49 PM EST Scheduled Orders Name Type Priority Associated Diagnoses Orde r Schedule MAGNESIUM Lab Routine Encounter for long-term (current) use of medications Expected: 06/08/2023 (Approximate), Expires: 06/07/2024 VITAMIN B12 Lab Routine Encounter for long-term (current) use of medications Expected: 06/08/2023 (Approximate), Expires: 06/07/2024 CBC Lab Routine Other fatigue Expected: 06/08/2023 (Approximate), Expires: 06/07/2024 PHOSPHORUS Lab Routine Other fatigue Expected: 06/08/2023 (Approximate), Expires: 06/07/2024 LIPID PANEL WITH DIRECT LDL IF TG IS HIGH Lab Routine Dyslipidemia, goal LDL below 100 Expected: 06/08/2023, Expires: 06/08/2024 COMPREHENSIVE METABOLIC PANEL Lab Routine HTN, goal below 150/90 Expected: 06/08/2023 (Approximate), Expires: 06/07/2024 TSH WITH FREE T4 IF INDICATED Lab Routine Acquired hypothyroidism Expected: 06/08/2023 (Approximate), Expires: 06/07/2024 Scheduled Referrals Name Type Priority Associated Diagnoses Orde r Schedule SPORTS MEDICINE REFERRAL OP Referral Within 30 days (routine) Primary osteoarthritis of one hip, left Ordered: 06/08/2023 AUDIOLOGY REFERRAL OP Referral Within 30 days (routine) Bilateral hearing loss, unspecified hearing loss type Ordered: 06/08/2023 Health Maintenance Due Date Last Done Comments [...] Additional history exists CKD HGB USE SMARTSET 44052 07/25/202307/24, 03/19/2020, 05/13/2019, Additional history exists CKD PHOS USE SMARTSET 11039 07/25/202307/09, 03/19/2020, 05/13/2019, Additional history exists TSH 07/25/2023 07/24/2022, 06/2021, 07/03/2020, Additional history exists *BISPHONATE OR OTHER ACCEPTABLE MEDICATION NEEDED FOR OSTEOPOROSIS (REFER TO SMARTSET #1146) Addressed 03/10/2015 (Declined) Overridden w ith the intention of not completing the topic Pneumococcal Vaccine: 65+ Years Completed 03/10/2015, 02/02/2004 VITAMIN D LEVEL ONCE IN A LIFETIME-USE SMARTSET# 03615 Completed 07/24/2022, 03/19/2020, 05/13/2019, Additional history exists [...] as of this encounter Visit Diagnoses Diagnosis Bilateral hearing loss, unspecified hearing loss type- Primary Acquired hypothyroidism Unspecified hypothyroidism Primary osteoarthritis of one hip, left Encounter for long-term (current) use of medications Encounter for long-term (current) use of other medications Other fatigue HTN, goal below 150/90 Chronic kidney disease, stage 3b (HCC) Dyslipidemia, goal LDL below 100 Other and unspecified hyperlipidemia documented in this encounter Advance Directives Latest Code Status on File Code Status Date Activated Date Inactivated Comments None 08/28/2003 3:18 PM 08/28/2003 3:18 PM Care Teams Cloud Subject Matter Expert Relationship Specialty Start Date End Date Milton Moreno MD [address] [place] [facility] [place] [address] PCP - General Family Medicine 12/07/17 documented as of this encounter
--- OUTSIDE RECORDS SUMMARY | 2023-08-06 11:20 | External Medical Summary | Summary of Care ---
Author Name Unknown Organization [facility] Address [address] [facility] [place] [address] Phone [phone] Care Team Providers Care Software Engineering Project Manager Name Role Phone Milton Moreno MD Primary Care Provider [phone] Encounter Details Date Type Department Care Team (Late st Contact Info) Description 06/09/2023 Patient Reported Data Patient Survey Ortho OBERD Allergies Active Allergy Reactions Criticality Noted Date Comments Ibandronate Sodium 02/04/2010 Domperidone 04/16/2009 Side effects- bad, vivid dreams, but still taking it Penicillin G 08/25/1997 rash Shellfish-Derived Products 2 Sulfa Antibiotics 08/25/1997 Does not remember documented as of this encounter (statuses as of 06/09/2023) Medications Medication Sig Dispensed Refills Start Date [...] as of this encounter (statuses as of 06/09/2023) Active Problems Problem Noted Date Diagnosed Date [...] as of this encounter (statuses as of 06/09/2023) Resolved Problems Problem Noted Date Diagnosed Date [...] 04/04/2003 09/05/2014 SPINAL STENOSIS-LUMBAR 11/22/200209/05 DISC DIS [id number] 11/22/2002 11/0 01/2010 PAIN IN LIMB, RIGHT LEG 11/22/200208/10 AC MAXILLARY SINUSITIS, RIGHT 09/07/2002 01/19/2006 ACUTE URI NOS 09/07/2002 01/19/2006 Nausea 09/07/2002 01/19/2006 Overview: ICD-10 update of inactive term PULSATILE TINNITUS 09/07/2002 5 BENIGN HYPERTENSION 08/23/2002 03/26/20 09 DISC DIS [id number] 07/28/200201/09 DIVERTICULOSIS OF COLON 07/28/200208/10 Overview: Colonoscopy 03/19/06--repeat 10 years Chest pain 03/19/2010 Esophageal reflux 09/05/2014 Mixed dyslipidemia 9 Overview: Per Lipid Taxonomy. Irritable bowel syndrome Hypothyroidism 12/01/2011 Carpal tunnel syndrome 09/05 HTN, goal below 140/90 03/06 HTN, goal below 150/90 03/13 HTN, goal below 150/90 06/06 documented as of this encounter (statuses as of 06/09/2023) Immunizations Name Administration Dates Next Due Pneumococcal [...] 06/22/2023 2:00 PM EST Office Visit Orthopaedics [facility] [address] [place] [address] Maria Fernanda Kennedy MD [address] [place] [address] 07/20/2023 2:30 PM EDT Office Visit Cardiology, [facility] [address] [place] [address] Octavio Bolivar, [address] [place] [address] 07/27/2023 2:30 PM EDT Office Visit Nephrology [address] [place] [address] Juliette Benjamin PA-C [address] [place] [address] Health Maintenance Due Date Last Done Comments [...] Additional history exists CKD HGB USE SMARTSET 38262 06/08/202406/08, 07/24/2022, 03/19/2020, Additional history exists CKD PHOS USE SMARTSET 75229 06/08/202405/12, 07/24/2022, 03/19/2020, Additional history exists TSH 06/08/2024 06/08/2023, 07/09, 06/12/2021, Additional history exists *BISPHONATE OR OTHER ACCEPTABLE MEDICATION NEEDED FOR OSTEOPOROSIS (REFER TO SMARTSET #1146) Addressed 03/10/2015 (Declined) Overridden w ith the intention of not completing the topic Pneumococcal Vaccine: 65+ Years Completed 03/10/2015, 02/02/2004 VITAMIN D LEVEL ONCE IN A LIFETIME-USE SMARTSET# 39519 Completed 07/24/2022, 03/19/2020, 05/13/2019, Additional history exists [...] 3:18 PM 08/28/2003 3:18 PM Care Teams Software Engineering Project Manager Relationship Specialty Start Date End Date Milton Moreno MD [address] [place] [address] PCP - General Family Medicine 12/07/17 documented as of this encounter
--- OUTSIDE RECORDS SUMMARY | 2023-08-06 11:20 | External Medical Summary | Summary of Care ---
Author Name Unknown Organization [facility] Address [address] [facility] [place] [address] Phone [phone] Care Team Providers Care Asbestos Surveyor Name Role Phone Milton Moreno MD Primary Care Provider [phone] Encounter Details Date Type Department Care Team [...] 04/04/2003 09/05/2014 SPINAL STENOSIS-LUMBAR 11/22/200209/05 DISC DIS [id number]-[id number] 11/22/2002 11/0 01/2010 PAIN IN LIMB, RIGHT LEG 11/22/200208/10 AC MAXILLARY SINUSITIS, RIGHT 09/07/2002 01/19/2006 ACUTE URI NOS 09/07/2002 01/19/2006 Nausea 09/07/2002 01/19/2006 Overview: ICD-10 update of inactive term PULSATILE TINNITUS 09/07/2002 5 BENIGN HYPERTENSION 08/23/2002 03/26/20 09 DISC DIS [id number]-NJN-VCPLFY 07/28/200201/09 DIVERTICULOSIS OF COLON 07/28/200208/10 Overview: Colonoscopy [...] 06/22/2023 2:00 PM EST Office Visit Orthopaedics [facility] [address] [place] [address] Maria Fernanda Kennedy MD [address] [place] [address] 07/20/2023 2:30 PM EDT Office Visit Cardiology, [facility] [address] [place] [address] Octavio Bolivar, [address] [place] [address] 07/27/2023 2:30 PM EDT Office Visit Nephrology [address] [place] [address] Juliette Benjamin PA-C [address] [place] [address] Health Maintenance Due Date Last Done Comments [...] Additional history exists CKD HGB USE SMARTSET 84315 06/08/202406/08, 07/24/2022, 03/19/2020, Additional history exists CKD PHOS USE SMARTSET 02970 06/08/202405/12, 07/24/2022, 03/19/2020, Additional history exists TSH 06/08/2024 06/08/2023, 07/09, 06/12/2021, Additional history exists *BISPHONATE OR OTHER ACCEPTABLE MEDICATION NEEDED FOR OSTEOPOROSIS (REFER TO SMARTSET #1146) Addressed 03/10/2015 (Declined) Overridden w ith the intention of not completing the topic Pneumococcal Vaccine: 65+ Years Completed 03/10/2015, 02/02/2004 VITAMIN D LEVEL ONCE IN A LIFETIME-USE SMARTSET# 61255 Completed 07/24/2022, 03/19/2020, 05/13/2019, Additional history exists [...] 3:18 PM 08/28/2003 3:18 PM Care Teams Asbestos Surveyor Relationship Specialty Start Date End Date Milton Moreno MD [address] [place] [address] PCP - General Family Medicine 12/07/17 documented as of this encounter
--- OUTSIDE RECORDS SUMMARY | 2023-08-06 11:20 | External Medical Summary ---
Author Name Unknown Address Unknown Organization K01:[facility] - [address] [place] [address] Laboratory Report Ordering Provider Test Date Status JESUS GONZALEZ 06/08/2023 15:49:04 Final Observation Date Value Abnormality Reference (Units ) Status Magnesium 06/08/2023 15:49:04 1.9 1.5-2.6 (m g/dL) Final Performing Location [facility] - [address] [place] [address]
--- OUTSIDE RECORDS SUMMARY | 2023-08-06 11:20 | External Medical Summary | Summary of Care ---
Author Name Unknown Organization [facility] Address [address] [place] [address] Phone [phone] Care Team Providers Care Circular Gang Saw Operator Name Role Phone Milton Moreno MD Primary Care Provider Reason for Visit * Reason Comments Follow Up Left hip * Evaluate & Treat - Unlimited Visits (Within 30 days (routine)) - Authorized Specialty Diagnoses / Procedures Referred By Tam odom Referred To Contact Sports Medicine / Orthopedics Diagnoses Primary osteoarthritis of one hip, left Milton oMreno MD [address] [place] [address] Maria Fernanda Kennedy MD [address] [place] [address] Referral ID Status Reason Start Date Expiration Date Visits Requested Visits Authorized [id number] Authorized Specialty Services Required 06/08/[phone] Encounter Details Date Type Department Care Team (Latest Contact Info) Description 06/22/2023 2:00 PM EST Office Visit Orthopaedics [facility] [address] [place] [address] Maria Fernanda Kennedy MD [address] [place] [address] Primary osteoarthritis of one hip, left* Allergies [...] 04/04/2003 09/05/2014 SPINAL STENOSIS-LUMBAR 11/22/200209/05 DISC DIS [id number]-KQRRIG 11/22/200201/2010 PAIN IN LIMB, RIGHT LEG 11/22/200208/10 AC MAXILLARY SINUSITIS, RIGHT 09/07/2002 01/19/2006 ACUTE URI NOS 09/07/2002 01/19/2006 Nausea 09/07/2002 01/19/2006 Overview: ICD-10 update of inactive term PULSATILE TINNITUS 09/07/200209/05/ 5 BENIGN HYPERTENSION 08/23/2002 03/26/20 09 DISC DIS HYU-GKW-YMDFVA 07/28/200201/09 DIVERTICULOSIS OF COLON 07/28/200208/10 Overview: Colonoscopy [...] presents for follow up hip pain/injury to [facility] Sports Medicine. Alexia Downing is here [...] up in the next couple of months. We will see her back in 1 month for [...] Fernanda Kennedy MD Primary Care Sports Medicine [facility] [address] [facility] [place] [address] documented in this encounter Nursing Notes * Maya Tan MED ASSIST - 06/22/2023 1:56 PM EST Pt presents today for left hip injection, previously injected . Injection started wearing off in February. documented in this encounter Plan of Treatment Upcoming Encounters Date Type Department Care Team (Late st Contact Info) Description 07/27/2023 2:30 PM EDT Office Visit Nephrology [address] [place] [address] Juliette Benjamin PA-C [address] [facility] [place] [address] 07/28/2023 1:30 PM EDT Office Visit Orthopaedics [facility] [address] [facility] [place] [address] Maria Fernanda Kennedy MD [address] [facility] [place] [address] Health Maintenance Due Date Last Done Comments [...] Additional history exists CKD HGB USE SMARTSET 25039 06/08/202406/08, 07/24/2022, 03/19/2020, Additional history exists CKD PHOS USE SMARTSET 94930 06/08/202405/12, 07/24/2022, 03/19/2020, Additional history exists TSH 06/08/2024 06/08/2023, 07/09, 06/12/2021, Additional history exists *BISPHONATE OR OTHER ACCEPTABLE MEDICATION NEEDED FOR OSTEOPOROSIS (REFER TO SMARTSET #1146) Addressed 03/10/2015 (Declined) Overridden w ith the intention of not completing the topic Pneumococcal Vaccine: 65+ Years Completed 03/10/2015, 02/02/2004 VITAMIN D LEVEL ONCE IN A LIFETIME-USE SMARTSET# 19490 Completed 07/24/2022, 03/19/2020, 05/13/2019, Additional history exists [...] 3:18 PM 08/28/2003 3:18 PM Care Teams Circular Gang Saw Operator Relationship Specialty Start Date End Date Milton Moreno MD [address] [place] [address] PCP - General Family Medicine 12/07/17 documented as of this encounter
--- OUTSIDE RECORDS SUMMARY | 2023-08-06 11:21 | External Medical Summary ---
Author Name Unknown Address Unknown Organization K01:[facility] - [address] [facility] [place] [address] Laboratory Report Ordering Provider Test Date Status JESUS GONZALEZ 06/08/2023 15:49:04 Final Observation Date Value Abnormality Reference (Units ) Status Triglyceride 06/08/2023 15:49:04 79 <=174 ( mg/dL) Final Triglyceride Reference Range s (mg/dL):
<150 Acceptable
150-174 Borderline high
175-499 High
>=500 Very high Cholesterol 06/08/2023 15:49:04 156 <200 (mg /dL) Final Total Cholesterol Reference Ranges (mg/dL):
<200 Desirable
200-239 Borderline high
>=240 High HDL 06/08/2023 15:49:04 62 >49 (mg/dL ) Final HDL Cholesterol Reference Ra nges (mg/dL):
>=60 High (Desirable)
<50 Low (Undesirable) For Females
<40 Low (Undesirable) For Males NON-HDL CHOLESTEROL 06/08/2023 15:49:04 94 <=159 (mg/dL) Final Non-HDL Cholesterol Referenc e Range (mg/dL):
<100 Target level for high risk ASCVD patient
<130 Optimal for general population
130-159 Near optimal for general population
160-189 Borderline High
190-219 High
>=220 Very High LDL, (calculated) 06/08/2023 15:49:04 78 <= 129 (mg/dL) Final LDL Cholesterol Reference Ra nges (mg/dL):
<70 Target level for high risk ASCVD patient
<100 Optimal for general population
100-129 Near optimal for general population
130-159 Borderline high
160-189 High
>=190 Very high Performing Location [facility] - [address] [facility] [address]
--- OUTSIDE RECORDS SUMMARY | 2023-08-06 11:21 | External Medical Summary ---
Author Name Unknown Address Unknown Organization K01:[facility] [place] [facility] [address] [place] [address] Laboratory Report Ordering Provider Test Date Status DOYLEDUGGAN 03/30/2023 13:55:53 Final Observation Date Value Abnormality Reference (Units ) Status BUN 03/30/2023 13:55:53 19 6-20 (mg/dL) Final Creatinine 03/30/2023 13:55:53 1.4 Above high normal 0.5-1.0 (mg/dL) Final Glomerular filtration rate/1.73 sq M.predicted [Volume Rate/Area] in Serum, Plasma or Blood by Creatinine-based formula (CKD-EPI) 03/30/2023 13:55:53 36 Below low normal >=60 (mL/min) Final eGFR is calculated based on the CKD-EPI 2020 equation SODIUM 03/30/2023 13:55:53 143 135-146 (m mol/L) Final Potassium 03/30/2023 13:55:53 5.1 3.5-5.1 (m mol/L) Final Cl 03/30/2023 13:55:53 105 98-107 (mm ol/L) Final CO2 03/30/2023 13:55:53 26 22-32 (mmo l/L) Final Anion gap 03/30/2023 13:55:53 12 7-15 (mmol /L) Final Glucose 03/30/2023 13:55:53 97 70-120 (mg /dL) Final Calcium 03/30/2023 13:55:53 9.8 8.4-10.2 ( mg/dL) Final Performing Location [facility] [place] [address] [place] [address]
--- OUTSIDE RECORDS SUMMARY | 2023-08-06 11:21 | External Medical Summary | Summary of Care ---
Author Name Unknown Organization [facility] Address [address] [facility] [address] Phone [phone] Care Team Providers Care Hand I Thermal Cutter Name Role Phone Milton Moreno MD Primary Care Provider Reason for Visit * Reason Onset Date Comments Medication Refill 01/27/2023 Encounter Details Date Type Department Care Team (Late st Contact Info) Description 01/27/2023 Refill [facility] [address] [place] [phone] Milton Moreno MD [address] [place] [address] Hypothyroidism, unspecified type Allergies Active Allergy Reactions Criticality Noted Date Comments Ibandronate Sodium 02/04/2010 Domperidone 04/16/2009 Side effects- bad, vivid dreams, but still taking it Penicillin G 08/25/1997 rash Shellfish-Derived Products 2 Sulfa Antibiotics 08/25/1997 Does not remember documented as of this encounter (statuses as of 05/26/2023) Medications Medication Sig Dispensed Refills Start Date [...] mouth in the morning. 90 Tablet 2 06/23/2022 3 Discontinue d(Refill) Levothyroxine Sodium 75 MCG Oral Tablet (Levoxyl)Indicati ons:Hypothyroidis m, unspecified type TAKE 1 TABLET BY MOUTH ONCE DAILY AT LEAST 30 MINUTES PRIOR TO BREAKFAST/OTHER MEDS 90 Tablet 1 11/21/2022 3 Discontinue d(Refill) fentaNYL 50 MCG/HR Transdermal Patch 72 Hour (Duragesic)Indica tions:Spinal stenosis, lumbar region, without neurogenic claudication Place 1 Patch topically on the skin every 3 days. Apply for pain 10 Patch 0 01/03/2023 3 Discontinue d(Refill) documented as of this encounter (statuses as of 05/26/2023) Active Problems Problem Noted Date Diagnosed Date [...] as of this encounter (statuses as of 05/26/2023) Resolved Problems Problem Noted Date Diagnosed Date [...] 04/04/2003 09/05/2014 SPINAL STENOSIS-LUMBAR 11/22/200209/05 DISC DIS [id number] 11/22/200201/2010 PAIN IN LIMB, RIGHT LEG 11/22/200208/10 AC MAXILLARY SINUSITIS, RIGHT 09/07/2002 01/19/2006 ACUTE URI NOS 09/07/2002 01/19/2006 Nausea 09/07/2002 01/19/2006 Overview: ICD-10 update of inactive term PULSATILE TINNITUS 09/07/200209/05/201 5 BENIGN HYPERTENSION 08/23/2002 03/26/20 09 DISC DIS [id number]-YNOGIH 07/28/200201/09 DIVERTICULOSIS OF COLON 07/28/200208/10 Overview: Colonoscopy 03/19/06--repeat 10 years Chest pain 03/19/2010 Esophageal reflux 09/05/2014 Mixed dyslipidemia 9 Overview: Per Lipid Taxonomy. Irritable bowel syndrome Hypothyroidism 12/01/2011 Carpal tunnel syndrome 09/05 HTN, goal below 140/90 03/06 HTN, goal below 150/90 03/13 HTN, goal below 150/90 06/06 documented as of this encounter (statuses as of 05/26/2023) Immunizations Name Administration Dates Next Due Pneumococcal Conjugate Vacc, 13 Valent (Prevnar) 03/10/2015 Season Influenza, Quad, PF, Adjuvanted, 65+ Yrs, IM (FLUAD) 03/02/2020 Seasonal Influenza, PF, 6 M & above, IM , (FluLaval or Fluzone) 01/24/2019,02/09/2018,02/20/2017 Seasonal Influenza, Quadriva lent Hd (Fluzone Hd) 03/15/2022,03/18/2021 Seasonal Influenza, Quadriva lent, No Preserve, IM [...] encounter Miscellaneous Notes * Telephone Encounter - Veronique Conrad CPhT - 01/27/2023 12:36 PM EDT Pt calling to request Levothyroxine Sodium 75 MCG Oral Tablet (Levoxyl) . Informed pt that RX is available at their pharmacy. Pt verbalized understanding and stated they will check with their pharmacy regarding this medication. Thank you, Veronique Conrad CPhT Tinning Equipment Tender II Centralized Clinical Pharmacy Services (CCPS) (Formerly Telepharmacy) 01/27/2023,12:40 PM documented in this encounter Plan of Treatment Upcoming Encounters Date Type Department Care Team (Late st Contact Info) Description 06/08/2023 2:20 PM EST Office Visit [facility] [address] [place] [phone] Milton Moreno MD [address] [place] [address] 07/20/2023 2:30 PM EDT Office Visit Cardiology, [facility] [address] [place] [address] Octavio Bolivar DO [address] [place] [address] 07/27/2023 2:30 PM EDT Office Visit Nephrology [address] [place] [address] Juliette Benjamin PA-C [address] [facility] [place] [address] Health Maintenance Due Date Last Done Comments [...] Additional history exists CKD HGB USE SMARTSET 72337 07/25/202307/24, 03/19/2020, 05/13/2019, Additional history exists CKD PHOS USE SMARTSET 27500 07/25/202307/09, 03/19/2020, 05/13/2019, Additional history exists TSH 07/25/2023 07/24/2022, 06/2021, 07/03/2020, Additional history exists *BISPHONATE OR OTHER ACCEPTABLE MEDICATION NEEDED FOR OSTEOPOROSIS (REFER TO SMARTSET #1146) Addressed 03/10/2015 (Declined) Overridden w ith the intention of not completing the topic Pneumococcal Vaccine: 65+ Years Completed 03/10/2015, 02/02/2004 VITAMIN D LEVEL ONCE IN A LIFETIME-USE SMARTSET# 96536 Completed 07/24/2022, 03/19/2020, 05/13/2019, Additional history exists [...] as of this encounter Visit Diagnoses Diagnosis Hypothyroidism, unspecified type documented in this encounter Advance Directives Latest Code Status on File Code Status Date Activated Date Inactivated Comments None 08/28/2003 3:18 PM 08/28/2003 3:18 PM Care Teams Hand I Thermal Cutter Relationship Specialty Start Date End Date Milton Moreno MD [address] [facility] [place] [phone] PCP - General Family Medicine 12/07/17 documented as of this encounter
--- OUTSIDE RECORDS SUMMARY | 2023-08-06 11:21 | External Medical Summary ---
Author Name Unknown Address Unknown Organization K01:[facility] [place] - [facility] [address] [facility] [address] Laboratory Report Ordering Provider Test Date Status JESUS GONZALEZ 06/08/2023 15:49:04 Final Observation Date Value Abnormality Reference (Units ) Status WBC, Total 06/08/2023 15:49:04 7.08 4.00-10.80 (K/uL) Final RBC 06/08/2023 15:49:04 4.41 3.85-5.15 (M/uL) Final Hemoglobin 06/08/2023 15:49:04 13.4 12.0-15.3 (g/dL) Final HCT 06/08/2023 15:49:04 39.6 36.0-45.2 (%) Final MCV 06/08/2023 15:49:04 89.8 81.5-97.5 (fL) Final MCH 06/08/2023 15:49:04 30.4 27.0-34.0 (pg) Final MCHC 06/08/2023 15:49:04 33.8 32.0-36.0 (g/dL) Final RDW 06/08/2023 15:49:04 12.7 11.5-15.5 (%) Final Platelets 06/08/2023 15:49:04 234 140-400 (K/uL) Final MPV 06/08/2023 15:49:04 10.0 6.6-11.1 (fL) Final Nucleated erythrocytes/100 leukocytes [Ratio] in Blood by Automated count 06/08/2023 15:49:04 0 <=0 (/100 WBCs) Final Performing Location [facility]ORY [facility] [place] - [address] [place] [address]
--- OUTSIDE RECORDS SUMMARY | 2023-08-06 11:21 | External Medical Summary | Summary of Care ---
Author Name Unknown Organization [facility] Address [address] [facility] [address] Phone [phone] Care Team Providers Care Radio Maintainer Name Role Phone Milton Moreno MD Primary Care Provider [phone] Reason for Visit * Reason Comments Outpatient Testing Encounter Details Date Type Department Care Team (Late st Contact Info) Description 03/30/2023 2:00 PM EST Laboratory Laboratory [address] [place] [phone] [place] [address] HTN, goal below 150/90; Chronic kidney disease, stage 3b (HCC) Allergies Active Allergy Reactions Criticality Noted Date Comments Ibandronate Sodium 02/04/2010 Domperidone 04/16/2009 Side effects- bad, vivid dreams, but still taking it Penicillin G 08/25/1997 rash Shellfish-Derived Products 2 Sulfa Antibiotics 08/25/1997 Does not remember documented as of this encounter (statuses as of 03/30/2023) Medications Medication Sig Dispensed Refills Start Date [...] days. Apply for pain 10 Patch 0 03/06/2023 Active documented as of this encounter (statuses as of 03/30/2023) Active Problems Problem Noted Date Diagnosed Date [...] as of this encounter (statuses as of 03/30/2023) Resolved Problems Problem Noted Date Diagnosed Date [...] 04/04/2003 09/05/2014 SPINAL STENOSIS-LUMBAR 11/22/200209/05 DISC DIS [id number]-VAK-RITDPD 11/22/200201/2010 PAIN IN LIMB, RIGHT LEG 11/22/200208/10 AC MAXILLARY SINUSITIS, RIGHT 09/07/2002 01/19/2006 ACUTE URI NOS 09/07/2002 01/19/2006 Nausea 09/07/2002 01/19/2006 Overview: ICD-10 update of inactive term PULSATILE TINNITUS 09/07/200209/05/201 5 BENIGN HYPERTENSION 08/23/2002 03/26/20 09 DISC DIS [id number]-KFG-MIBSCV 07/28/200201/09 DIVERTICULOSIS OF COLON 07/28/200208/10 Overview: Colonoscopy 03/19/06--repeat 10 years Chest pain 03/19/2010 Esophageal reflux 09/05/2014 Mixed dyslipidemia 9 Overview: Per Lipid Taxonomy. Irritable bowel syndrome Hypothyroidism 12/01/2011 Carpal tunnel syndrome 09/05 HTN, goal below 140/90 03/06 HTN, goal below 150/90 03/13 HTN, goal below 150/90 06/06 documented as of this encounter (statuses as of 03/30/2023) Immunizations Name Administration Dates Next Due Pneumococcal Conjugate Vacc, 13 Valent (Prevnar) 03/10/2015 SEASONAL INFLUENZA, PF, 6 M & Above, IM , (FLULAVAL or FLUZONE) 01/24/2019,02/09/2018,02/20/2017 Season Influenza, Quad, PF, Adjuvanted, 65+ Yrs, IM (FLUAD) 03/02/2020 Seasonal Influenza, Quadriva lent Hd (Fluzone Hd) [...] Care Team (Late st Contact Info) Description 03/30/2023 2:20 PM EST Immunization Ancillary [facility] [address] [place] [address] [place] [address] [place] [address] Arrived 06/08/2023 2:20 PM EST Office Visit [facility] [address] [facility] [place] [address] Milton Moreno MD [address] [place] [facility] [place] [facility] [place] [address] 07/20/2023 2:30 PM EDT Office Visit Cardiology, [facility] [address] [facility] [place] [address] Octavio Bolivar DO [address] [place] [address] 07/27/2023 2:30 PM EDT Office Visit Nephrology [address] [place] [address] Juliette Benjamin PA-C [address] [facility], [place] [address] Pending Results Name Type Priority Associated Diagnoses Date /Time BASIC METABOLIC PANEL Lab Routine HTN, goal below 150/90 03/30/2023 1:55 PM EST Health Maintenance Due Date Last Done Comments DXA Scan 10/08/2018 10/08/2016, 08/09, 02/24/2012, Additional history exists Zoster Vaccines (3 of 3) 12/20/2018 10/25/2018, 01/2012 DTaP,Tdap,and Td Vaccines (2 - Td or Tdap) 12/11/2022 12/11/2012, 02/09/2000 Mammogram 12/20/2022 12/20/2021, 07/09, 07/22/2019, Additional history exists COVID-19 Vaccine (3 - 2022- season) 2023 09/06/2020, 08/16/2020 Depression Screening 06/23/2023 06/23/2022, 02/20/2017, 03/10/2015 (Discussed) Albumin/Creatinine Ratio 07/25/2023 023, 03/19/2020, 08/31/2017, Additional history exists CKD HGB USE SMARTSET 70958 07/25/202307/24, 03/19/2020, 05/13/2019, Additional history exists CKD PHOS USE SMARTSET 55221 07/25/202307/09, 03/19/2020, 05/13/2019, Additional history exists TSH 07/25/2023 07/24/2022, 06/2021, 07/03/2020, Additional history exists *BISPHONATE OR OTHER ACCEPTABLE MEDICATION NEEDED FOR OSTEOPOROSIS (REFER TO SMARTSET #1146) Addressed 03/10/2015 (Declined) Overridden w ith the intention of not completing the topic Pneumococcal Vaccine: 65+ Years Completed 03/10/2015, 02/02/2004 VITAMIN D LEVEL ONCE IN A LIFETIME-USE SMARTSET# [id number] Completed 07/24/2022, 03/19/2020, 05/13/2019, Additional history exists [...] as of this encounter Visit Diagnoses Diagnosis HTN, goal below 150/90 Chronic kidney disease, stage 3b (HCC) documented in this encounter Advance Directives Latest Code Status on File Code Status Date Activated Date Inactivated Comments None 08/28/2003 3:18 PM 08/28/2003 3:18 PM Care Teams Radio Maintainer Relationship Specialty Start Date End Date Milton Moreno MD [address] [place] [facility] [place] [address] PCP - General Family Medicine 12/07/17 documented as of this encounter
--- OUTSIDE RECORDS SUMMARY | 2023-08-06 11:21 | External Medical Summary | Summary of Care ---
Author Name Unknown Organization [facility] Address [address] [place] [address] Phone [phone] Care Team Providers Care Holiday Detector Operator Name Role Phone Carlos Moreno MD Primary Care Provider Reason for Referral * Medication Prior Authorization - Closed Specialty Diagnoses / Procedures Referred By Contac t Referred To Contact Diagnoses Spinal stenosis, lumbar region, without neurogenic claudication Carlos Moreno MD [address] [place] [address] Referral ID Status Reason Start Date Expiration Date Visits Re quested Visits Authorized [id number] Closed [phone] Reason for Visit * Reason Onset Date Comments Medication Refill 04/06/2023 Encounter Details Date Type Department Care Team (Late st Contact Info) Description 04/06/2023 Refill [facility] [address] [place] [phone] Carlos Moreno MD [address] [place] [address] Spinal stenosis, lumbar region, without neurogenic claudication Allergies Active Allergy Reactions Criticality Noted Date Comments Ibandronate Sodium 02/04/2010 Domperidone 04/16/2009 Side effects- bad, vivid dreams, but still taking it Penicillin G 08/25/1997 rash Shellfish-Derived Products 2 Sulfa Antibiotics 08/25/1997 Does not remember documented as of this encounter (statuses as of 04/07/2023) Medications Medication Sig Dispensed Refills Start Date [...] days. Apply for pain 10 Patch 0 04/07/2023 Active fentaNYL 50 MCG/HR Transdermal Patch 72 Hour (Duragesic)Indica tions:Spinal stenosis, lumbar region, without neurogenic claudication Place 1 Patch topically on the skin every 3 days. Apply for pain 10 Patch 0 03/06/2023 3 Discontinue d(Refill) documented as of this encounter (statuses as of 04/07/2023) Active Problems Problem Noted Date Diagnosed Date [...] as of this encounter (statuses as of 04/07/2023) Resolved Problems Problem Noted Date Diagnosed Date [...] 04/04/2003 09/05/2014 SPINAL STENOSIS-LUMBAR 11/22/200209/05 DISC DIS QPS-ZDR-FPUSKX 11/22/200201/2010 PAIN IN LIMB, RIGHT LEG 11/22/200208/10 AC MAXILLARY SINUSITIS, RIGHT 09/07/2002 01/19/2006 ACUTE URI NOS 09/07/2002 01/19/2006 Nausea 09/07/2002 01/19/2006 Overview: ICD-10 update of inactive term PULSATILE TINNITUS 09/07/200209/05/ 5 BENIGN HYPERTENSION 08/23/2002 03/26/20 09 DISC DIS [id number]-RAD-UQEEKN 07/28/200201/09 DIVERTICULOSIS OF COLON 07/28/200208/10 Overview: Colonoscopy 03/19/06--repeat 10 years Chest pain 03/19/2010 Esophageal reflux 09/05/2014 Mixed dyslipidemia 9 Overview: Per Lipid Taxonomy. Irritable bowel syndrome Hypothyroidism 12/01/2011 Carpal tunnel syndrome 09/05 HTN, goal below 140/90 03/06 HTN, goal below 150/90 03/13 HTN, goal below 150/90 06/06 documented as of this encounter (statuses as of 04/07/2023) Immunizations Name Administration Dates Next Due Pneumococcal [...] encounter Miscellaneous Notes * Telephone Encounter - Carlos Moreno MD - 04/07/2023 6:11 PM ESTSigned Prescriptions: Disp Refills fentaNYL 50 MCG/HR Transdermal Patch 72 Ho*10 Pat*0 Sig: Place 1 Patch topically on the skin every 3 days. Apply for pain Authorizing Provider: CARLOS MORENO * Telephone Encounter - Lyla Rivera CPhT - 04/07/2023 5:41 PM EST Patient is calling to check the status of refill request. Aware that this is out for provider approval. Thank you, Lyla Rivera Business Relationship Manager Centralized Clinical Pharmacy Services (CCPS) (Formerly Telepharmacy) 04/07/2023,5:42 PM * Telephone Encounter - Aster Pantoja [facility] - 04/07/2023 9:50 AM ESTPending Prescriptions: Disp Refills fentaNYL 50 MCG/HR Transdermal Patch 72 Ho*10 Pat*0 Sig: Place 1 Patch topically on the skin every 3 days. Apply for pain * Telephone Encounter - Aster Pantoja [facility] - 04/07/2023 9:50 AM EST I have reviewed the patients controlled substance dispensing history in the Prescription Drug Monitoring Program in compliance with the [facility] regulations before prescribing a controlled substance. PDMP checked on 04/07/2023. Pending Prescriptions: Disp Refills fentaNYL 50 MCG/HR Transdermal Patch 72 H*10 Pat*0 Sig: Place 1 Patch topically on the skin every 3 days. Apply for pain Last Visit: 02/02/2023 (in office), Visit date not found (telemedicine) Next Visit: 06/08/2023 Date medication was last filled: 03/06/23 Date medication is due for refill: 04/04/23 Pharmacy: [id number] [id number] [facility] Is this request for a controlled substance? Yes and Urine Drug Screen Not completed Toxicology [...] in Results Review. Please approve if appropriate. Thank You, Aster Pantoja [facility] Clinical Pharmacist Centralized Clinical Pharmacy Services (CCPS) (formerly Telepharmacy) [phone] 04/07/2023, 9:50 AM * Telephone Encounter - Allison Lord PHARM Tech - 04/06/2023 12:46 PM EST Did you pend patient's preferred pharmacy and medication before forwarding?yes Pharmacy: [id number] [id number] [facility] Pending Prescriptions: Disp Refills fentaNYL 50 MCG/HR Transdermal Patch 72 H*10 Pat*0 Sig: Place 1 Patch topically on the skin every 3 days. Apply for pain Last Visit: 02/02/2023 (in office), Visit date not found (telemedicine) Next Visit: 06/08/2023 If no future appointments scheduled, and last appointment is greater than a year ago, please schedule patient for a follow-up appointment Last date the medication was ordered: 03/06 Is this request for a controlled substance?Yes, What was the last refill date 03/06 w/ quantity 10 and dosage 50 mcg and Urine Drug Screen Not completed Urine Drug Screen: Results for orders [...] Results Component Value Date/Time CREAT 1.4 (H) 03/30/2023 01:55 PM CREAT 1.4 (H) 03/19/2020 11:32 AM POTASSIUM 5.1 03/30/2023 01:55 PM POTASSIUM 4.2 03/19/2020 11:32 AM TSH 1.55 07/24/2022 12:57 PM TSH 0.88 12/30/2019 01:48 PM LDLCALC 83 07/24/2022 12:57 PM LDLCALC 76 05/16/2019 11:50 AM LDLDIRECT NOT APPLICABLE 05/16/2019 11:50 AM LDLDIRECT 96 02/20/2016 04:10 PM ALT 13 07/24/2022 12:57 PM ALT 12 05/16/2019 11:50 AM documented in this encounter Plan of Treatment Upcoming Encounters Date Type Department Care Team (Late st Contact Info) Description 06/08/2023 2:20 PM EST Office Visit [facility] [address] [place] [facility] [place] [address] Carlos Moreno MD [address] [place] [address] 07/20/2023 2:30 PM EDT Office Visit Cardiology, [facility] [address] [place] [address] Octavio Bolivar DO [address] [place] [address] 07/27/2023 2:30 PM EDT Office Visit Nephrology [address] [place] [address] Juliette Benjamin PA-C [address] [facility] [place], [place] [address] Health Maintenance Due Date Last Done Comments [...] Additional history exists CKD HGB USE SMARTSET 25307 07/25/202307/24, 03/19/2020, 05/13/2019, Additional history exists CKD PHOS USE SMARTSET 45349 07/25/202307/09, 03/19/2020, 05/13/2019, Additional history exists TSH 07/25/2023 07/24/2022, 06/2021, 07/03/2020, Additional history exists *BISPHONATE OR OTHER ACCEPTABLE MEDICATION NEEDED FOR OSTEOPOROSIS (REFER TO SMARTSET #1141) Addressed 03/10/2015 (Declined) Overridden w ith the intention of not completing the topic Pneumococcal Vaccine: 65+ Years Completed 03/10/2015, 02/02/2004 VITAMIN D LEVEL ONCE IN A LIFETIME-USE SMARTSET# 46619 Completed 07/24/2022, 03/19/2020, 05/13/2019, Additional history exists [...] 3:18 PM 08/28/2003 3:18 PM Care Teams Holiday Detector Operator Relationship Specialty Start Date End Date Carlos Moreno MD [address] [place] [address] PCP - General Family Medicine 12/07/17 documented as of this encounter
--- OUTSIDE RECORDS SUMMARY | 2023-08-06 11:21 | External Medical Summary ---
Author Name Unknown Address Unknown Organization K01:[facility] [place] [address] [facility] [address] Laboratory Report Ordering Provider Test Date Status THOR GONZALEZVIOLA 06/08/2023 15:49:04 Final Observation Date Value Abnormality Reference (Units ) Status TSH 06/08/2023 15:49:04 0.63 0.27-4.20 (uIU/mL) Final Performing Location [facility] [place] [address] [facility] [address]
--- OUTSIDE RECORDS SUMMARY | 2023-08-06 11:21 | External Medical Summary | Summary of Care ---
Author Name Unknown Organization [facility] Address [address] [facility] [place] [address] Phone [phone] Care Team Providers Care Forestry Professor Name Role Phone Milton Moreno MD Primary Care Provider [phone] Encounter Details Date Type Department Care Team (Late st Contact Info) Description 03/30/2023 2:20 PM EST Immunization Ancillary [address] [place] [address] [place] [address] [place] [address] Arrived Allergies Active Allergy Reactions Criticality Noted Date [...] 04/04/2003 09/05/2014 SPINAL STENOSIS-LUMBAR 11/22/200209/05 DISC DIS [id number] 11/22/200201/2010 PAIN IN LIMB, RIGHT LEG 11/22/200208/10 AC MAXILLARY SINUSITIS, RIGHT 09/07/2002 01/19/2006 ACUTE URI NOS 09/07/2002 01/19/2006 Nausea 09/07/2002 01/19/2006 Overview: ICD-10 update of inactive term PULSATILE TINNITUS 09/07/200209/05/201 5 BENIGN HYPERTENSION 08/23/2002 03/26/20 09 DISC DIS [id number]-JHX-MXKKZW 07/28/200201/09 DIVERTICULOSIS OF COLON 07/28/200208/10 Overview: Colonoscopy [...] money to buy more. Never true 06/23/19 Within the past 12 months, t he [...] Description 06/08/2023 2:20 PM EST Office Visit [facility] [address] [place] [facility] [place] [phone] Milton [facility]no [facility] [address] [facility] [address] 07/20/2023 2:30 PM EDT Office Visit Cardiology, [facility] [address] [place] [address] Octavio Bolivar DO [address] [place] [address] 07/27/2023 2:30 PM EDT Office Visit Nephrology [address] [place] [address] Juliette Benjamin PA-C [address] [place] [address] Health Maintenance Due Date Last Done Comments [...] Additional history exists CKD HGB USE SMARTSET 03391 07/25/202307/24, 03/19/2020, 05/13/2019, Additional history exists CKD PHOS USE SMARTSET 41974 07/25/202307/09, 03/19/2020, 05/13/2019, Additional history exists TSH 07/25/2023 07/24/2022, 06/2021, 07/03/2020, Additional history exists *BISPHONATE OR OTHER ACCEPTABLE MEDICATION NEEDED FOR OSTEOPOROSIS (REFER TO SMARTSET #1146) Addressed 03/10/2015 (Declined) Overridden w ith the intention of not completing the topic Pneumococcal Vaccine: 65+ Years Completed 03/10/2015, 02/02/2004 VITAMIN D LEVEL ONCE IN A LIFETIME-USE SMARTSET# 61307 Completed 07/24/2022, 03/19/2020, 05/13/2019, Additional history exists [...] 3:18 PM 08/28/2003 3:18 PM Care Teams Forestry Professor Relationship Specialty Start Date End Date Milton Moreno MD [address] [place] [address] PCP - General Family Medicine 12/07/17 documented as of this encounter
--- OUTSIDE RECORDS SUMMARY | 2023-08-06 11:21 | External Medical Summary ---
Author Name Unknown Address Unknown Organization [id number]:[facility] [place] - [address] [place] [address] Laboratory Report Ordering Provider Test Date Status JHOAN HOLLIS 06/08/2023 15:49:04 Final Observation Date Value Abnormality Reference (Units ) Status MYCODE SPECIMEN-SST 06/08/2023 15:49:04 Freezing of extracted DNA, whole blood and/or serum. Final Performing Location [facility] [place] - [address] [place] [address]
--- OUTSIDE RECORDS SUMMARY | 2023-08-06 11:21 | External Medical Summary | Summary of Care ---
Author Name Unknown Organization [facility] Address [address] [place] [address] Phone [phone] Care Team Providers Care Cloth Bin Packer Name Role Phone Carlos Moreno MD Primary Care Provider [phone] Reason for Referral * Medication Prior Authorization - Closed Specialty Diagnoses / Procedures Referred By Contac t Referred To Contact Diagnoses Spinal stenosis, lumbar region, without neurogenic claudication Carlos Moreno MD [address] [place] [address] Referral ID Status Reason Start Date Expiration Date Visits Re quested Visits Authorized [id number] Closed [phone] Reason for Visit * Reason Onset Date Comments Medication Refill 05/05/2023 Encounter Details Date Type Department Care Team (Late st Contact Info) Description 05/05/2023 Refill [facility] [address] [place] [facility] [place] [phone] Carlos Moreno MD [address] [place], [place] [id number] Spinal stenosis, lumbar region, without neurogenic claudication Allergies Active Allergy Reactions Criticality Noted Date Comments Ibandronate Sodium 02/04/2010 Domperidone 04/16/2009 Side effects- bad, vivid dreams, but still taking it Penicillin G 08/25/1997 rash Shellfish-Derived Products 2 Sulfa Antibiotics 08/25/1997 Does not remember documented as of this encounter (statuses as of 05/06/2023) Medications Medication Sig Dispensed Refills Start Date [...] days. Apply for pain 10 Patch 0 05/06/2023 Active fentaNYL 50 MCG/HR Transdermal Patch 72 Hour (Duragesic)Indica tions:Spinal stenosis, lumbar region, without neurogenic claudication Place 1 Patch topically on the skin every 3 days. Apply for pain 10 Patch 0 04/07/2023 3 Discontinue d(Refill) documented as of this encounter (statuses as of 05/06/2023) Active Problems Problem Noted Date Diagnosed Date [...] as of this encounter (statuses as of 05/06/2023) Resolved Problems Problem Noted Date Diagnosed Date [...] 04/04/2003 09/05/2014 SPINAL STENOSIS-LUMBAR 11/22/200209/05 DISC DIS [id number] 11/22/200201/2010 PAIN IN LIMB, RIGHT LEG 11/22/200208/10 AC MAXILLARY SINUSITIS, RIGHT 09/07/2002 01/19/2006 ACUTE URI NOS 09/07/2002 01/19/2006 Nausea 09/07/2002 01/19/2006 Overview: ICD-10 update of inactive term PULSATILE TINNITUS 09/07/200209/05/ 5 BENIGN HYPERTENSION 08/23/2002 03/26/20 09 DISC DIS [id number] 07/28/200201/09 DIVERTICULOSIS OF COLON 07/28/200208/10 Overview: Colonoscopy 03/19/06--repeat 10 years Chest pain 03/19/2010 Esophageal reflux 09/05/2014 Mixed dyslipidemia 9 Overview: Per Lipid Taxonomy. Irritable bowel syndrome Hypothyroidism 12/01/2011 Carpal tunnel syndrome 09/05 HTN, goal below 140/90 03/06 HTN, goal below 150/90 03/13 HTN, goal below 150/90 06/06 documented as of this encounter (statuses as of 05/06/2023) Immunizations Name Administration Dates Next Due Pneumococcal [...] Telephone Encounter - Carlos Moreno MD - 05/06/2023 11:07 AM ESTSigned Prescriptions: Disp Refills fentaNYL 50 MCG/HR Transdermal Patch 72 Ho*10 Pat*0 Sig: Place 1 Patch topically on the skin every 3 days. Apply for pain Authorizing Provider: CARLOS MORENO * Telephone Encounter - Maricruz Ulrich [facility] - 05/06/2023 11:06 AM ESTPending Prescriptions: Disp Refills fentaNYL 50 MCG/HR Transdermal Patch 72 Ho*10 Pat*0 Sig: Place 1 Patch topically on the skin every 3 days. Apply for pain * Telephone Encounter - Maricruz Ulrich [facility] - 05/06/2023 11:05 AM EST I have reviewed the patients controlled substance dispensing history in the Prescription Drug Monitoring Program in compliance with the [facility] regulations before prescribing a controlled substance. PDMP checked on 05/06/2023. Pending Prescriptions: Disp Refills fentaNYL 50 MCG/HR Transdermal Patch 72 H*10 Pat*0 Sig: Place 1 Patch topically on the skin every 3 days. Apply for pain Last Visit: 02/02/2023 (in office), Visit date not found (telemedicine) Next Visit: 06/08/2023 Date medication was last filled: 04/07 Date medication is due for refill: 05/06 Pharmacy: [id number] [id number] [facility] Is this request for a [...] Results Review. Please approve if appropriate. Thank you, Maricruz Ulrich, PharmD Clinical Pharmacist Centralized Clinical Pharmacy Services (CCPS) (formerly Telepharmacy) [phone] 05/06/2023, 11:05 AM * Telephone Encounter - Kati Lima CPhT - 05/05/2023 1:09 PM EST Did you pend patient's preferred pharmacy and medication before forwarding?yes Pharmacy: [id number] [id number] [facility] Pending Prescriptions: Disp Refills fentaNYL [...] appointment Last date the medication was ordered: 04/07/2023 Is this request for a controlled substance?Yes, What was the last refill date 04/07/2023 w/ quantity 10 and dosage 50 and Urine Drug Screen was completed Urine [...] Description 06/08/2023 2:20 PM EST Office Visit [place] [address] [place] [facility] [place] [address] Carlos Moreno MD [address] [place] [address] 07/20/2023 2:30 PM EDT Office Visit Cardiology, [facility] [address] [place] [address] Octavio Bolivar, [address] [place] [address] 07/27/2023 2:30 PM EDT Office Visit Nephrology [address] [place] [address] Juliette Benjamin PA-C [address] [place] [address] Health Maintenance Due Date Last Done Comments [...] Additional history exists CKD HGB USE SMARTSET 96555 07/25/202307/24, 03/19/2020, 05/13/2019, Additional history exists CKD PHOS USE SMARTSET 14099 07/25/202307/09, 03/19/2020, 05/13/2019, Additional history exists TSH 07/25/2023 07/24/2022, 06/2021, 07/03/2020, Additional history exists *BISPHONATE OR OTHER ACCEPTABLE MEDICATION NEEDED FOR OSTEOPOROSIS (REFER TO SMARTSET #1146) Addressed 03/10/2015 (Declined) Overridden w ith the intention of not completing the topic Pneumococcal Vaccine: 65+ Years Completed 03/10/2015, 02/02/2004 VITAMIN D LEVEL ONCE IN A LIFETIME-USE SMARTSET# 14384 Completed 07/24/2022, 03/19/2020, 05/13/2019, Additional history exists [...] 3:18 PM 08/28/2003 3:18 PM Care Teams Cloth Bin Packer Relationship Specialty Start Date End Date Carlos Moreno MD [address] [place] [address] PCP - General Family Medicine 12/07/17 documented as of this encounter
--- OUTSIDE RECORDS SUMMARY | 2023-08-06 11:21 | External Medical Summary | Summary of Care ---
Author Name Unknown Organization [facility] Address [address] [place] [facility] [place] [address] Phone [phone] Care Team Providers Care Lead Game Designer Name Role Phone Carlos Moreno MD Primary Care Provider Reason for Visit * Reason Onset Date Comments Medication Refill 06/04/2023 Encounter Details Date Type Department Care Team (Late st Contact Info) Description 06/04/2023 Refill [facility] [address] [place] [address] Carlos Moreno MD [address] [place] [address] Spinal stenosis, lumbar region, without neurogenic claudication Allergies Active Allergy Reactions Criticality Noted Date Comments Ibandronate Sodium 02/04/2010 Domperidone 04/16/2009 Side effects- bad, vivid dreams, but still taking it Penicillin G 08/25/1997 rash Shellfish-Derived Products 2 Sulfa Antibiotics 08/25/1997 Does not remember documented as of this encounter (statuses as of 06/05/2023) Medications Medication Sig Dispensed Refills Start Date [...] Cholecalciferol (VITAMIN D) 50 MCG (1999 UT) CapsuleIndication s:takes at lunch Take 2,000 [...] for pain 10 Patch 0 06/05/2023 Active fentaNYL 50 MCG/HR Transdermal Patch 72 Hour (Duragesic)Indica tions:Spinal stenosis, lumbar region, without neurogenic claudication Place 1 Patch topically on the skin every 3 days. Apply for pain 10 Patch 0 05/06/2023 Discontinue d(Refill) documented as of this encounter (statuses as of 06/05/2023) Active Problems Problem Noted Date Diagnosed Date [...] as of this encounter (statuses as of 06/05/2023) Resolved Problems Problem Noted Date Diagnosed Date [...] 04/04/2003 09/05/2014 SPINAL STENOSIS-LUMBAR 11/22/200209/05 DISC DIS [id number] 11/22/200201/2010 PAIN IN LIMB, RIGHT LEG 11/22/200208/10 AC MAXILLARY SINUSITIS, RIGHT 09/07/2002 01/19/2006 ACUTE URI NOS 09/07/2002 01/19/2006 Nausea 09/07/2002 01/19/2006 Overview: ICD-10 update of inactive term PULSATILE TINNITUS 09/07/2002 5 BENIGN HYPERTENSION 08/23/2002 03/26/20 09 DISC DIS JRS-UDX-CAGJVF 07/28/200201/09 DIVERTICULOSIS OF COLON 07/28/200208/10 Overview: Colonoscopy 03/19/06--repeat 10 years Chest pain 03/19/2010 Esophageal reflux 09/05/2014 Mixed dyslipidemia 9 Overview: Per Lipid Taxonomy. Irritable bowel syndrome Hypothyroidism 12/01/2011 Carpal tunnel syndrome 09/05 HTN, goal below 140/90 03/06 HTN, goal below 150/90 03/13 HTN, goal below 150/90 06/06 documented as of this encounter (statuses as of 06/05/2023) Immunizations Name Administration Dates Next Due Pneumococcal [...] Telephone Encounter - Carlos Moreno MD - 06/05/2023 7:31 AM ESTSigned Prescriptions: Disp Refills fentaNYL 50 MCG/HR Transdermal Patch 72 Ho*10 Pat*0 Sig: Place 1 Patch topically on the skin every 3 days. Apply for pain Authorizing Provider: CARLOS MORENO * Telephone Encounter - Claire Henry [facility] - 06/05/2023 6:49 AM ESTPending Prescriptions: Disp Refills fentaNYL 50 MCG/HR Transdermal Patch 72 Ho*10 Pat*0 Sig: Place 1 Patch topically on the skin every 3 days. Apply for pain * Telephone Encounter - Claire Henry [facility] - 06/05/2023 6:49 AM EST I have reviewed the patients controlled substance dispensing history in the Prescription Drug Monitoring Program in compliance with the [facility] regulations before prescribing a controlled substance. PDMP checked on 06/05/2023. Pending Prescriptions: Disp Refills fentaNYL 50 MCG/HR Transdermal Patch 72 H*10 Pat*0 Sig: Place 1 Patch topically on the skin every 3 days. Apply for pain Last Visit: 02/02/2023 (in office), Visit date not found (telemedicine) Next Visit: 06/08/2023 Date medication was last filled: 05/06/23 Date medication is due for refill: 06/04/23 Pharmacy: [id number]- [place] Is this request for a controlled substance? [...] Results Review. Please approve if appropriate. Thanks, Claire Henry Clinical Pharmacist Centralized Clinical Pharmacy Services (CCPS) (Formerly Telepharmacy) [phone] 06/05/2023, 6:49 AM * Telephone Encounter - Arely Felipe PHARM Tech - 06/04/2023 10:40 AM EST Did you pend patient's preferred pharmacy and medication before forwarding?yes Pharmacy: [id number] [id number] [facility] Pending Prescriptions: Disp Refills fentaNYL 50 [...] appointment Last date the medication was ordered: 05/06/2023 Is this request for a controlled substance?Yes, What was the last refill date 05/06/2023 w/ quantity 10 and dosage 50 mcg and Urine Drug Screen was completed Urine [...] Description 06/08/2023 2:20 PM EST [facility] [address] [facility] [phone] Carlos [facility] [address] [facility] [address] 07/20/2023 2:30 PM EDT Office Visit Cardiology, [facility] [address] [facility] [place] [address] Octavio Bolivar DO [address] [place] [address] 07/27/2023 2:30 PM EDT Office Visit Nephrology [address] [place] [address] ZeJuliette mauricio PA-C [address] [place] [address] Health Maintenance Due Date Last Done Comments [...] Additional history exists CKD HGB USE SMARTSET 46915 07/25/202307/24, 03/19/2020, 05/13/2019, Additional history exists CKD PHOS USE SMARTSET 43140 07/25/202307/09, 03/19/2020, 05/13/2019, Additional history exists TSH 07/25/2023 07/24/2022, 06/2021, 07/03/2020, Additional history exists *BISPHONATE OR OTHER ACCEPTABLE MEDICATION NEEDED FOR OSTEOPOROSIS (REFER TO SMARTSET #1146) Addressed 03/10/2015 (Declined) Overridden w ith the intention of not completing the topic Pneumococcal Vaccine: 65+ Years Completed 03/10/2015, 02/02/2004 VITAMIN D LEVEL ONCE IN A LIFETIME-USE SMARTSET# 82834 Completed 07/24/2022, 03/19/2020, 05/13/2019, Additional history exists [...] 3:18 PM 08/28/2003 3:18 PM Care Teams Lead Game Designer Relationship Specialty Start Date End Date Carlos Moreno MD [address] [place] [address] PCP - General Family Medicine 12/07/17 documented as of this encounter
--- OUTSIDE RECORDS SUMMARY | 2023-08-06 11:22 | External Medical Summary | Summary of Care ---
Author Name Unknown Organization [facility] Address [address] [place] [address] Phone [phone] Care Team Providers Care Mobile Lab Technician Name Role Phone Carlos Moreno MD Primary Care Provider [phone] Reason for Referral * Medication Prior Authorization - Closed Specialty Diagnoses / Procedures Referred By Contac t Referred To Contact Diagnoses Spinal stenosis, lumbar region, without neurogenic claudication Carlos Moreno MD [address] [place] [address] Referral ID Status Reason Start Date Expiration Date Visits Re quested Visits Authorized [id number] Closed [phone] Reason for Visit * Reason Onset Date Comments Medication Refill 03/05/2023 Encounter Details Date Type Department Care Team (Late st Contact Info) Description 03/05/[address] [facility] [address] [place] [phone] Carlos Moreno MD [address] [place] [address] Spinal stenosis, lumbar region, without neurogenic claudication Allergies Active Allergy Reactions Criticality Noted Date Comments Ibandronate Sodium 02/04/2010 Domperidone 04/16/2009 Side effects- bad, vivid dreams, but still taking it Penicillin G 08/25/1997 rash Shellfish-Derived Products 2 Sulfa Antibiotics 08/25/1997 Does not remember documented as of this encounter (statuses as of 03/06/2023) Medications Medication Sig Dispensed Refills Start Date [...] for pain 10 Patch 0 03/06/2023 Active fentaNYL 50 MCG/HR Transdermal Patch 72 Hour (Duragesic)Indica tions:Spinal stenosis, lumbar region, without neurogenic claudication Place 1 Patch topically on the skin every 3 days. Apply for pain 10 Patch 0 02/02/2023 3 Discontinue d(Refill) documented as of this encounter (statuses as of 03/06/2023) Active Problems Problem Noted Date Diagnosed Date [...] as of this encounter (statuses as of 03/06/2023) Resolved Problems Problem Noted Date Diagnosed Date [...] 04/04/2003 09/05/2014 SPINAL STENOSIS-LUMBAR 11/22/200209/05 DISC DIS ZMP-HSR-[id number] 11/22/200201/2010 PAIN IN LIMB, RIGHT LEG 11/22/200208/10 AC MAXILLARY SINUSITIS, RIGHT 09/07/2002 01/19/2006 ACUTE URI NOS 09/07/2002 01/19/2006 Nausea 09/07/2002 01/19/2006 Overview: ICD-10 update of inactive term PULSATILE TINNITUS 09/07/200209/05/ 5 BENIGN HYPERTENSION 08/23/2002 03/26/20 09 DISC DIS [id number] 07/28/200201/09 DIVERTICULOSIS OF COLON 07/28/200208/10 Overview: Colonoscopy 03/19/06--repeat 10 years Chest pain 03/19/2010 Esophageal reflux 09/05/2014 Mixed dyslipidemia 9 Overview: Per Lipid Taxonomy. Irritable bowel syndrome Hypothyroidism 12/01/2011 Carpal tunnel syndrome 09/05 HTN, goal below 140/90 03/06 HTN, goal below 150/90 03/13 HTN, goal below 150/90 06/06 documented as of this encounter (statuses as of 03/06/2023) Immunizations Name Administration Dates Next Due Pneumococcal [...] Telephone Encounter - Carlos Moreno MD - 03/06/2023 1:47 PM EDTSigned Prescriptions: Disp Refills fentaNYL 50 MCG/HR Transdermal Patch 72 Ho*10 Pat*0 Sig: Place 1 Patch topically on the skin every 3 days. Apply for pain Authorizing Provider: CARLOS MORENO * Telephone Encounter - Nancy Herrera [facility] - 03/06/2023 8:12 AM EDT Pending Prescriptions: Disp Refills fentaNYL 50 MCG/HR Transdermal Patch 72 Ho*10 Pat*0 Sig: Place 1 Patch topically on the skin every 3 days. Apply for pain * Telephone Encounter - Nancy Herrera [facility] - 03/06/2023 8:12 AM EDT I have reviewed the patients controlled substance dispensing history in the Prescription Drug Monitoring Program in compliance with the [facility] regulations before prescribing a controlled substance. PDMP checked on 03/06/2023. Pending Prescriptions: Disp Refills fentaNYL 50 MCG/HR Transdermal Patch 72 H*10 Pat*0 Sig: Place 1 Patch topically on the skin every 3 days. Apply for pain Last Visit: 02/02/2023 (in office), Visit date not found (telemedicine) Next Visit: 06/08/2023 Date medication was last filled: 02/02/23 Date medication is due for refill: 03/03/23 Pharmacy: [id number] [id number] [facility] Is this request for a controlled [...] Review. Please approve if appropriate. Thank you, Nancy Herrera PharmD Clinical Pharmacist Centralized Clinical Pharmacy Services (CCPS) (Formerly Telepharmacy) [phone] 03/06/2023, 8:12 AM * Telephone Encounter - Brayan Franklin PHARM Tech - 03/05/2023 2:44 PM EDT Did you pend patient's preferred pharmacy and medication before forwarding?yes Pharmacy: [id number] [id number] [facility] Pending Prescriptions: Disp Refills fentaNYL 50 [...] appointment Last date the medication was ordered: 02/02/2023 Is this request for a controlled substance?Yes, What was the last refill date 02/02/2023 w/ pacthes and dosage 50 mcg / hr and Urine Drug Screen Not completed Urine [...] Labs: Lab Results Component Value Date/Time CREAT 1.3 (H) 01/23/2023 12:54 PM CREAT 1.4 (H) 03/19/2020 11:32 AM POTASSIUM 5.1 01/23/2023 12:54 PM POTASSIUM 4.2 03/19/2020 11:32 AM TSH [...] Description 06/08/2023 2:20 PM EST Office Visit [place] [address] [place] [address] Carlos Moreno MD [address] [place] [address] 07/20/2023 2:30 PM EDT Office Visit Cardiology, [facility] [address] [place] [address] Octavio Bolivar, [address] [place] [address] 07/27/2023 2:30 PM EDT Office Visit Nephrology [address] [place] [address] Juliette Benjamin PA-C [address] [place] [address] Health Maintenance Due Date Last Done Comments DXA Scan 10/08/2018 10/08/2016, 08/09, 02/24/2012, Additional history exists Zoster Vaccines (3 of 3) 12/20/2018 10/25/2018, 01/2012 DTaP,Tdap,and Td Vaccines (2 - Td or Tdap) 12/11/2022 12/11/2012, 02/09/2000 Mammogram 12/20/2022 12/20/2021, 07/09, 07/22/2019, Additional history exists COVID-19 Vaccine ( season) 2023 09/06/2020, 08/16/2020 Influenza Vaccine (FLU shot) (#1) 2023 03/15/2022, 03/18/2021, 03/02/2020, Additional history exists Depression Screening 06/23/2023 06/23/2022, 02/20/2017, 03/10/2015 (Discussed) Albumin/Creatinine Ratio 07/25/2023 023, 03/19/2020, 08/31/2017, Additional history exists CKD HGB USE SMARTSET 10035 07/25/202307/24, 03/19/2020, 05/13/2019, Additional history exists CKD PHOS USE SMARTSET 67002 07/25/202307/09, 03/19/2020, 05/13/2019, Additional history exists TSH 07/25/2023 07/24/2022, 06/2021, 07/03/2020, Additional history exists *BISPHONATE OR OTHER ACCEPTABLE MEDICATION NEEDED FOR OSTEOPOROSIS (REFER TO SMARTSET #1146) Addressed 03/10/2015 (Declined) Overridden w ith the intention of not completing the topic Pneumococcal Vaccine: 65+ Years Completed 03/10/2015, 02/02/2004 VITAMIN D LEVEL ONCE IN A LIFETIME-USE SMARTSET# 02870 Completed 07/24/2022, 03/19/2020, 05/13/2019, Additional history exists GARDASIL-HPV IMMUNIZATION SERIES Aged [...] 3:18 PM 08/28/2003 3:18 PM Care Teams Mobile Lab Technician Relationship Specialty Start Date End Date Carlos Moreno MD [address] [facility] [place] [address] PCP - General Family Medicine 12/07/17 documented as of this encounter
--- NOTE | 2023-08-06 11:38 | Neurology Consultation ---
Date of Consultation August 06, 2023 Assessment & Plan (1) Embolic stroke: Patient presents with altered mental status found to have possible UTI, positive lyme titer and new embolic [employer] stroke on MRI. Suspect this combination is resulting in her current encephalopathy as her neuro exam is otherwise non-focal when she is awake. Upon review of her [facility] record she has known afib and was not anticoagulated. Given the size of her stroke would wait 7 days, then start eliquis monotherapy. Can use plavix in the meantime. -- Start Eliquis 7 days from yesterday -- Continue plavix for now, can stop plavix when eliquis is started -- Echo pending -- Therapy evals -- Defer to medicine for UTI/Lyme treatment Telehealth Consultation Telehealth Information Telehealth Information: I performed this visit using a real-time telehealth connection between my location and the patients location ([facility]). After connecting through interactive tele-video, patient was identified by name and d ate of and/or wristband check.Patient (or authorized healthcare outside medical sales representative) was informed that this was a telemedicine visit and it was being conducted confidentially over secure lines. My office door was closed and no one else was present in the room with me.Patient (or authorized healthcare outside medical sales representative) provided consent to proceed with the visit, expressed an understanding of privacy and security of the telemedicine visit, and gave permission to have a hospital outside medical sales representative in the room in order to assist with the visit and to conduct portions of the visit, as needed. I informed the patient (or authorized healthcare outside medical sales representative) that I reviewed their record and presented the opportunity for them to ask any questions regarding the visit today. The patient agreed to participate. History of Present Illness Reason for Consultation: Stroke Requesting Physician: Dr. Lara Attending Physician: Kevyn Lara MD History of Present Illness Alexia Downing is an 87 yo F presenting with altered mental status that began yesterday. The patients daughter is present at bedside and reports that the patient did not answer the phone as she normally would. At baseline is is fully functional and still drives short distances. The patient slept through the night last night and reports feeling very tired this morning. Allergies Allergy/AdvReac Type Severity Reaction Status Date / Time domperidone Allergy Unknown UNKNOWN Unverified 08/05/23 17:19 ibuprofen Allergy Unknown CANNOT Unverified 08/05/23 17:19 TAKE DUE KIDNEY FCT naproxen Allergy Unknown CANNOT Unverified 08/05/23 17:19 TAKE DUE TO KIDNEY FCT Penicillins Allergy Unknown HAS Verified 08/05/23 17:19 TOLERATED CEPHALOSPORINS Sulfa (Sulfonamide Allergy Unknown Unknown Verified 08/05/23 17:21 Antibiotics) ibandronate sodium Allergy Unknown Verified 08/05/23 17:20 [From Boniva] shellfish derived Allergy Unknown Verified 08/05/23 17:21 aspirin AdvReac Unknown Unknown Verified 08/05/23 17:19 Home Medications Medication Instructions Recorded Confirmed Type acetaminophen 500 mg tablet 1,000 mg PO QAM 08/05/23 08/05/23 History (Tylenol Extra Strength) amlodipine 2.5 mg tablet 2.5 mg PO QAM 08/05/23 08/05/23 History aspirin 81 mg tablet,delayed 81 mg PO DAILY 08/05/23 08/05/23 History release coenzyme Q10 10 mg capsule (Co 0 mg PO DAILY 08/05/23 08/05/23 History Q-10) famotidine 20 mg tablet 20 mg PO AMHS 08/05/23 08/05/23 History fentanyl 50 mcg/hr transdermal 1 patch topical [id number] 08/05/23 08/05/23 History patch fluticasone propionate 50 2 spray intranasal DAILY PRN Nasal 08/05/23 08/05/23 History mcg/actuation nasal Congestion spray,suspension (Flonase Allergy Relief) gabapentin 400 mg capsule 400 mg PO TID 08/05/23 08/05/23 History hydrochlorothiazide 25 mg tablet 12.5 mg PO QAM 08/05/23 08/05/23 History levothyroxine 75 mcg tablet 75 mcg PO QAM 08/05/23 08/05/23 History lisinopril 30 mg tablet 30 mg PO QAM 08/05/23 08/05/23 History metoprolol succinate 25 mg 25 mg PO .DAILY @ LUNCH 08/05/23 08/05/23 History tablet,extended release 24 hr pantoprazole 40 mg tablet,delayed 40 mg PO DAILY 08/05/23 08/05/23 History release rosuvastatin 5 mg tablet 5 mg PO DAILY 08/05/23 08/05/23 History Patient History Medical History Aortic valve sclerosis CKD (chronic kidney disease) stage 3, GFR 30-59 ml/min GERD (gastroesophageal reflux disease) H/O: HTN (hypertension) Hyperparathyroidism Hypothyroid IBS (irritable bowel syndrome) Spinal stenosis, lumbar Surgical History No pertinent past surgical history Social History Smoking Status: Never smoker Hx Alcohol Use: No Hx Substance Use: No Preferred Language: Belarusian Communication Ability: Effective Hand Rigger Required: No Beliefs That Will Affect Care: None Current Living Situation: Family current occupational status: retired Feels Safe at Home: Yes Safety Concerns: Feels Safe At This Time Assistive Devices: Cane, Denture - Upper, Denture - Lower and Glasses Review of Systems +Fatigue Physical Exam Alerts to voice, speech clear and fluent, able to read, name and repeat. Face symmetric, antigravity throughout, no pronator drift. No abnormal movements. Results & Data Vital Signs (Past 12 Hours) Vital Signs Temp Pulse Pulse Resp BP Pulse Ox O2 Del Method 08/06/23 07:52 36.7 C 62 18 144/73 H 93 Room Air 08/06/23 07:00 69 08/06/23 03:30 37.5 C 62 18 147/64 H 94 Room Air Laboratory Results Abnormal lab results 08/05/23 08/05/23 08/06/23 Range/Units 16:15 16:29 06:18 RBC 4.18 L (4.20-5.40) M/uL Hct 36.7 L (37.0-47.0) % MPV 9.0 L (9.4-12.4) fL Neut # (Auto) 7.84 H (1.40-6.50) K/uL [place] # (Auto) 0.89 H 1.19 H (0.11-0.59) K/uL Sodium 134 L 133 L (136-145) mmol/L BUN 24 H (6-23) mg/dl Creatinine 1.28 H (0.6-1.2) mg/dl Urine Blood 2+ H (Negative) Ur Leukocyte Esterase Trace H (Negative) Urine RBC (Auto) 10-30 H (0-4) /hpf U Epithel Cells (Auto) >30 H (0-5) /lpf Lyme Disease Screen Positive H (Negative) Lyme Disease IgG Ab Positive H (Negative) Diagnostic Findings MRI brain - embolic [employer] territory infarct CTA - Unremarkable (1) Embolic stroke Precerebral and cerebral artery: posterior cerebral artery Laterality of affected vessel: left Qualified Code(s): I63.432 - Cerebral infarction due to embolism of left posterior cerebral artery
--- NOTE | 2023-08-06 12:13 | Electrocardiogram Report ---
Test Reason : Blood Pressure : / mmHG Vent. Rate : 074 BPM Atrial Rate : 074 BPM P-R Int : 222 ms QRS Dur : 084 ms QT Int : 376 ms P-R-T Axes : 044 -41 056 degrees QTc Int : 417 ms Sinus rhythm with 1st degree A-V block Left axis deviation Moderate voltage criteria for LVH, may be normal variant ( R in aVL ) Anteroseptal infarct (cited on or before 20-JUL-2004) Abnormal ECG When compared with ECG of 17-JUN-2022 12:12, No significant change was found Confirmed by Dagoberto Sanford ([id number]) on 08/06/2023 12:13:21 PM Referred By: Confirmed By:Dagoberto Sanford
[2023-08-06] MEDS: METOPROLOL SUCC 25MG EXT REL TAB PO SCH (13:02)
--- NOTE | 2023-08-06 14:07 | Hospitalist Progress Note ---
Date of Service August 06, 2023 Assessment & Plan (1) AMS (altered mental status): Plan Pt is an 87yoF with PMHx significant for Hypothyroidism, HLD, hyperparathyroidism, HTN, GERD, IBS, CKD, DJD, chronic pain syndrome who presents with increased confusion that she states started the night prior to arrival. Acute embolic stroke Altered mental status Acute toxic/metabolic encephalopathy Pt states AMS started night before, daughter noticed when she did not get a regular call head CT, head and neck CTA with no acute findings Brain MRI -Acute ischemic injuries within the left occipital lobe and thalamus. No evidence of hemorrhagic transformation. Appreciate neurology input and recommendation-continue with Plavix for now and add Eliquis after about 7 days with known history of atrial fibrillation in [facility] Clinically much better and does not have any focal neurologic deficit but remains very lethargic PT/OT/Speech EEG ordered and pending Lethargy and sleepiness UA suggestive of infection, ordered urine Cx, -awaiting result before starting any antibiotic On daily fentanyl patch, possible narcotic side effect with gabapentin 400mg TID? Lyme Lyme titer positive for immunoglobin IgG but negative for IgM doubt any recent infection We will ask for PT and OT evaluation Will start doxycycline for now Hyponatremia Mild at 134 NSS @ 80 for 1 bag Abnormal EKG Pt with EKGs noting first degree heart block While not worrisome will order echo she is on a beta guilherme Continue to monitor on telemetry for potential progression Hyperparthyroidism Per [facility], nephrology recommended holding the home hctz On hold here CKD Cr stable, baseline of ~1.4 Continue to monitor Continue other home meds as ordered DVT prophylaxis: heparin SQ Diet: Dispo: Med/Surg with tele Admission and Anticipated Discharge Date Admission Date: August 05, 2023 Subjective 08/06/2023 The patient was seen and examined in telemetry unit in presence of the family members. She has been very sleepy and keeps her eyes shut all the time Has been opening the eyes and answering appropriately with any questions No evidence of any distress Review of Systems Review of Systems: All systems reviewed and are unremarkable except as noted below Physical Exam Physical Exam: Lying in bed without any acute distress Constitutional: + ill appearing and average body habitus Eyes: Closed ENMT: external ear and nose normal, oropharynx normal Neck: trachea midline, no thyromegaly Respiratory: no respiratory distress Auscultation: lungs clear to auscultation bilaterally Cardiovascular: Rate/Rhythm: regular rate and regular rhythm; not tachycardic Heart Sounds: normal S1 and normal S2; no murmur Extremities: no edema Gastrointestinal (Abdomen): Inspection/Auscultation: normal bowel sounds; abdomen not distended Percussion/Palpation: abdomen soft; abdomen nontender Musculoskeletal: No acute arthritis involving any joint Neurologic: normal touch/pain/proprioception and moves all extremities; no focal motor deficits Lymphatic: no cervical or axillary lymphadenopathy Results & Data Results & Data Vital Signs (Past 12 Hours) Vital Signs Temp Pulse Pulse Resp BP Pulse Ox O2 Del Method 08/06/23 11:32 37.1 C 58 L 20 95/55 L 91 Room Air 08/06/23 07:52 36.7 C 62 18 144/73 H 93 Room Air 08/06/23 07:00 69 08/06/23 03:30 37.5 C 62 18 147/64 H 94 Room Air Laboratory Results Short CBC 08/05/23 08/06/23 Range/Units 16:15 06:18 WBC 10.29 10.42 (4.8-10.8) K/ul Hgb 13.9 12.7 (12.0-16.0) g/dl Hct 40.5 36.7 L (37.0-47.0) % Plt Count 252 223 (130-400) K/uL BMP 08/05/23 08/06/23 16:15 06:18 Sodium 134 L 133 L Potassium 4.6 4.2 Chloride 101 103 Carbon Dioxide 26 23 BUN 24 H 16 Creatinine 1.28 H 1.12 Glucose 89 89 Calcium 9.9 9.1 Liver Function 08/05/23 08/06/23 Range/Units 16:15 06:18 Total Bilirubin 0.7 0.8 (0.2-1.0) mg/dl AST 15 14 (13-39) U/L ALT 11 9 (7-52) U/L Alkaline Phosphatase 49 42 (34-104) U/L Albumin 4.5 3.8 (3.4-5.0) gm/dl Urine 08/05/23 Range/Units 16:29 Urine Color Yellow Urine Appearance Clear (Clear) Urine pH 6.5 (4.5-7.5) Ur Specific [place] 1.019 (1.000-1.030) Urine Protein Negative (Negative) Urine Glucose (UA) Negative (Negative) Medications Administered Current Inpatient Medications Acetaminophen (Acetaminophen 500 Mg Tab) 1,000 mg PO QAM [facility] Stop: 09/05/23 08:59 Last Admin: 08/06/23 08:47 Dose: 1,000 mg Amlodipine Besylate (Amlodipine Besylate 5 Mg Tab) 2.5 mg PO QAM [facility] Stop: 09/05/23 08:59 Last Admin: 08/06/23 08:47 Dose: 2.5 mg Aspirin (Aspirin 81 Mg Ectab) 81 mg PO DAILY [facility] Stop: 09/05/23 08:59 Last Admin: 08/06/23 08:48 Dose: 81 mg Clopidogrel Bisulfate (Clopidogrel Bisulfate 75 Mg Tab) 75 mg PO QAM [facility] Stop: 09/05/23 08:59 Last Admin: 08/06/23 08:49 Dose: Not Given Famotidine (Famotidine 20 Mg Tab) 20 mg PO BID [facility] Stop: 09/05/23 08:59 Last Admin: 08/06/23 08:48 Dose: 20 mg Fentanyl (Fentanyl 50 Mcg/Hr Tdsy) 50 mcg TD Q3D@2100 [facility] Stop: 08/21/23 20:59 Fluticasone Propionate (Fluticasone Propionate Na Spr 16 Gm Btl) 2 sprays DENISE DAILY PRN PRN Reason: Nasal Congestion Stop: 09/04/23 21:51 Gabapentin (Gabapentin 400 Mg Cap) 400 mg PO TID [facility] Stop: 09/05/23 08:59 Last Admin: 08/06/23 13:02 Dose: Not Given Heparin Sodium (Porcine) (Heparin Sod 5,000 Unit/0.5 Ml Vial) 5,000 units SQ Q12 [facility] Stop: 09/05/23 08:59 Levothyroxine Sodium (Levothyroxine Sodium 75 Mcg Tablet) 75 mcg PO DAILYBB [facility] Stop: 09/05/23 06:29 Last Admin: 08/06/23 05:36 Dose: 75 mcg Lisinopril (Lisinopril 10 Mg Tab) 30 mg PO QAM [facility] Stop: 09/05/23 08:59 Last Admin: 08/06/23 08:48 Dose: 30 mg Metoprolol Succinate (Metoprolol Succ 25mg Ext Rel Tab) 25 mg PO DAILY@1200 [facility] Stop: 09/05/23 11:59 Last Admin: 08/06/23 13:02 Dose: Not Given Miscellaneous (Check Fentanyl Patch Placement) 1 each N/A QS [facility] Stop: 09/05/23 00:00 Last Admin: 08/06/23 08:47 Dose: 1 each Miscellaneous (Fentanyl Patch Remove & Waste) 1 each N/A Q3D@2058 [facility] Stop: 09/06/23 20:58 Ondansetron HCl (Ondansetron Inj 2 Mg/Ml 2 Ml Vial) 4 mg IV Q6H PRN PRN Reason: Nausea And Vomiting Stop: 09/04/23 22:26 Pantoprazole Sodium (Pantoprazole 40 Mg Tab) 40 mg PO DAILY [facility] Stop: 09/05/23 08:59 Last Admin: 08/06/23 08:47 Dose: 40 mg Polyethylene Glycol (Polyethylene (Miralax) 17 Gm Pack) 17 gm PO DAILY PRN PRN Reason: Constipation Stop: 09/04/23 22:26 Rosuvastatin Calcium (Rosuvastatin Calcium 5 Mg Tab) 5 mg PO DAILY [facility] Stop: 09/05/23 08:59 Last Admin: 08/06/23 08:47 Dose: 5 mg (1) AMS (altered mental status) Altered mental status type: unspecified Qualified Code(s): R41.82 - Altered mental status, unspecified
[2023-08-06] MEDS: DOXYCYCLINE HYCLATE 100 MG in DEXTROSE 5% MINI-B 100 ML IV SCH (16:38)
--- NOTE | 2023-08-07 11:26 | Hospitalist Progress Note ---
Date of Service August 07, 2023 Assessment & Plan (1) AMS (altered mental status): Plan Pt is an 87yoF with PMHx significant for Hypothyroidism, HLD, hyperparathyroidism, HTN, GERD, IBS, CKD, DJD, chronic pain syndrome who presents with increased confusion that she states started the night prior to arrival. Acute embolic stroke-paroxysmal atrial fibrillation Altered mental status Acute toxic/metabolic encephalopathy Pt states AMS started night before, daughter noticed when she did not get a regular call head CT, head and neck CTA with no acute findings Brain MRI -Acute ischemic injuries within the left occipital lobe and thalamus. No evidence of hemorrhagic transformation. Appreciate neurology input and recommendation-continue with Plavix for now and add Eliquis after about 7 days with known history of atrial fibrillation in [facility] Clinically much better and does not have any focal neurologic deficit but remains very lethargic PT/OT/Speech EEG is not done yet and likely not to be required given the history of stroke and no evidence of seizure or any abnormal movements of the limbs Echo of the heart showed: LV cavity is normal, there is mild concentric LVH, left ventricular wall motion is normal, LV systolic function is normal with EF 65 to 70%, grade 1 diastolic dysfunction, borderline left atrial enlargement, aortic valve sclerosis moderate without significant stenosis, there is moderate to severe mitral annular calcification, there is mild to moderate mitral regurgitation and mild tricuspid regurgitation She will have continued physical therapy in [facility] Discussed with the daughter in detail and she will be discharged this afternoon Lethargy and sleepiness UA suggestive of infection, ordered urine Cx, -awaiting result before starting any antibiotic On daily fentanyl patch, possible narcotic side effect with gabapentin 400mg TID? Lyme Lyme titer positive for immunoglobin IgG but negative for IgM doubt any recent infection We will ask for PT and OT evaluation Will start doxycycline for now Seems to be back to her baseline today and communicating normally without any evidence of excessive lethargy and/or sleepiness Doxy will be continued for a total of 10 days and the daughter wants to have it on board Hyponatremia Mild at 134 NSS @ 80 for 1 bag Sodium level remains minimally low at 133 Abnormal EKG Pt with EKGs noting first degree heart block While not worrisome will order echo she is on a beta guilherme Continue to monitor on telemetry for potential progression Hyperparthyroidism Per [facility], nephrology recommended holding the home hctz On hold here CKD Cr stable, baseline of ~1.4 Continue to monitor Creatinine has been normalized Continue other home meds as ordered DVT prophylaxis: heparin SQ Diet: HH Dispo: Med/Surg with tele Discussed with the daughter in detail and she will be discharged to [facility] this afternoon Admission and Anticipated Discharge Date Admission Date: August 05, 2023 Subjective 08/06/2023 The patient was seen and examined in telemetry unit in presence of the family members. She has been very sleepy and keeps her eyes shut all the time Has been opening the eyes and answering appropriately with any questions No evidence of any distress 08/07/2023 The patient was seen and examined in telemetry unit in presence of the daughter She has been feeling much better and denies any significant symptoms She is more alert and awake today and conversing normally She will be discharged to [facility] today Review of Systems Review of Systems: All systems reviewed and are unremarkable except as noted below Physical Exam Physical Exam: Lying in bed without any acute distress Constitutional: average body habitus; not ill appearing ENMT: external ear and nose normal, oropharynx normal Neck: trachea midline, no thyromegaly Respiratory: no respiratory distress Auscultation: lungs clear to auscultation bilaterally Cardiovascular: Rate/Rhythm: regular rate and regular rhythm; not tachycardic Heart Sounds: normal S1 and normal S2; no murmur Extremities: no edema Gastrointestinal (Abdomen): Inspection/Auscultation: normal bowel sounds; abdomen not distended Percussion/Palpation: abdomen soft; abdomen nontender Musculoskeletal: No acute arthritis involving any of the joint Neurologic: normal touch/pain/proprioception and moves all extremities; no focal motor deficits Lymphatic: no cervical or axillary lymphadenopathy Results & Data Results & Data Vital Signs (Past 12 Hours) Vital Signs Temp Pulse Pulse Resp BP Pulse Ox O2 Del Method 08/07/23 07:51 37.1 C 74 18 134/67 94 Room Air 08/07/23 07:13 62 08/07/23 03:03 36.9 C 59 L 18 135/69 94 Room Air Medications Administered Current Inpatient Medications Acetaminophen (Acetaminophen 500 Mg Tab) 1,000 mg PO [facility] Stop: 09/05/23 08:59 Last Admin: 08/07/23 09:02 Dose: 1,000 mg Amlodipine Besylate (Amlodipine Besylate 5 Mg Tab) 2.5 mg PO [facility] Stop: 09/05/23 08:59 Last Admin: 08/07/23 09:00 Dose: 2.5 mg Aspirin (Aspirin 81 Mg Ectab) 81 mg PO DAILY [facility] Stop: 09/05/23 08:59 Last Admin: 08/07/23 09:01 Dose: 81 mg Clopidogrel Bisulfate (Clopidogrel Bisulfate 75 Mg Tab) 75 mg PO QAM [facility] Stop: 09/05/23 08:59 Last Admin: 08/07/23 08:58 Dose: 75 mg Famotidine (Famotidine 20 Mg Tab) 20 mg PO BID [facility] Stop: 09/05/23 08:59 Last Admin: 08/07/23 08:58 Dose: 20 mg Fentanyl (Fentanyl 50 Mcg/Hr Tdsy) 50 mcg TD Q3D@2100 [facility] Stop: 08/21/23 20:59 Fluticasone Propionate (Fluticasone Propionate Na Spr 16 Gm Btl) 2 sprays DENISE DAILY PRN PRN Reason: Nasal Congestion Stop: 09/04/23 21:51 Gabapentin (Gabapentin 400 Mg Cap) 400 mg PO TID [facility] Stop: 09/05/23 08:59 Last Admin: 08/06/23 13:02 Dose: Not Given Heparin Sodium (Porcine) (Heparin Sod 5,000 Unit/0.5 Ml Vial) 5,000 units SQ Q12 [facility] Stop: 09/05/23 08:59 Doxycycline Hyclate 100 mg/ (Dextrose) 100 mls @ 50 mls/hr IV Q12H [facility] Stop: 08/16/23 14:29 Last Infusion: 08/07/23 03:48 Dose: Infused Levothyroxine Sodium (Levothyroxine Sodium 75 Mcg Tablet) 75 mcg PO DAILYBB [facility] Stop: 09/05/23 06:29 Last Admin: 08/07/23 05:46 Dose: 75 mcg Lisinopril (Lisinopril 10 Mg Tab) 30 mg PO QAM [facility] Stop: 09/05/23 08:59 Last Admin: 08/07/23 08:59 Dose: 30 mg Metoprolol Succinate (Metoprolol Succ 25mg Ext Rel Tab) 25 mg PO DAILY@1200 [facility] Stop: 09/05/23 11:59 Last Admin: 08/06/23 13:02 Dose: Not Given Miscellaneous (Check Fentanyl Patch Placement) 1 each N/A QS [facility] Stop: 09/05/23 00:00 Last Admin: 08/07/23 08:57 Dose: 1 each Miscellaneous (Fentanyl Patch Remove & Waste) 1 each N/A Q3D@2058 [facility] Stop: 09/06/23 20:58 Ondansetron HCl (Ondansetron Inj 2 Mg/Ml 2 Ml Vial) 4 mg IV Q6H PRN PRN Reason: Nausea And Vomiting Stop: 09/04/23 22:26 Pantoprazole Sodium (Pantoprazole 40 Mg Tab) 40 mg PO DAILY [facility] Stop: 09/05/23 08:59 Last Admin: 08/07/23 08:58 Dose: 40 mg Polyethylene Glycol (Polyethylene (Miralax) 17 Gm Pack) 17 gm PO DAILY PRN PRN Reason: Constipation Stop: 09/04/23 22:26 Rosuvastatin Calcium (Rosuvastatin Calcium 5 Mg Tab) 5 mg PO DAILY [facility] Stop: 09/05/23 08:59 Last Admin: 08/07/23 08:59 Dose: 5 mg (1) AMS (altered mental status) Altered mental status type: unspecified Qualified Code(s): R41.82 - Altered mental status, unspecified
[2023-08-07] MEDS ORDERED: fentaNYL 50 MCG/HR TDSY TD SCH (21:00)
--- NOTE | 2023-08-08 07:41 | Discharge Summary ---
Date of Service August 07, 2023 Admission HPI Per Admitting Provider Pt is an 87yoF with PMHx significant for Hypothyroidism, HLD, hyperparathyroidism, HTN, GERD, IBS, CKD, DJD, chronic pain syndrome who presents with increased confusion that she states started the night prior to arrival. Daughter however notes that her mother was last well about 9 pm last night but she noticed the acute confusion this morning. She states that she goes to work in the AM and her mother will usually text her by 11AM. However she did not receive a text today and her mother was not answering her phone calls. Eventually her mother answered a few hours later and told her she did not remember how to use the phone. Daughter states that when she got home things were in disarray, one dog was out. Pt states that she does not remember any of those events. Pt does note that she has been very tired recently. Very worn out. Sleeping quite a bit. Denies dysuria. Does have a chronic Hx of urinary incontinence. Denies fevers, chills or night sweats. They do note a prior episode of this before. Admission Exam Per Admitting Provider Physical Exam: General: Alert, takes some time to answer orientation questions. No acute distress Skin: No noted rashes or bruises Psych: Appropriate mood and affect Neuro: Orientation requires effort and pt aware it is happening HEENT: NC/AT Chest: Nontender to palpation. CV: RRR Resp: Breath sounds clear bilaterally, no increased effort of breathing. Abdomen: Soft, nontender, nondistended. Extremities: No edema in lower extremities bilaterally. Principal Diagnosis Acute embolic stroke, paroxysmal atrial fibrillation, acute metabolic and cephalopathy, hyperparathyroidism Discharge Exam Lying in bed without any acute distress Constitutional average body habitus; not ill appearing ENMT external ear and nose normal, oropharynx normal Neck trachea midline, no thyromegaly Respiratory no respiratory distress Auscultation: lungs clear to auscultation bilaterally Cardiovascular Rate/Rhythm: regular rate and regular rhythm; not tachycardic Heart Sounds: normal S1 and normal S2; no murmur Extremities: no edema Gastrointestinal (Abdomen) Inspection/Auscultation: normal bowel sounds; abdomen not distended Percussion/Palpation: abdomen soft; abdomen nontender Neurologic normal touch/pain/proprioception and moves all extremities; no focal motor deficits Lymphatic no cervical or axillary lymphadenopathy Discharge Data Allergies Allergy/AdvReac Type Severity Reaction Status Date / Time domperidone Allergy Unknown UNKNOWN Unverified 08/05/23 17:19 ibuprofen Allergy Unknown CANNOT Unverified 08/05/23 17:19 TAKE DUE KIDNEY FCT naproxen Allergy Unknown CANNOT Unverified 08/05/23 17:19 TAKE DUE TO KIDNEY FCT Penicillins Allergy Unknown HAS Verified 08/05/23 17:19 TOLERATED CEPHALOSPORINS Sulfa (Sulfonamide Allergy Unknown Unknown Verified 08/05/23 17:21 Antibiotics) ibandronate sodium Allergy Unknown Verified 08/05/23 17:20 [From Boniva] shellfish derived Allergy Unknown Verified 08/05/23 17:21 aspirin AdvReac Unknown Unknown Verified 08/05/23 17:19 Consultations 08/05/23 18:33 ED Decision to Admit Stat 08/06/23 08:00 Consult Neurology Routine Ordered Studies 08/05/23 16:22 CT angio head wo/w Stat CT angio neck with con Stat 08/06/23 00:56 MR brain wo/w con Urgent Hospital Course (1) AMS (altered mental status): Plan Pt is an 87yoF with PMHx significant for Hypothyroidism, HLD, hyperparathyroidism, HTN, GERD, IBS, CKD, DJD, chronic pain syndrome who presents with increased confusion that she states started the night prior to arrival. Acute embolic stroke-paroxysmal atrial fibrillation Altered mental status Acute toxic/metabolic encephalopathy Pt states AMS started night before, daughter noticed when she did not get a regular call head CT, head and neck CTA with no acute findings Brain MRI -Acute ischemic injuries within the left occipital lobe and thalamus. No evidence of hemorrhagic transformation. Appreciate neurology input and recommendation-continue with Plavix for now and add Eliquis after about 7 days with known history of atrial fibrillation in [facility] Clinically much better and does not have any focal neurologic deficit but remains very lethargic PT/OT/Speech EEG is not done yet and likely not to be required given the history of stroke and no evidence of seizure or any abnormal movements of the limbs Echo of the heart showed: LV cavity is normal, there is mild concentric LVH, left ventricular wall motion is normal, LV systolic function is normal with EF 65 to 70%, grade 1 diastolic dysfunction, borderline left atrial enlargement, aortic valve sclerosis moderate without significant stenosis, there is moderate to severe mitral annular calcification, there is mild to moderate mitral regurgitation and mild tricuspid regurgitation She will have continued physical therapy in [facility] Discussed with the daughter in detail and she will be discharged this afternoon Lethargy and sleepiness UA suggestive of infection, ordered urine Cx, -awaiting result before starting any antibiotic On daily fentanyl patch, possible narcotic side effect with gabapentin 400mg TID? Lyme Lyme titer positive for immunoglobin IgG but negative for IgM doubt any recent infection We will ask for PT and OT evaluation Will start doxycycline for now Seems to be back to her baseline today and communicating normally without any evidence of excessive lethargy and/or sleepiness Doxy will be continued for a total of 10 days and the daughter wants to have it on board Hyponatremia Mild at 134 NSS @ 80 for 1 bag Sodium level remains minimally low at 133 Abnormal EKG Pt with EKGs noting first degree heart block While not worrisome will order echo she is on a beta guilherme Continue to monitor on telemetry for potential progression Hyperparthyroidism Per [facility], nephrology recommended holding the home hctz On hold here CKD Cr stable, baseline of ~1.4 Continue to monitor Creatinine has been normalized Continue other home meds as ordered DVT prophylaxis: heparin SQ Diet: Dispo: Med/Surg with tele Discussed with the daughter in detail and she will be discharged to [facility] this afternoon Total Time Total Time Spent Total Time Spent (In Minutes): 45 minutes Discharge Plan Discharge Items Patient Disposition: Transfer Inpatient Rehab Fac Reason For Visit: ALTERED MENTAL STATUS Discharge Diagnosis: Acute embolic stroke, paroxysmal atrial fibrillation, acute metabolic and cephalopathy, hyperparathyroidism Condition on Discharge: Fair Activity: As commented below Activity Comment: Will need to continue PT and OT Non-emergency contact: Primary Care Provider Call non-emergency contact if: you have any medication questions and your symptoms worsen Follow-up/Referrals: Milton Moreno MD [Primary Care Provider] - (Please make an appointment with your PCP within 7 days following discharge from the facility) Diet: Heart Healthy Diet Texture: Easy to Chew Addtl Attending Provider Instructions: Please take precaution to avoid falls Take your medications as advised Stop aspirin and Plavix on 13 August and start Eliquis 2.5 mg twice daily on the same day Continue PT and OT Pending Studies at Discharge: No Stand-Alone Forms: My [facility] Skilled Items Patient informed of condition?: Yes DNR: No Discharge Level of Care: Acute rehab Communicable Disease: No Discharge Prognosis: Stable Lines: None Urinary Catheter: No Medications and DC Order Prescriptions: New clopidogrel 75 mg Tablet 75 mg PO QAM Qty: 5 0RF aspirin 81 mg Tablet,Delayed Release (Dr/Ec) 81 mg PO DAILY Qty: 5 0RF Eliquis 2.5 mg tablet 2.5 mg PO BID Qty: 60 0RF Rx Instructions: Start after stopping Aspirin and Plavix doxycycline hyclate 100 mg capsule 100 mg PO BID 10 Days Qty: 18 0RF Continued fentanyl 50 mcg/hr patch 72 hour 1 patch topical [id number] gabapentin 400 mg capsule 400 mg PO TID amlodipine 2.5 mg tablet 2.5 mg PO QAM acetaminophen [Tylenol Extra Strength] 500 mg Tablet 1,000 mg PO QAM levothyroxine 75 mcg tablet 75 mcg PO QAM famotidine 20 mg tablet 20 mg PO AMHS pantoprazole 40 mg tablet,delayed release (DR/EC) 40 mg PO DAILY lisinopril 30 mg tablet 30 mg PO QAM metoprolol succinate 25 mg tablet extended release 24 hr 25 mg PO .DAILY @ LUNCH fluticasone propionate [Flonase Allergy Relief] 50 mcg/actuation Morris,Suspension 2 spray INTRANASAL DAILY PRN (Reason: Nasal Congestion) Rx Instructions: administer into each nostril rosuvastatin 5 mg tablet 5 mg PO DAILY coenzyme Q10 [Co Q-10] 10 mg Capsule 0 mg PO DAILY Rx Instructions: TAKES 3 TABS OF UNKNOWN STRENGTH Discontinued aspirin [Aspir-Low] 81 mg Tablet,Delayed Release (Dr/Ec) 81 mg PO DAILY hydrochlorothiazide 25 mg tablet 12.5 mg PO QAM Rx Instructions: PER PHARMACY Discharge Orders: Discharge Order (Routine); Ordered 08/07/23 Ordered By: Kevyn Lara Admission Data Admit Date/Time: 08/05/23 18:33 Attending Provider: Kevyn Lara Admit Provider: Vandana Bryson Primary Care Provider: Milton Moreno Other Providers: Vandana Bryson; Kassandra Pierson; Roshan Armstrong; Kassandra Melendez; Boogie Garcia; Brennan Leal; Terrell Schafer; Hiram Barrios; Skylar Fishman; Moody Ott; Nabeel Lund; Zuleika Cornejo; Nathaniel Foreman; Darlene Kinney; Breann Amaya; Hiram Flanagan; [facility] Other Interventions: Discharge Summary Assessment (RN) Last Done: 08/07/23 12:41
[2023-08-08 19:28] LABS: Babesia microti DNA Not Detected (Not Detected)
== END 2023-08-07 14:35 | DRG 64 ==
LOC: ED 15:58 → SUATTDRO 18:33 → 3N 18:33 → 2S 22:54 → 2N 08-06 20:32